=== PATIENT | male | born 1995 | race Caucasian/White ===

== ENCOUNTER 2021-05-23 09:25 | Inpatient (IN) | payer BC, MEDICAID ==
[2021-05-23] MEDS ORDERED: Sodium Chloride 0.9% 10 ML Syringe FLUSH PRN (10:16)
--- NOTE | 2021-05-23 10:16 | EDM.PDOC ---
ED HPI GENERAL MEDICAL PROBLEM - General Chief Complaint: Respiratory Problem Stated Complaint: covid Time Seen by Provider: 05/23/21 10:01 Source of Information: Reports: Patient, RN Notes Reviewed History Limitations: Reports: No Limitations - History of Present Illness INITIAL COMMENTS - FREE TEXT/NARRATIVE: Patient sent over from walk-in clinic with low oxygen, low 60s. Patient been dealing with a positive Covid test on the he started having symptoms on 16 May. His BMI is extremely elevated, greater than 30, no history of any underlying lung problems he been trying to "quit smoking cigarettes no history of any asthma or pneumonia. No history of underlying heart condition. Patient has had fevers and chills off and on, lost his sense of taste, has had some mild nausea no vomiting has had some loose stool. No burning pain or blood in the urine he has had increasing urinary frequency however. Some mild aches but just generally feeling more overall weak and in condition. No headaches no fainting spell but does feel lightheaded in general. Has noted some increasing work of breathing and has had difficulty laying flat at night and has to be sitting up occasionally. no Covid vaccination. - Related Data Allergies Allergy/AdvReac Type Severity Reaction Status Date / Time No Known Allergies Allergy Verified 05/23/21 09:41 Home Meds: Home Meds . [No Known Home Meds] 05/23/21 [History] ED ROS GENERAL - Review of Systems Review Of Systems: See Below Constitutional: Reports: Fever, Chills, Diaphoresis HEENT: Reports: Rhinitis. Denies: Throat Pain Respiratory: Reports: Shortness of Breath, Cough. Denies: Pleuritic Chest Pain Cardiovascular: Reports: Dyspnea on Exertion, Lightheadedness, PND. Denies: Chest Pain, Syncope Endocrine: Reports: Fatigue GI/Abdominal: Reports: Diarrhea, Nausea. Denies: Abdominal Pain, Bloody Stool, Vomiting : Reports: Frequency. Denies: Dysuria Musculoskeletal: Reports: Muscle Pain Skin: Reports: No Symptoms Neurological: Reports: No Symptoms Psychiatric: Reports: No Symptoms ED EXAM, GENERAL - Physical Exam Exam: See Below Exam Limited By: No Limitations General Appearance: Alert, Mild Distress, Moderate Distress Throat/Mouth: Normal Inspection, Normal Oropharynx, Normal Voice Head: Atraumatic, Normocephalic Neck: Normal Inspection, Non-Tender Respiratory/Chest: Respiratory Distress, Decreased Breath Sounds, Rhonchi. No: Wheezing, Stridor, Accessory Muscle Use Cardiovascular: Normal Peripheral Pulses, Regular Rate, Rhythm GI/Abdominal: Normal Bowel Sounds, Soft, Non-Tender Extremities: Normal Inspection, No Pedal Edema Neurological: Alert, Oriented, CN II-XII Intact Psychiatric: Normal Affect Skin Exam: Warm #1 Interpretation EKG Date: 05/23/21 Rhythm: NSR EKG Interpretation Comments: Reviewed EKG showing sinus rhythm rate of 94 ID 131 QRS is 109 QT corrected 457 RSR prime in lead V1 and V2 no acute ST elevation or ischemic changes noted. Course - Vital Signs Text/Narrative:: Positive Covid rule out hypoxia secondary Covid rule out PE or other etiology such as secondary pneumonia, he does look mildly distressed. His BMI is greater than 30, concerning for need of hospitalization. rule out Acute coronary syndrome, CHF Last Recorded V/S: Last Vital Signs Temp 99.1 F 05/23/21 09:38 Pulse 81 05/23/21 12:25 Resp 18 05/23/21 12:25 BP 131/74 05/23/21 09:38 Pulse Ox 93 L 05/23/21 12:25 - Orders/Labs/Meds Orders: Active Orders 24 hr Category Date Time Status Cardiac Monitoring [RC] . DIRECTED Care 05/23/21 10:16 Active Peripheral IV Care [RC] . DIRECTED Care 05/23/21 10:17 Active PROCALCITONIN [REF] Stat Lab 05/23/21 10:10 Received Sodium Chloride 0.9% [Saline Flush] Med 05/23/21 10:16 Active 10 ml FLUSH ASDIRECTED PRN Peripheral IV Insertion Adult [OM.PC] Stat Oth 05/23/21 10:16 Ordered RT Oxygen High Flow [RESPCARE] Stat Oth 05/23/21 10:18 Active EKG 12 Lead [EK] Stat Ther 05/23/21 10:16 Ordered Medication Orders Sodium Chloride (Sodium Chloride 0.9% 10 Ml Syringe) 10 ml FLUSH ASDIRECTED PRN PRN Reason: Keep Vein Open Last Admin: 05/23/21 10:20 Dose: 10 ml Documented by: NAM Labs: Laboratory Tests 05/23/21 05/23/21 05/23/21 Range/Units 10:10 10:10 10:10 WBC 10.62 H (4.23-9.07) K/mm3 RBC 5.29 (4.63-6.08) M/mm3 Hgb 14.1 (13.7-17.5) gm/dl Hct 43.0 (40.1-51.0) % MCV 81.3 (79.0-92.2) fl MCH 26.7 (25.7-32.2) pg MCHC 32.8 (32.2-35.5) g/dl RDW Std Deviation 46.6 H (35.1-43.9) fL Plt Count 175 (163-337) K/mm3 MPV 9.1 L (9.4-12.3) fl Neut % (Auto) 81.8 H (34.0-67.9) % Lymph % (Auto) 10.1 L (21.8-53.1) % Rice % (Auto) 6.2 (5.3-12.2) % Eos % (Auto) 0 L (0.8-7.0) Baso % (Auto) 0.2 (0.1-1.2) % Neut # (Auto) 8.69 H (1.78-5.38) K/mm3 Lymph # (Auto) 1.07 L (1.32-3.57) K/mm3 Rice # (Auto) 0.66 (0.30-0.82) K/mm3 Eos # (Auto) 0.00 L (0.04-0.54) K/mm3 Baso # (Auto) 0.02 (0.01-0.08) K/mm3 D-Dimer, Quantitative 1.22 H (0.19-0.50) mg/L VBG pH (7.30-7.40) VBG pCO2 (41-51) mmHg VBG pO2 (40-80) mmHG VBG HCO3 (22-26) meq/L VBG O2 Saturation VBG Base Excess (-4.0-2.0) O2 Delivery Device Oxygen Flow Rate Sodium 137 (136-145) mEq/L Potassium 3.5 (3.5-5.1) mEq/L Chloride 99 (98-107) mEq/L Carbon Dioxide 28 (21-32) mEq/L Anion Gap 13.5 (5-15) BUN 16 (7-18) mg/dL Creatinine 1.2 (0.7-1.3) mg/dL Est Cr Clr Drug Dosing 75.08 mL/min Estimated GFR (MDRD) > 60 (>60) mL/min BUN/Creatinine Ratio 13.3 L (14-18) Glucose 106 H (70-99) mg/dL Lactic Acid (0.4-2.0) mmol/L Calcium 8.1 L (8.5-10.1) mg/dL Total Bilirubin 0.6 (0.2-1.0) mg/dL AST 72 H (15-37) U/L ALT 58 (16-63) U/L Alkaline Phosphatase 80 (46-116) U/L Troponin I < 0.017 (0.00-0.056) ng/mL C-Reactive Protein 10.6 H* (<1.0) mg/dL NT-Pro-B Natriuret Pep (0-125) pg/mL Total Protein 7.3 (6.4-8.2) g/dl Albumin 3.1 L (3.4-5.0) g/dl Globulin 4.2 gm/dL Albumin/Globulin Ratio 0.7 L (1-2) 05/23/21 05/23/21 05/23/21 Range/Units 10:10 10:10 10:16 WBC (4.23-9.07) K/mm3 RBC (4.63-6.08) M/mm3 Hgb (13.7-17.5) gm/dl Hct (40.1-51.0) % MCV (79.0-92.2) fl MCH (25.7-32.2) pg MCHC (32.2-35.5) g/dl RDW Std Deviation (35.1-43.9) fL Plt Count (163-337) K/mm3 MPV (9.4-12.3) fl Neut % (Auto) (34.0-67.9) % Lymph % (Auto) (21.8-53.1) % Rice % (Auto) (5.3-12.2) % Eos % (Auto) (0.8-7.0) Baso % (Auto) (0.1-1.2) % Neut # (Auto) (1.78-5.38) K/mm3 Lymph # (Auto) (1.32-3.57) K/mm3 Rice # (Auto) (0.30-0.82) K/mm3 Eos # (Auto) (0.04-0.54) K/mm3 Baso # (Auto) (0.01-0.08) K/mm3 D-Dimer, Quantitative (0.19-0.50) mg/L VBG pH 7.41 H (7.30-7.40) VBG pCO2 40.1 L (41-51) mmHg VBG pO2 44.0 (40-80) mmHG VBG HCO3 25.0 (22-26) meq/L VBG O2 Saturation 74.9 VBG Base Excess 0.9 (-4.0-2.0) O2 Delivery Device Nasal cannula Oxygen Flow Rate 6.0 Sodium (136-145) mEq/L Potassium (3.5-5.1) mEq/L Chloride (98-107) mEq/L Carbon Dioxide (21-32) mEq/L Anion Gap (5-15) BUN (7-18) mg/dL Creatinine (0.7-1.3) mg/dL Est Cr Clr Drug Dosing mL/min Estimated GFR (MDRD) (>60) mL/min BUN/Creatinine Ratio (14-18) Glucose (70-99) mg/dL Lactic Acid 1.0 (0.4-2.0) mmol/L Calcium (8.5-10.1) mg/dL Total Bilirubin (0.2-1.0) mg/dL AST (15-37) U/L ALT (16-63) U/L Alkaline Phosphatase (46-116) U/L Troponin I (0.00-0.056) ng/mL C-Reactive Protein (<1.0) mg/dL NT-Pro-B Natriuret Pep 54 (0-125) pg/mL Total Protein (6.4-8.2) g/dl Albumin (3.4-5.0) g/dl Globulin gm/dL Albumin/Globulin Ratio (1-2) Meds: Medications Generic Name Dose Route Start Last Admin Trade Name Freq PRN Reason Stop Dose Admin Sodium Chloride 10 ml 05/23/21 10:16 05/23/21 10:20 Sodium Chloride 0.9% 10 Ml Syringe FLUSH 10 ml ASDIRECTED PRN Administration Keep Vein Open - Radiology Interpretation Free Text/Narrative:: Called CT scan for the contrast part no obvious definite pulmonary embolism are seen at least in the main or proximal segmental branches however there is diffuse parenchymal densities in both sides of the chest highly suspicious for Covid pneumonia degenerative changes of the spine noted fatty infiltrated hook of the liver AB venous blood gas shows a pH of 7.41 PCO2 is 40 white count is 10,600 hemoglobin 14 [place] 43 platelet count is 175,008.69 neutrophils 1.07 lymphocytes D-dimer 1.22 sodium 137 testing 3.5 chloride 99 CO2 28 BUN 16 creatinine 1.2 GFR greater [place] 60 8 sugar 106 calcium 8.1 troponin negative CRP 10.6 albumin 3.1 Departure - Departure Time of Disposition: 12:45 Disposition: Admitted As Inpatient 66 Clinical Impression: COVID, Hypoxia - Discharge Information Forms: ED Department Discharge Sepsis Event Note (ED) - Evaluation Sepsis Screening Result: Possible Sepsis Risk - Focused Exam Vital Signs: Vital Signs Temp Pulse Resp BP Pulse Ox Pulse Ox 05/23/21 12:25 81 18 93 L 05/23/21 10:57 91 L 05/23/21 09:38 99.1 F 92 24 H 131/74 65 L - My Orders Last 24 Hours: My Active Orders 05/23/21 10:10 PROCALCITONIN [REF] Stat 05/23/21 10:16 Cardiac Monitoring [RC] . DIRECTED Sodium Chloride 0.9% [Saline Flush] 10 ml FLUSH ASDIRECTED PRN Peripheral IV Insertion Adult [OM.PC] Stat EKG 12 Lead [EK] Stat 05/23/21 10:17 Peripheral IV Care [RC] . DIRECTED 05/23/21 10:18 RT Oxygen High Flow [RESPCARE] Stat - Assessment/Plan Last 24 Hours: My Active Orders 05/23/21 10:10 PROCALCITONIN [REF] Stat 05/23/21 10:16 Cardiac Monitoring [RC] . DIRECTED Sodium Chloride 0.9% [Saline Flush] 10 ml FLUSH ASDIRECTED PRN Peripheral IV Insertion Adult [OM.PC] Stat EKG 12 Lead [EK] Stat 05/23/21 10:17 Peripheral IV Care [RC] . DIRECTED 05/23/21 10:18 RT Oxygen High Flow [RESPCARE] Stat
--- NOTE | 2021-05-23 12:13 | CT ---
CT chest Technique: Multiple axial sections through the chest were obtained. Intravenous contrast was utilized. Study has been performed as a pulmonary angiogram protocol. Comparison: No prior chest imaging is available. Findings: Pulmonary arteries are not optimally opacified. Findings most likely relate to the patient's body habitus. No gross filling defects are seen within the main or proximal segmental branches to indicate definite pulmonary embolism. Thoracic aorta shows no aneurysm. No mediastinal or hilar adenopathy is seen. No pericardial thickening is seen. Diffuse fatty infiltration is noted within the liver. Lung window settings were reviewed which show diffuse parenchymal changes throughout both lungs. No pleural effusions are seen. Bone window settings were reviewed which show endplate spurring within the mid and lower thoracic spine. No acute osseous abnormality is appreciated. Impression: 1. Less than optimal pulmonary angiogram. No definite findings of pulmonary embolism are seen within the main or proximal segmental branches. 2. Diffuse parenchymal densities within both sides of the chest highly suspicious for prominent COVID pneumonia. Please correlate. 3. Degenerative change within the spine is noted. 4. Fatty infiltration within the liver. Diagnostic code #3
[2021-05-23] MEDS ORDERED: REMDESIVIR 200 MG in Sodium Chloride 0.9% 250 ML IV ONE (12:48)
[2021-05-23] MEDS ORDERED: Dexamethasone 4 MG/ML SDV IVPUSH ONE (12:49)
[2021-05-23] MEDS ORDERED: REMDESIVIR 100 MG ONE ×2 (16:23→16:30)
[2021-05-23] MEDS ORDERED: Sodium Chloride 0.9% 250 ML ONE (16:25)
--- NOTE | 2021-05-23 17:24 | PCM.HP.2 ---
H&P History of Present Illness - General Date of Service: 05/23/21 Admit Problem/Dx: Admission Diagnosis/Problem Admission Diagnosis/Problem Hypoxia - History of Present Illness Initial Comments - Free Text/Narative: 26-year-old morbidly obese male presents to the emergency department from the walk-in clinic with oxygen saturations in the 60s. Patient states that he first started developing symptoms of Covid on May 06 and was tested positive on the . He developed worsening shortness of breath, fatigue, and cough over the last few days until his parents finally told him to go to the walk-in [place] clinic. Patient states he has not had vaccination against Covid. He has no other chronic medical problems and does not smoke. He does state he has had off-and-on fevers, loss of taste and smell, and mild nausea. CT angio of the chest showed less than optimal pulmonary angiogram. No definite findings of pulmonary embolism are seen within the main or proximal segmental branches. Diffuse parenchymal densities within both sides of the chest highly suspicious for prominent COVID-19 Pneumonia. Degenerative change within the spine is noted. Fatty infiltration within the liver. Lab work was significant for C-reactive protein of 10.6, D-dimer 1.22, and white count of 10.62. Otherwise no significant lab findings. Patient was placed on high flow nasal cannula and transferred to the ICU. - Related Data Allergies/Adverse Reactions: Allergies Allergy/AdvReac Type Severity Reaction Status Date / Time No Known Allergies Allergy Verified 05/23/21 09:41 Home Medications: Home Meds . [No Known Home Meds] 05/23/21 [History] Past Medical History - Past Health History Medical/Surgical History: Denies Medical/Surgical History Endocrine/Metabolic History: Reports: Obesity/BMI 30+ - Infectious Disease History Infectious Disease History: Reports: Novel Coronavirus Social & Family History - Tobacco Use Tobacco Use Status *Q: Never Tobacco User - Recreational Drug Use Recreational Drug Use: No H&P Review of Systems - Review of Systems: Review Of Systems: Comprehensive ROS is negative, except as noted in HPI. Exam - Exam Exam: See Below - Vital Signs Vital Signs: Last Vital Signs Temp 97.8 F 05/23/21 16:59 Pulse 86 05/23/21 16:59 Resp 28 H 05/23/21 16:59 BP 133/71 05/23/21 16:59 Pulse Ox 92 L 10/03/21 16:59 Weight: 425 lb 1 oz - Exam Quality Assessment: Supplemental Oxygen General: Alert, Oriented, 4 HEENT: Conjunctiva Clear, Hearing Intact, Mucosa Moist & [place], Normal Nasal Septum Neck: Supple, Trachea Midline, 2 Lungs: Decreased Breath Sounds, Crackles (Throughout both lung [place]). No: Normal Respiratory Effort (Increased respiratory rate and effort) Cardiovascular: Regular Rate, Regular Rhythm GI/Abdominal Exam: Normal Bowel Sounds, Soft, Non-Tender, No Organomegaly, No Distention (Morbidly obese) Extremities: Normal Inspection, Normal Range of Motion, Non-Tender, No Pedal Edema, Normal Capillary Refill Skin: Warm, Dry, Intact Neurological: Cranial Nerves Intact Neuro Extensive - Mental Status: Alert, Oriented x3, Normal Mood/Affect, Normal Cognition, Memory Intact Neuro Extensive - Motor, Sensory, Reflexes: CN II-XII Intact, Normal Gait, Normal Reflexes Psychiatric: Alert, Normal Affect, Normal Mood - Patient Data Lab Results Last 24 hrs: Laboratory Results - last 24 hr 05/23/21 05/23/21 05/23/21 Range/Units 10:10 10:10 10:10 WBC 10.62 H (4.23-9.07) K/mm3 RBC 5.29 (4.63-6.08) M/mm3 Hgb 14.1 (13.7-17.5) gm/dl Hct 43.0 (40.1-51.0) % MCV 81.3 (79.0-92.2) fl MCH 26.7 (25.7-32.2) pg MCHC 32.8 (32.2-35.5) g/dl RDW Std Deviation 46.6 H (35.1-43.9) fL Plt Count 175 (163-337) K/mm3 MPV 9.1 L (9.4-12.3) fl Neut % (Auto) 81.8 H (34.0-67.9) % Lymph % (Auto) 10.1 L (21.8-53.1) % Nash % (Auto) 6.2 (5.3-12.2) % Eos % (Auto) 0 L (0.8-7.0) Baso % (Auto) 0.2 (0.1-1.2) % Neut # (Auto) 8.69 H (1.78-5.38) K/mm3 Lymph # (Auto) 1.07 L (1.32-3.57) K/mm3 Nash # (Auto) 0.66 (0.30-0.82) K/mm3 Eos # (Auto) 0.00 L (0.04-0.54) K/mm3 Baso # (Auto) 0.02 (0.01-0.08) K/mm3 Manual Slide Review Normal smear D-Dimer, Quantitative 1.22 H (0.19-0.50) mg/L VBG pH (7.30-7.40) VBG pCO2 (41-51) mmHg VBG pO2 (40-80) mmHG VBG HCO3 (22-26) meq/L VBG O2 Saturation VBG Base Excess (-4.0-2.0) O2 Delivery Device Oxygen Flow Rate Sodium 137 (136-145) mEq/L Potassium 3.5 (3.5-5.1) mEq/L Chloride 99 (98-107) mEq/L Carbon Dioxide 28 (21-32) mEq/L Anion Gap 13.5 (5-15) BUN 16 (7-18) mg/dL Creatinine 1.2 (0.7-1.3) mg/dL Est Cr Clr Drug Dosing 75.08 mL/min Estimated GFR (MDRD) > 60 (>60) mL/min BUN/Creatinine Ratio 13.3 L (14-18) Glucose 106 H (70-99) mg/dL Lactic Acid (0.4-2.0) mmol/L Calcium 8.1 L (8.5-10.1) mg/dL Total Bilirubin 0.6 (0.2-1.0) mg/dL Direct Bilirubin (0.0-0.2) mg/dl Indirect Bilirubin AST 72 H (15-37) U/L ALT 58 (16-63) U/L Alkaline Phosphatase 80 (46-116) U/L Troponin I < 0.017 (0.00-0.056) ng/mL C-Reactive Protein 10.6 H* (<1.0) mg/dL NT-Pro-B Natriuret Pep (0-125) pg/mL Total Protein 7.3 (6.4-8.2) g/dl Albumin 3.1 L (3.4-5.0) g/dl Globulin 4.2 gm/dL Albumin/Globulin Ratio 0.7 L (1-2) 05/23/21 05/23/21 05/23/21 Range/Units 10:10 10:10 10:16 WBC (4.23-9.07) K/mm3 RBC (4.63-6.08) M/mm3 Hgb (13.7-17.5) gm/dl Hct (40.1-51.0) % MCV (79.0-92.2) fl MCH (25.7-32.2) pg MCHC (32.2-35.5) g/dl RDW Std Deviation (35.1-43.9) fL Plt Count (163-337) K/mm3 MPV (9.4-12.3) fl Neut % (Auto) (34.0-67.9) % Lymph % (Auto) (21.8-53.1) % Nash % (Auto) (5.3-12.2) % Eos % (Auto) (0.8-7.0) Baso % (Auto) (0.1-1.2) % Neut # (Auto) (1.78-5.38) K/mm3 Lymph # (Auto) (1.32-3.57) K/mm3 Nash # (Auto) (0.30-0.82) K/mm3 Eos # (Auto) (0.04-0.54) K/mm3 Baso # (Auto) (0.01-0.08) K/mm3 Manual Slide Review D-Dimer, Quantitative (0.19-0.50) mg/L VBG pH 7.41 H (7.30-7.40) VBG pCO2 40.1 L (41-51) mmHg VBG pO2 44.0 (40-80) mmHG VBG HCO3 25.0 (22-26) meq/L VBG O2 Saturation 74.9 VBG Base Excess 0.9 (-4.0-2.0) O2 Delivery Device Nasal cannula Oxygen Flow Rate 6.0 Sodium (136-145) mEq/L Potassium (3.5-5.1) mEq/L Chloride (98-107) mEq/L Carbon Dioxide (21-32) mEq/L Anion Gap (5-15) BUN (7-18) mg/dL Creatinine (0.7-1.3) mg/dL Est Cr Clr Drug Dosing mL/min Estimated GFR (MDRD) (>60) mL/min BUN/Creatinine Ratio (14-18) Glucose (70-99) mg/dL Lactic Acid 1.0 (0.4-2.0) mmol/L Calcium (8.5-10.1) mg/dL Total Bilirubin (0.2-1.0) mg/dL Direct Bilirubin (0.0-0.2) mg/dl Indirect Bilirubin AST (15-37) U/L ALT (16-63) U/L Alkaline Phosphatase (46-116) U/L Troponin I (0.00-0.056) ng/mL C-Reactive Protein (<1.0) mg/dL NT-Pro-B Natriuret Pep 54 (0-125) pg/mL Total Protein (6.4-8.2) g/dl Albumin (3.4-5.0) g/dl Globulin gm/dL Albumin/Globulin Ratio (1-2) 05/23/21 Range/Units 13:22 WBC (4.23-9.07) K/mm3 RBC (4.63-6.08) M/mm3 Hgb (13.7-17.5) gm/dl Hct (40.1-51.0) % MCV (79.0-92.2) fl MCH (25.7-32.2) pg MCHC (32.2-35.5) g/dl RDW Std Deviation (35.1-43.9) fL Plt Count (163-337) K/mm3 MPV (9.4-12.3) fl Neut % (Auto) (34.0-67.9) % Lymph % (Auto) (21.8-53.1) % Nash % (Auto) (5.3-12.2) % Eos % (Auto) (0.8-7.0) Baso % (Auto) (0.1-1.2) % Neut # (Auto) (1.78-5.38) K/mm3 Lymph # (Auto) (1.32-3.57) K/mm3 Nash # (Auto) (0.30-0.82) K/mm3 Eos # (Auto) (0.04-0.54) K/mm3 Baso # (Auto) (0.01-0.08) K/mm3 Manual Slide Review D-Dimer, Quantitative (0.19-0.50) mg/L VBG pH (7.30-7.40) VBG pCO2 (41-51) mmHg VBG pO2 (40-80) mmHG VBG HCO3 (22-26) meq/L VBG O2 Saturation VBG Base Excess (-4.0-2.0) O2 Delivery Device Oxygen Flow Rate Sodium (136-145) mEq/L Potassium (3.5-5.1) mEq/L Chloride (98-107) mEq/L Carbon Dioxide (21-32) mEq/L Anion Gap (5-15) BUN (7-18) mg/dL Creatinine (0.7-1.3) mg/dL Est Cr Clr Drug Dosing mL/min Estimated GFR (MDRD) (>60) mL/min BUN/Creatinine Ratio (14-18) Glucose (70-99) mg/dL Lactic Acid (0.4-2.0) mmol/L Calcium (8.5-10.1) mg/dL Total Bilirubin 0.7 (0.2-1.0) mg/dL Direct Bilirubin 0.30 H (0.0-0.2) mg/dl Indirect Bilirubin 0.40 AST 75 H (15-37) U/L ALT 57 (16-63) U/L Alkaline Phosphatase 81 (46-116) U/L Troponin I (0.00-0.056) ng/mL C-Reactive Protein (<1.0) mg/dL NT-Pro-B Natriuret Pep (0-125) pg/mL Total Protein 7.5 (6.4-8.2) g/dl Albumin 3.2 L (3.4-5.0) g/dl Globulin 4.3 gm/dL Albumin/Globulin Ratio 0.7 L (1-2) Result Diagrams: 05/23/21 10:10 05/23/21 10:10 Sepsis Event Note - Evaluation Sepsis Screening Result: Possible Sepsis Risk - Focused Exam Vital Signs: Vital Signs Temp Temp Pulse Pulse Resp BP BP 05/23/21 16:59 97.8 F 86 28 H 133/71 05/23/21 14:00 05/23/21 12:25 81 18 05/23/21 10:57 05/23/21 09:38 99.1 F 92 24 H 131/74 Pulse Ox Pulse Ox 05/23/21 16:59 92 L 05/23/21 14:00 89 L 05/23/21 12:25 93 L 05/23/21 10:57 91 L 05/23/21 09:38 65 L - Problem List (1) Pneumonia due to COVID-19 virus SNOMED Code(s): 965083759605547167 ICD Code: U07.1 - COVID-19; J12.82 - PNEUMONIA DUE TO CORONAVIRUS DISEASE 2019 Status: Acute Current Visit: Yes (2) Respiratory failure SNOMED Code(s): 686263703 ICD Code: J96.90 - RESPIRATORY FAILURE, UNSP, UNSP W HYPOXIA OR HYPERCAPNIA Status: Acute Current Visit: Yes Problem List Initiated/Reviewed/Updated: Yes Orders Last 24hrs: Active Orders 24 hr Category Date Time Status Admission Status [Patient Status] [ADT] Routine ADT 05/23/21 16:46 Active PROCALCITONIN [REF] Stat Lab 05/23/21 10:10 Received Sodium Chloride 0.9% [Saline Flush] Med 05/23/21 10:16 Active 10 ml FLUSH ASDIRECTED PRN Peripheral IV Insertion Adult [OM.PC] Stat Oth 05/23/21 10:16 Ordered RT Oxygen High Flow [RESPCARE] Stat Oth 05/23/21 10:18 Active EKG 12 Lead [EK] Stat Ther 05/23/21 10:16 Ordered Medication Orders Sodium Chloride (Sodium Chloride 0.9% 10 Ml Syringe) 10 ml FLUSH ASDIRECTED PRN PRN Reason: Keep Vein Open Last Admin: 05/23/21 10:20 Dose: 10 ml Documented by: NAM Assessment/Plan Comment:: 26-year-old morbidly obese male admitted for respiratory failure secondary to COVID-19 pneumonia. COVID-19 pneumonia Respiratory failure * Presented to the [facility] walk-in clinic with oxygen saturations in the 60s * Placed on high flow nasal cannula in the emergency department * CTA of the chest revealed Covid pneumonia but no obvious PE * CRP 10.6, and WBC 10.62 * Given remdesivir and dexamethasone in the emergency department * Unvaccinated against Covid Fatty liver * Mild elevation in AST with normal ALT, alkaline phosphatase, and total bilirubin * Albumin slightly low at 3.1, likely secondary to COVID-19 * CT scan of the chest demonstrated fatty liver Plan * Admit to ICU * RT, Acapella, incentive spirometer * Continue high flow nasal cannula to keep oxygen saturations between 88 and 94% * Continue remdesivir and dexamethasone * I discussed Actemra with the patient and he agreed. It may not be available tonight, but he can get it first thing in the morning I spoke with patient to provide information about [facility] of Actemra. I offered them the "fax sheet for patients and caregivers" for Actemra to read and review. I stated the therapy has been approved by an emergency use authorization process and has not been fully FDA reviewed or approved. I share potential risks from the therapy including allergic reactions, increased risk of secondary infections, or other reactions. Discussed there are other potential treatment options that are currently not FDA approved to treat COVID-19. Offered opportunity to ask questions and all questions were answered. Patient voiced understanding and agreed to proceed with treatment. * No obvious need for antibiotics at this time * Follow CBC, CMP, mag, Phos, D-dimer * He would benefit from dietary consult * VTE prophylaxis with Lovenox 40 mg twice daily because of his size * CODE STATUS: Full code - Mortality Measure Prognosis:: Good
[2021-05-23] MEDS ORDERED: Acetaminophen 325 MG Tab PO PRN (17:25)
[2021-05-23] MEDS ORDERED: Ondansetron 4 MG/2 ML SDV IV PRN (17:25)
[2021-05-23] MEDS: Dexamethasone 10 MG/ML SDV ONE ×2 (17:50→17:55)
[2021-05-23] MEDS: Temazepam 15 MG Cap PO PRN (20:02)
[2021-05-23] MEDS: Enoxaparin 40 MG/0.4 ML Syringe SUBCUT SCH (20:02)
[2021-05-23] MEDS: Albuterol 6.7 GM Inhaler INH PRN (20:27)
[2021-05-23] MEDS: Acetaminophen/Codeine 300-30 MG Tab PO PRN (22:35)
[2021-05-23] MEDS: Benzonatate 100 MG Cap PO PRN (22:35)
[2021-05-24] MEDS: Benzonatate 100 MG Cap PO PRN (04:39)
[2021-05-24] MEDS: Acetaminophen/Codeine 300-30 MG Tab PO PRN ×2 (04:39→08:28)
[2021-05-24] MEDS: Albuterol 6.7 GM Inhaler INH PRN ×3 (04:57→21:02)
--- NOTE | 2021-05-24 07:55 | PCM.PN ---
- General Info Date of Service: 05/24/21 Admission Dx/Problem (Free Text): Admission Diagnosis/Problem Admission Diagnosis/Problem Hypoxia/covid pneumonia Functional Status: Reports: Pain Controlled - Review of Systems General: Reports: Weakness, Fatigue, Malaise HEENT: Reports: No Symptoms Pulmonary: Reports: Shortness of Breath, Cough, Sputum Cardiovascular: Reports: No Symptoms Gastrointestinal: Reports: No Symptoms Genitourinary: Reports: No Symptoms Musculoskeletal: Reports: No Symptoms Skin: Reports: No Symptoms Neurological: Reports: No Symptoms Psychiatric: Reports: No Symptoms - Patient Data Vitals - Most Recent: Last Vital Signs Temp 97.2 F 05/24/21 04:00 Pulse 86 05/23/21 16:59 Resp 24 H 05/24/21 04:00 BP 127/62 05/24/21 04:00 Pulse Ox 93 L 05/24/21 06:00 Weight - Most Recent: 414 lb 8 oz I&O - Last 24 Hours: Intake & Output 05/23/21 05/24/21 05/24/21 22:59 06:59 14:59 Intake Total 800 Balance 800 Lab Results Last 24 Hours: Laboratory Results - last 24 hr 05/23/21 05/23/21 05/23/21 Range/Units 10:10 10:10 10:10 WBC 10.62 H (4.23-9.07) K/mm3 RBC 5.29 (4.63-6.08) M/mm3 Hgb 14.1 (13.7-17.5) gm/dl Hct 43.0 (40.1-51.0) % MCV 81.3 (79.0-92.2) fl MCH 26.7 (25.7-32.2) pg MCHC 32.8 (32.2-35.5) g/dl RDW Std Deviation 46.6 H (35.1-43.9) fL Plt Count 175 (163-337) K/mm3 MPV 9.1 L (9.4-12.3) fl Neut % (Auto) 81.8 H (34.0-67.9) % Lymph % (Auto) 10.1 L (21.8-53.1) % Yancey % (Auto) 6.2 (5.3-12.2) % Eos % (Auto) 0 L (0.8-7.0) Baso % (Auto) 0.2 (0.1-1.2) % Neut # (Auto) 8.69 H (1.78-5.38) K/mm3 Lymph # (Auto) 1.07 L (1.32-3.57) K/mm3 Yancey # (Auto) 0.66 (0.30-0.82) K/mm3 Eos # (Auto) 0.00 L (0.04-0.54) K/mm3 Baso # (Auto) 0.02 (0.01-0.08) K/mm3 Manual Slide Review Normal smear D-Dimer, Quantitative 1.22 H (0.19-0.50) mg/L VBG pH (7.30-7.40) VBG pCO2 (41-51) mmHg VBG pO2 (40-80) mmHG VBG HCO3 (22-26) meq/L VBG O2 Saturation VBG Base Excess (-4.0-2.0) O2 Delivery Device Oxygen Flow Rate Sodium 137 (136-145) mEq/L Potassium 3.5 (3.5-5.1) mEq/L Chloride 99 (98-107) mEq/L Carbon Dioxide 28 (21-32) mEq/L Anion Gap 13.5 (5-15) BUN 16 (7-18) mg/dL Creatinine 1.2 (0.7-1.3) mg/dL Est Cr Clr Drug Dosing 75.08 mL/min Estimated GFR (MDRD) > 60 (>60) mL/min BUN/Creatinine Ratio 13.3 L (14-18) Glucose 106 H (70-99) mg/dL Lactic Acid (0.4-2.0) mmol/L Calcium 8.1 L (8.5-10.1) mg/dL Phosphorus (2.6-4.7) mg/dL Magnesium (1.8-2.4) mg/dL Total Bilirubin 0.6 (0.2-1.0) mg/dL Direct Bilirubin (0.0-0.2) mg/dl Indirect Bilirubin AST 72 H (15-37) U/L ALT 58 (16-63) U/L Alkaline Phosphatase 80 (46-116) U/L Troponin I < 0.017 (0.00-0.056) ng/mL C-Reactive Protein 10.6 H* (<1.0) mg/dL NT-Pro-B Natriuret Pep (0-125) pg/mL Total Protein 7.3 (6.4-8.2) g/dl Albumin 3.1 L (3.4-5.0) g/dl Globulin 4.2 gm/dL Albumin/Globulin Ratio 0.7 L (1-2) 05/23/21 05/23/21 05/23/21 Range/Units 10:10 10:10 10:16 WBC (4.23-9.07) K/mm3 RBC (4.63-6.08) M/mm3 Hgb (13.7-17.5) gm/dl Hct (40.1-51.0) % MCV (79.0-92.2) fl MCH (25.7-32.2) pg MCHC (32.2-35.5) g/dl RDW Std Deviation (35.1-43.9) fL Plt Count (163-337) K/mm3 MPV (9.4-12.3) fl Neut % (Auto) (34.0-67.9) % Lymph % (Auto) (21.8-53.1) % Yancey % (Auto) (5.3-12.2) % Eos % (Auto) (0.8-7.0) Baso % (Auto) (0.1-1.2) % Neut # (Auto) (1.78-5.38) K/mm3 Lymph # (Auto) (1.32-3.57) K/mm3 Yancey # (Auto) (0.30-0.82) K/mm3 Eos # (Auto) (0.04-0.54) K/mm3 Baso # (Auto) (0.01-0.08) K/mm3 Manual Slide Review D-Dimer, Quantitative (0.19-0.50) mg/L VBG pH 7.41 H (7.30-7.40) VBG pCO2 40.1 L (41-51) mmHg VBG pO2 44.0 (40-80) mmHG VBG HCO3 25.0 (22-26) meq/L VBG O2 Saturation 74.9 VBG Base Excess 0.9 (-4.0-2.0) O2 Delivery Device Nasal cannula Oxygen Flow Rate 6.0 Sodium (136-145) mEq/L Potassium (3.5-5.1) mEq/L Chloride (98-107) mEq/L Carbon Dioxide (21-32) mEq/L Anion Gap (5-15) BUN (7-18) mg/dL Creatinine (0.7-1.3) mg/dL Est Cr Clr Drug Dosing mL/min Estimated GFR (MDRD) (>60) mL/min BUN/Creatinine Ratio (14-18) Glucose (70-99) mg/dL Lactic Acid 1.0 (0.4-2.0) mmol/L Calcium (8.5-10.1) mg/dL Phosphorus (2.6-4.7) mg/dL Magnesium (1.8-2.4) mg/dL Total Bilirubin (0.2-1.0) mg/dL Direct Bilirubin (0.0-0.2) mg/dl Indirect Bilirubin AST (15-37) U/L ALT (16-63) U/L Alkaline Phosphatase (46-116) U/L Troponin I (0.00-0.056) ng/mL C-Reactive Protein (<1.0) mg/dL NT-Pro-B Natriuret Pep 54 (0-125) pg/mL Total Protein (6.4-8.2) g/dl Albumin (3.4-5.0) g/dl Globulin gm/dL Albumin/Globulin Ratio (1-2) 05/23/21 05/24/21 05/24/21 Range/Units 13:22 05:26 05:26 WBC 11.94 H (4.23-9.07) K/mm3 RBC 5.31 (4.63-6.08) M/mm3 Hgb 13.9 (13.7-17.5) gm/dl Hct 43.5 (40.1-51.0) % MCV 81.9 (79.0-92.2) fl MCH 26.2 (25.7-32.2) pg MCHC 32.0 L (32.2-35.5) g/dl RDW Std Deviation 46.3 H (35.1-43.9) fL Plt Count 182 (163-337) K/mm3 MPV 9.3 L (9.4-12.3) fl Neut % (Auto) 84.8 H (34.0-67.9) % Lymph % (Auto) 8.9 L (21.8-53.1) % Yancey % (Auto) 4.7 L (5.3-12.2) % Eos % (Auto) 0 L (0.8-7.0) Baso % (Auto) 0.2 (0.1-1.2) % Neut # (Auto) 10.13 H (1.78-5.38) K/mm3 Lymph # (Auto) 1.06 L (1.32-3.57) K/mm3 Yancey # (Auto) 0.56 (0.30-0.82) K/mm3 Eos # (Auto) 0.00 L (0.04-0.54) K/mm3 Baso # (Auto) 0.02 (0.01-0.08) K/mm3 Manual Slide Review Normal smear D-Dimer, Quantitative 1.76 H (0.19-0.50) mg/L VBG pH (7.30-7.40) VBG pCO2 (41-51) mmHg VBG pO2 (40-80) mmHG VBG HCO3 (22-26) meq/L VBG O2 Saturation VBG Base Excess (-4.0-2.0) O2 Delivery Device Oxygen Flow Rate Sodium (136-145) mEq/L Potassium (3.5-5.1) mEq/L Chloride (98-107) mEq/L Carbon Dioxide (21-32) mEq/L Anion Gap (5-15) BUN (7-18) mg/dL Creatinine (0.7-1.3) mg/dL Est Cr Clr Drug Dosing mL/min Estimated GFR (MDRD) (>60) mL/min BUN/Creatinine Ratio (14-18) Glucose (70-99) mg/dL Lactic Acid (0.4-2.0) mmol/L Calcium (8.5-10.1) mg/dL Phosphorus (2.6-4.7) mg/dL Magnesium (1.8-2.4) mg/dL Total Bilirubin 0.7 (0.2-1.0) mg/dL Direct Bilirubin 0.30 H (0.0-0.2) mg/dl Indirect Bilirubin 0.40 AST 75 H (15-37) U/L ALT 57 (16-63) U/L Alkaline Phosphatase 81 (46-116) U/L Troponin I (0.00-0.056) ng/mL C-Reactive Protein (<1.0) mg/dL NT-Pro-B Natriuret Pep (0-125) pg/mL Total Protein 7.5 (6.4-8.2) g/dl Albumin 3.2 L (3.4-5.0) g/dl Globulin 4.3 gm/dL Albumin/Globulin Ratio 0.7 L (1-2) 05/24/21 Range/Units 05:26 WBC (4.23-9.07) K/mm3 RBC (4.63-6.08) M/mm3 Hgb (13.7-17.5) gm/dl Hct (40.1-51.0) % MCV (79.0-92.2) fl MCH (25.7-32.2) pg MCHC (32.2-35.5) g/dl RDW Std Deviation (35.1-43.9) fL Plt Count (163-337) K/mm3 MPV (9.4-12.3) fl Neut % (Auto) (34.0-67.9) % Lymph % (Auto) (21.8-53.1) % Yancey % (Auto) (5.3-12.2) % Eos % (Auto) (0.8-7.0) Baso % (Auto) (0.1-1.2) % Neut # (Auto) (1.78-5.38) K/mm3 Lymph # (Auto) (1.32-3.57) K/mm3 Yancey # (Auto) (0.30-0.82) K/mm3 Eos # (Auto) (0.04-0.54) K/mm3 Baso # (Auto) (0.01-0.08) K/mm3 Manual Slide Review D-Dimer, Quantitative (0.19-0.50) mg/L VBG pH (7.30-7.40) VBG pCO2 (41-51) mmHg VBG pO2 (40-80) mmHG VBG HCO3 (22-26) meq/L VBG O2 Saturation VBG Base Excess (-4.0-2.0) O2 Delivery Device Oxygen Flow Rate Sodium 139 (136-145) mEq/L Potassium 4.1 (3.5-5.1) mEq/L Chloride 101 (98-107) mEq/L Carbon Dioxide 29 (21-32) mEq/L Anion Gap 13.1 (5-15) BUN 19 H (7-18) mg/dL Creatinine 1.1 (0.7-1.3) mg/dL Est Cr Clr Drug Dosing 85.21 mL/min Estimated GFR (MDRD) > 60 (>60) mL/min BUN/Creatinine Ratio 17.3 (14-18) Glucose 106 H (70-99) mg/dL Lactic Acid (0.4-2.0) mmol/L Calcium 8.4 L (8.5-10.1) mg/dL Phosphorus 4.8 H (2.6-4.7) mg/dL Magnesium 2.5 H (1.8-2.4) mg/dL Total Bilirubin 0.7 (0.2-1.0) mg/dL Direct Bilirubin (0.0-0.2) mg/dl Indirect Bilirubin AST 77 H (15-37) U/L ALT 58 (16-63) U/L Alkaline Phosphatase 80 (46-116) U/L Troponin I (0.00-0.056) ng/mL C-Reactive Protein 13.6 H* (<1.0) mg/dL NT-Pro-B Natriuret Pep (0-125) pg/mL Total Protein 7.1 (6.4-8.2) g/dl Albumin 2.9 L (3.4-5.0) g/dl Globulin 4.2 gm/dL Albumin/Globulin Ratio 0.7 L (1-2) Med Orders - Current: Current Medications Acetaminophen (Acetaminophen 325 Mg Tab) 650 mg PO Q4H PRN PRN Reason: Pain (Mild 1-3)/fever Acetaminophen/Codeine Phosphate (Acetaminophen/Codeine 300-30 Mg Tab) 2 tab PO Q4H PRN PRN Reason: Cough Last Admin: 05/24/21 04:39 Dose: 2 tab Documented by: Albuterol (Albuterol 6.7 Gm Inhaler) 0 gm INH Q4H PRN PRN Reason: Shortness of Breath Last Admin: 05/24/21 04:57 Dose: 2 inhalation Documented by: Albuterol/Ipratropium (Albuterol/Ipratropium 3.0-0.5 Mg/3 Ml Neb Soln) 3 ml NEB Q4H PRN PRN Reason: Shortness Of Breath/wheezing Benzonatate (Benzonatate 100 Mg Cap) 200 mg PO TID PRN PRN Reason: Cough Last Admin: 05/24/21 04:39 Dose: 200 mg Documented by: Dexamethasone (Dexamethasone 4 Mg Tab) 6 mg PO DAILY LIS Stop: 06/02/21 09:01 Enoxaparin Sodium (Enoxaparin 40 Mg/0.4 Ml Syringe) 40 mg SUBCUT BID [facility] Last Admin: 05/23/21 20:02 Dose: 40 mg Documented by: Remdesivir 100 mg/ Sodium (Chloride) 100 mls @ 100 mls/hr IV Q24H LIS Stop: 05/27/21 18:59 Tocilizumab 800 mg/ Sodium (Chloride) 100 mls @ 100 mls/hr IV ONETIME ONE Stop: 05/24/21 08:59 Ondansetron HCl (Ondansetron 4 Mg/2 Ml Sdv) 4 mg IV Q6H PRN PRN Reason: Nausea/Vomiting Sodium Chloride (Sodium Chloride 0.9% 10 Ml Syringe) 10 ml FLUSH ASDIRECTED PRN PRN Reason: Keep Vein Open Last Admin: 05/23/21 10:20 Dose: 10 ml Documented by: Temazepam (Temazepam 15 Mg Cap) 15 mg PO BEDTIME PRN PRN Reason: Insomnia Last Admin: 05/23/21 20:02 Dose: 15 mg Documented by: Discontinued Medications Dexamethasone (Dexamethasone 4 Mg/Ml Sdv) 6 mg IVPUSH ONETIME ONE Stop: 05/23/21 12:50 Last Admin: 05/23/21 17:56 Dose: 6 mg Documented by: Dexamethasone (Dexamethasone 10 Mg/Ml Sdv) Confirm Administered Dose 10 mg .ROUTE .STK-MED ONE Stop: 05/23/21 16:24 Last Admin: 05/23/21 17:55 Dose: Not Given Documented by: Remdesivir 200 mg/ Sodium (Chloride) 250 mls @ 250 mls/hr IV ONETIME ONE Stop: 05/23/21 12:49 Last Admin: 05/23/21 17:51 Dose: 250 mls/hr Documented by: Remdesivir (Remdesivir) Confirm Administered Dose 100 mls @ as directed .ROUTE .STK-MED ONE Stop: 05/23/21 16:24 Last Admin: 05/23/21 18:10 Dose: Not Given Documented by: Sodium Chloride (Normal Saline) Confirm Administered Dose 250 mls @ as directed .ROUTE .STK-MED ONE Stop: 05/23/21 16:26 Last Admin: 05/23/21 18:13 Dose: Not Given Documented by: Remdesivir (Remdesivir) Confirm Administered Dose 100 mls @ as directed .ROUTE .STK-MED ONE Stop: 05/23/21 16:31 Last Admin: 05/23/21 18:13 Dose: Not Given Documented by: - Exam General: Alert, Oriented, Cooperative, Moderate Distress HEENT: Pupils Equal, Pupils Reactive Neck: Supple Lungs: Decreased Breath Sounds, Rales, Rhonchi Cardiovascular: Regular Rate, Regular Rhythm GI/Abdominal Exam: Normal Bowel Sounds, Soft Extremities: Normal Inspection Skin: Warm Neurological: No New Focal Deficit Psy/Mental Status: Alert - Patient Data Lab Results Last 24 hrs: Laboratory Results - last 24 hr 05/23/21 05/23/21 05/23/21 Range/Units 10:10 10:10 10:10 WBC 10.62 H (4.23-9.07) K/mm3 RBC 5.29 (4.63-6.08) M/mm3 Hgb 14.1 (13.7-17.5) gm/dl Hct 43.0 (40.1-51.0) % MCV 81.3 (79.0-92.2) fl MCH 26.7 (25.7-32.2) pg MCHC 32.8 (32.2-35.5) g/dl RDW Std Deviation 46.6 H (35.1-43.9) fL Plt Count 175 (163-337) K/mm3 MPV 9.1 L (9.4-12.3) fl Neut % (Auto) 81.8 H (34.0-67.9) % Lymph % (Auto) 10.1 L (21.8-53.1) % Yancey % (Auto) 6.2 (5.3-12.2) % Eos % (Auto) 0 L (0.8-7.0) Baso % (Auto) 0.2 (0.1-1.2) % Neut # (Auto) 8.69 H (1.78-5.38) K/mm3 Lymph # (Auto) 1.07 L (1.32-3.57) K/mm3 Yancey # (Auto) 0.66 (0.30-0.82) K/mm3 Eos # (Auto) 0.00 L (0.04-0.54) K/mm3 Baso # (Auto) 0.02 (0.01-0.08) K/mm3 Manual Slide Review Normal smear D-Dimer, Quantitative 1.22 H (0.19-0.50) mg/L VBG pH (7.30-7.40) VBG pCO2 (41-51) mmHg VBG pO2 (40-80) mmHG VBG HCO3 (22-26) meq/L VBG O2 Saturation VBG Base Excess (-4.0-2.0) O2 Delivery Device Oxygen Flow Rate Sodium 137 (136-145) mEq/L Potassium 3.5 (3.5-5.1) mEq/L Chloride 99 (98-107) mEq/L Carbon Dioxide 28 (21-32) mEq/L Anion Gap 13.5 (5-15) BUN 16 (7-18) mg/dL Creatinine 1.2 (0.7-1.3) mg/dL Est Cr Clr Drug Dosing 75.08 mL/min Estimated GFR (MDRD) > 60 (>60) mL/min BUN/Creatinine Ratio 13.3 L (14-18) Glucose 106 H (70-99) mg/dL Lactic Acid (0.4-2.0) mmol/L Calcium 8.1 L (8.5-10.1) mg/dL Phosphorus (2.6-4.7) mg/dL Magnesium (1.8-2.4) mg/dL Total Bilirubin 0.6 (0.2-1.0) mg/dL Direct Bilirubin (0.0-0.2) mg/dl Indirect Bilirubin AST 72 H (15-37) U/L ALT 58 (16-63) U/L Alkaline Phosphatase 80 (46-116) U/L Troponin I < 0.017 (0.00-0.056) ng/mL C-Reactive Protein 10.6 H* (<1.0) mg/dL NT-Pro-B Natriuret Pep (0-125) pg/mL Total Protein 7.3 (6.4-8.2) g/dl Albumin 3.1 L (3.4-5.0) g/dl Globulin 4.2 gm/dL Albumin/Globulin Ratio 0.7 L (1-2) 05/23/21 05/23/21 05/23/21 Range/Units 10:10 10:10 10:16 WBC (4.23-9.07) K/mm3 RBC (4.63-6.08) M/mm3 Hgb (13.7-17.5) gm/dl Hct (40.1-51.0) % MCV (79.0-92.2) fl MCH (25.7-32.2) pg MCHC (32.2-35.5) g/dl RDW Std Deviation (35.1-43.9) fL Plt Count (163-337) K/mm3 MPV (9.4-12.3) fl Neut % (Auto) (34.0-67.9) % Lymph % (Auto) (21.8-53.1) % Yancey % (Auto) (5.3-12.2) % Eos % (Auto) (0.8-7.0) Baso % (Auto) (0.1-1.2) % Neut # (Auto) (1.78-5.38) K/mm3 Lymph # (Auto) (1.32-3.57) K/mm3 Yancey # (Auto) (0.30-0.82) K/mm3 Eos # (Auto) (0.04-0.54) K/mm3 Baso # (Auto) (0.01-0.08) K/mm3 Manual Slide Review D-Dimer, Quantitative (0.19-0.50) mg/L VBG pH 7.41 H (7.30-7.40) VBG pCO2 40.1 L (41-51) mmHg VBG pO2 44.0 (40-80) mmHG VBG HCO3 25.0 (22-26) meq/L VBG O2 Saturation 74.9 VBG Base Excess 0.9 (-4.0-2.0) O2 Delivery Device Nasal cannula Oxygen Flow Rate 6.0 Sodium (136-145) mEq/L Potassium (3.5-5.1) mEq/L Chloride (98-107) mEq/L Carbon Dioxide (21-32) mEq/L Anion Gap (5-15) BUN (7-18) mg/dL Creatinine (0.7-1.3) mg/dL Est Cr Clr Drug Dosing mL/min Estimated GFR (MDRD) (>60) mL/min BUN/Creatinine Ratio (14-18) Glucose (70-99) mg/dL Lactic Acid 1.0 (0.4-2.0) mmol/L Calcium (8.5-10.1) mg/dL Phosphorus (2.6-4.7) mg/dL Magnesium (1.8-2.4) mg/dL Total Bilirubin (0.2-1.0) mg/dL Direct Bilirubin (0.0-0.2) mg/dl Indirect Bilirubin AST (15-37) U/L ALT (16-63) U/L Alkaline Phosphatase (46-116) U/L Troponin I (0.00-0.056) ng/mL C-Reactive Protein (<1.0) mg/dL NT-Pro-B Natriuret Pep 54 (0-125) pg/mL Total Protein (6.4-8.2) g/dl Albumin (3.4-5.0) g/dl Globulin gm/dL Albumin/Globulin Ratio (1-2) 05/23/21 05/24/21 05/24/21 Range/Units 13:22 05:26 05:26 WBC 11.94 H (4.23-9.07) K/mm3 RBC 5.31 (4.63-6.08) M/mm3 Hgb 13.9 (13.7-17.5) gm/dl Hct 43.5 (40.1-51.0) % MCV 81.9 (79.0-92.2) fl MCH 26.2 (25.7-32.2) pg MCHC 32.0 L (32.2-35.5) g/dl RDW Std Deviation 46.3 H (35.1-43.9) fL Plt Count 182 (163-337) K/mm3 MPV 9.3 L (9.4-12.3) fl Neut % (Auto) 84.8 H (34.0-67.9) % Lymph % (Auto) 8.9 L (21.8-53.1) % Yancey % (Auto) 4.7 L (5.3-12.2) % Eos % (Auto) 0 L (0.8-7.0) Baso % (Auto) 0.2 (0.1-1.2) % Neut # (Auto) 10.13 H (1.78-5.38) K/mm3 Lymph # (Auto) 1.06 L (1.32-3.57) K/mm3 Yancey # (Auto) 0.56 (0.30-0.82) K/mm3 Eos # (Auto) 0.00 L (0.04-0.54) K/mm3 Baso # (Auto) 0.02 (0.01-0.08) K/mm3 Manual Slide Review Normal smear D-Dimer, Quantitative 1.76 H (0.19-0.50) mg/L VBG pH (7.30-7.40) VBG pCO2 (41-51) mmHg VBG pO2 (40-80) mmHG VBG HCO3 (22-26) meq/L VBG O2 Saturation VBG Base Excess (-4.0-2.0) O2 Delivery Device Oxygen Flow Rate Sodium (136-145) mEq/L Potassium (3.5-5.1) mEq/L Chloride (98-107) mEq/L Carbon Dioxide (21-32) mEq/L Anion Gap (5-15) BUN (7-18) mg/dL Creatinine (0.7-1.3) mg/dL Est Cr Clr Drug Dosing mL/min Estimated GFR (MDRD) (>60) mL/min BUN/Creatinine Ratio (14-18) Glucose (70-99) mg/dL Lactic Acid (0.4-2.0) mmol/L Calcium (8.5-10.1) mg/dL Phosphorus (2.6-4.7) mg/dL Magnesium (1.8-2.4) mg/dL Total Bilirubin 0.7 (0.2-1.0) mg/dL Direct Bilirubin 0.30 H (0.0-0.2) mg/dl Indirect Bilirubin 0.40 AST 75 H (15-37) U/L ALT 57 (16-63) U/L Alkaline Phosphatase 81 (46-116) U/L Troponin I (0.00-0.056) ng/mL C-Reactive Protein (<1.0) mg/dL NT-Pro-B Natriuret Pep (0-125) pg/mL Total Protein 7.5 (6.4-8.2) g/dl Albumin 3.2 L (3.4-5.0) g/dl Globulin 4.3 gm/dL Albumin/Globulin Ratio 0.7 L (1-2) 05/24/21 Range/Units 05:26 WBC (4.23-9.07) K/mm3 RBC (4.63-6.08) M/mm3 Hgb (13.7-17.5) gm/dl Hct (40.1-51.0) % MCV (79.0-92.2) fl MCH (25.7-32.2) pg MCHC (32.2-35.5) g/dl RDW Std Deviation (35.1-43.9) fL Plt Count (163-337) K/mm3 MPV (9.4-12.3) fl Neut % (Auto) (34.0-67.9) % Lymph % (Auto) (21.8-53.1) % Yancey % (Auto) (5.3-12.2) % Eos % (Auto) (0.8-7.0) Baso % (Auto) (0.1-1.2) % Neut # (Auto) (1.78-5.38) K/mm3 Lymph # (Auto) (1.32-3.57) K/mm3 [place]y # (Auto) (0.30-0.82) K/mm3 Eos # (Auto) (0.04-0.54) K/mm3 Baso # (Auto) (0.01-0.08) K/mm3 Manual Slide Review D-Dimer, Quantitative (0.19-0.50) mg/L VBG pH (7.30-7.40) VBG pCO2 (41-51) mmHg VBG pO2 (40-80) mmHG VBG HCO3 (22-26) meq/L VBG O2 Saturation VBG Base Excess (-4.0-2.0) O2 Delivery Device Oxygen Flow Rate Sodium 139 (136-145) mEq/L Potassium 4.1 (3.5-5.1) mEq/L Chloride 101 (98-107) mEq/L Carbon Dioxide 29 (21-32) mEq/L Anion Gap 13.1 (5-15) BUN 19 H (7-18) mg/dL Creatinine 1.1 (0.7-1.3) mg/dL Est Cr Clr Drug Dosing 85.21 mL/min Estimated GFR (MDRD) > 60 (>60) mL/min BUN/Creatinine Ratio 17.3 (14-18) Glucose 106 H (70-99) mg/dL Lactic Acid (0.4-2.0) mmol/L Calcium 8.4 L (8.5-10.1) mg/dL Phosphorus 4.8 H (2.6-4.7) mg/dL Magnesium 2.5 H (1.8-2.4) mg/dL Total Bilirubin 0.7 (0.2-1.0) mg/dL Direct Bilirubin (0.0-0.2) mg/dl Indirect Bilirubin AST 77 H (15-37) U/L ALT 58 (16-63) U/L Alkaline Phosphatase 80 (46-116) U/L Troponin I (0.00-0.056) ng/mL C-Reactive Protein 13.6 H* (<1.0) mg/dL NT-Pro-B Natriuret Pep (0-125) pg/mL Total Protein 7.1 (6.4-8.2) g/dl Albumin 2.9 L (3.4-5.0) g/dl Globulin 4.2 gm/dL Albumin/Globulin Ratio 0.7 L (1-2) Result Diagrams: 05/24/21 05:26 05/24/21 05:26 Sepsis Event Note - Evaluation Sepsis Screening Result: No Definite Risk - Focused Exam Vital Signs: Vital Signs Temp Resp BP Pulse Ox Pulse Ox 05/24/21 06:00 93 L 05/24/21 05:02 89 L 05/24/21 04:57 87 L 05/24/21 04:00 97.2 F 24 H 127/62 88 L 05/24/21 02:01 91 L 05/24/21 01:00 95 05/24/21 00:31 94 L 05/24/21 00:00 97.5 F 20 127/62 92 L 05/23/21 23:00 91 L 05/23/21 22:00 90 L 05/23/21 20:28 88 L 05/23/21 20:00 98.5 F 24 H 108/57 L 86 L - Problem List Review Problem List Initiated/Reviewed/Updated: Yes - Plan Plan:: 26-year-old morbidly obese male admitted for respiratory failure secondary to COVID-19 pneumonia. COVID-19 pneumonia Respiratory failure * Presented to the [facility] with oxygen saturations in the 60s * Placed on high flow nasal cannula in the emergency department * CTA of the chest revealed Covid pneumonia but no obvious PE * CRP 10.6, and WBC 10.62 * Given remdesivir and dexamethasone in the emergency department * Unvaccinated against Covid 05/24 wbc increase to 11, likely due to dex, left shift, with a mild increase in ddimer from 1.2 to 1.7. , phos increased, and will add mucinex and mucomyst x 1 due to sputum is so thick. cont in icu, RT, acapella, IS, high flow cont and try to wean but we are having difficulty with maining above 84 during exam. Cont rem desivir and dex. Actemra started Fatty liver * Mild elevation in AST with normal ALT, alkaline phosphatase, and total bilirubin * Albumin slightly low at 3.1, likely secondary to COVID-19 * CT scan of the chest demonstrated fatty liver 05/24 to be address with pcp * VTE prophylaxis with Lovenox 40 mg twice daily because of his size * CODE STATUS: Full code
[2021-05-24] MEDS: Dexamethasone 4 MG Tab PO SCH (08:28)
[2021-05-24] MEDS: Enoxaparin 40 MG/0.4 ML Syringe SUBCUT SCH ×2 (08:28→20:55)
[2021-05-24] MEDS: Albuterol/Ipratropium 3.0-0.5 MG/3 ML Neb Soln NEB PRN ×3 (08:53→15:10)
[2021-05-24] MEDS ORDERED: Acetylcysteine 20% 200 MG/ML 4 ML Nebulizer Soln SDV NEB ONE (09:00)
[2021-05-24] MEDS: Calcium Carbonate 500 MG Tab.Chew PO SCH ×2 (11:39→20:56)
[2021-05-24] MEDS ORDERED: Acetylcysteine 20% 200 MG/ML 4 ML Nebulizer Soln SDV NEB SCH (15:00)
[2021-05-24] MEDS: hydrOXYzine HCl 25 MG Tab PO PRN (15:44)
[2021-05-24] MEDS: Sodium Chloride 3% Inhalation Soln 4 ML Neb NEB SCH ×2 (15:44→21:04)
[2021-05-24] MEDS: Acetylcysteine 20% 200 MG/ML 4 ML Nebulizer Soln SDV NEB SCH ×2 (16:17→21:04)
[2021-05-24] MEDS ORDERED: Furosemide 20 MG/2 ML VIAL IVPUSH ONE (17:10)
[2021-05-24] MEDS: REMDESIVIR 100 MG in Sodium Chloride 0.9% 100 ML IV SCH (17:25)
[2021-05-24] MEDS: Temazepam 15 MG Cap PO PRN (20:56)
[2021-05-24] MEDS: guaiFENesin 600 MG Tab.ER PO SCH (20:56)
[2021-05-25] MEDS: Albuterol 6.7 GM Inhaler INH PRN ×2 (01:56→14:16)
[2021-05-25] MEDS: Sodium Chloride 3% Inhalation Soln 4 ML Neb NEB SCH ×4 (02:03→22:24)
[2021-05-25] MEDS: Acetylcysteine 20% 200 MG/ML 4 ML Nebulizer Soln SDV NEB SCH ×4 (02:03→22:24)
[2021-05-25] MEDS: Acetaminophen/Codeine 300-30 MG Tab PO PRN ×2 (03:52→08:34)
[2021-05-25] MEDS: Dexamethasone 4 MG Tab PO SCH (08:33)
[2021-05-25] MEDS: guaiFENesin 600 MG Tab.ER PO SCH ×2 (08:33→21:57)
[2021-05-25] MEDS: Benzonatate 100 MG Cap PO PRN (08:33)
[2021-05-25] MEDS: Calcium Carbonate 500 MG Tab.Chew PO SCH ×2 (08:33→21:56)
[2021-05-25] MEDS: Enoxaparin 40 MG/0.4 ML Syringe SUBCUT SCH ×2 (08:34→21:54)
--- NOTE | 2021-05-25 08:58 | PCM.PN ---
- General Info Date of Service: 05/25/21 Admission Dx/Problem (Free Text): Admission Diagnosis/Problem Admission Diagnosis/Problem Hypoxia/covid pneumonia Subjective Update: Patient states he si feeling better. he states he feels it is now looser in his lungs. he understands his saturation are still low but he agrees to keep working with us to prevent getting intubated. Functional Status: Reports: Pain Controlled - Review of Systems General: Reports: Weakness, Fatigue, Malaise HEENT: Reports: No Symptoms Pulmonary: Reports: Shortness of Breath, Cough, Sputum, Wheezing Cardiovascular: Reports: Dyspnea on Exertion, PND Gastrointestinal: Reports: No Symptoms Skin: Reports: No Symptoms Neurological: Reports: No Symptoms - Patient Data Vitals - Most Recent: Last Vital Signs Temp 98 F 05/25/21 03:55 Pulse 76 05/24/21 16:00 Resp 29 H 05/25/21 03:55 BP 109/45 L 05/25/21 03:55 Pulse Ox 89 L 05/25/21 06:00 Weight - Most Recent: 415 lb I&O - Last 24 Hours: Intake & Output 05/24/21 05/25/21 05/25/21 22:59 06:59 14:59 Intake Total 1620 800 Output Total 370 450 Balance 1250 350 Lab Results Last 24 Hours: Laboratory Results - last 24 hr 05/23/21 05/25/21 05/25/21 Range/Units 10:10 05:11 05:46 WBC (4.23-9.07) K/mm3 RBC (4.63-6.08) M/mm3 Hgb (13.7-17.5) gm/dl Hct (40.1-51.0) % MCV (79.0-92.2) fl MCH (25.7-32.2) pg MCHC (32.2-35.5) g/dl RDW Std Deviation (35.1-43.9) fL Plt Count (163-337) K/mm3 MPV (9.4-12.3) fl Sodium 139 (136-145) mEq/L Potassium 3.9 (3.5-5.1) mEq/L Chloride 102 (98-107) mEq/L Carbon Dioxide 29 (21-32) mEq/L Anion Gap 11.9 (5-15) BUN 26 H (7-18) mg/dL Creatinine 1.0 (0.7-1.3) mg/dL Est Cr Clr Drug Dosing 93.73 mL/min Estimated GFR (MDRD) > 60 (>60) mL/min BUN/Creatinine Ratio 26.0 H (14-18) Glucose 102 H (70-99) mg/dL Calcium 8.4 L (8.5-10.1) mg/dL C-Reactive Protein 9.8 H* (<1.0) mg/dL Procalcitonin 0.31 H ng/mL 05/25/21 Range/Units 05:46 WBC 7.69 (4.23-9.07) K/mm3 RBC 5.02 (4.63-6.08) M/mm3 Hgb 13.4 L (13.7-17.5) gm/dl Hct 41.4 (40.1-51.0) % MCV 82.5 (79.0-92.2) fl MCH 26.7 (25.7-32.2) pg MCHC 32.4 (32.2-35.5) g/dl RDW Std Deviation 46.1 H (35.1-43.9) fL Plt Count 215 (163-337) K/mm3 MPV 9.5 (9.4-12.3) fl Sodium (136-145) mEq/L Potassium (3.5-5.1) mEq/L Chloride (98-107) mEq/L Carbon Dioxide (21-32) mEq/L Anion Gap (5-15) BUN (7-18) mg/dL Creatinine (0.7-1.3) mg/dL Est Cr Clr Drug Dosing mL/min Estimated GFR (MDRD) (>60) mL/min BUN/Creatinine Ratio (14-18) Glucose (70-99) mg/dL Calcium (8.5-10.1) mg/dL C-Reactive Protein (<1.0) mg/dL Procalcitonin ng/mL Med Orders - Current: Current Medications Acetaminophen (Acetaminophen 325 Mg Tab) 650 mg PO Q4H PRN PRN Reason: Pain (Mild 1-3)/fever Acetaminophen/Codeine Phosphate (Acetaminophen/Codeine 300-30 Mg Tab) 2 tab PO Q4H PRN PRN Reason: Cough Last Admin: 05/25/21 08:34 Dose: 2 tab Documented by: Acetylcysteine (Acetylcysteine 20% 200 Mg/Ml 4 Ml Nebulizer Soln Sdv) 600 mg NEB Q6H [facility] Last Admin: 05/25/21 02:03 Dose: 600 mg Documented by: Albuterol (Albuterol 6.7 Gm Inhaler) 0 gm INH Q4H PRN PRN Reason: Shortness of Breath Last Admin: 05/25/21 01:56 Dose: 2 inhalation Documented by: Albuterol/Ipratropium (Albuterol/Ipratropium 3.0-0.5 Mg/3 Ml Neb Soln) 3 ml NEB Q4H PRN PRN Reason: Shortness Of Breath/wheezing Last Admin: 05/24/21 15:10 Dose: 3 ml Documented by: Benzonatate (Benzonatate 100 Mg Cap) 200 mg PO TID PRN PRN Reason: Cough Last Admin: 05/25/21 08:33 Dose: 200 mg Documented by: Calcium Carbonate/Glycine (Calcium Carbonate 500 Mg Tab.Chew) 500 mg PO BID [facility] Last Admin: 05/25/21 08:33 Dose: 500 mg Documented by: Dexamethasone (Dexamethasone 4 Mg Tab) 6 mg PO DAILY [facility] Stop: 06/01/21 09:01 Last Admin: 05/25/21 08:33 Dose: 6 mg Documented by: Enoxaparin Sodium (Enoxaparin 40 Mg/0.4 Ml Syringe) 40 mg SUBCUT BID [facility] Last Admin: 05/25/21 08:34 Dose: 40 mg Documented by: Guaifenesin (Guaifenesin 600 Mg Tab.Er) 600 mg PO BID [facility] Last Admin: 05/25/21 08:33 Dose: 600 mg Documented by: Hydroxyzine HCl (Hydroxyzine Hcl 25 Mg Tab) 25 mg PO Q6H PRN PRN Reason: Anxiety Last Admin: 05/24/21 15:44 Dose: 25 mg Documented by: Remdesivir 100 mg/ Sodium (Chloride) 100 mls @ 100 mls/hr IV Q24H [facility] Stop: 05/27/21 18:59 Last Admin: 05/24/21 17:25 Dose: 100 mls/hr Documented by: Ondansetron HCl (Ondansetron 4 Mg/2 Ml Sdv) 4 mg IV Q6H PRN PRN Reason: Nausea/Vomiting Last Admin: 05/24/21 16:15 Dose: 4 mg Documented by: Sodium Chloride (Sodium Chloride 0.9% 10 Ml Syringe) 10 ml FLUSH ASDIRECTED PRN PRN Reason: Keep Vein Open Last Admin: 05/23/21 10:20 Dose: 10 ml Documented by: Sodium Chloride (Sodium Chloride 3% Inhalation Soln 4 Ml Neb) 3 ml NEB Q6HRRT [facility] Last Admin: 05/25/21 02:03 Dose: 3 ml Documented by: Temazepam (Temazepam 15 Mg Cap) 15 mg PO BEDTIME PRN PRN Reason: Insomnia Last Admin: 05/24/21 20:56 Dose: 15 mg Documented by: Discontinued Medications Acetylcysteine (Acetylcysteine 20% 200 Mg/Ml 4 Ml Nebulizer Soln Sdv) 600 mg NEB ONETIME ONE Stop: 05/24/21 09:01 Last Admin: 05/24/21 08:48 Dose: 600 mg Documented by: Acetylcysteine (Acetylcysteine 20% 200 Mg/Ml 4 Ml Nebulizer Soln Sdv) 600 mg NEB TID [facility] Last Admin: 05/24/21 15:03 Dose: 600 mg Documented by: Dexamethasone (Dexamethasone 4 Mg/Ml Sdv) 6 mg IVPUSH ONETIME ONE Stop: 05/23/21 12:50 Last Admin: 05/23/21 17:56 Dose: 6 mg Documented by: Dexamethasone (Dexamethasone 10 Mg/Ml Sdv) Confirm Administered Dose 10 mg .ROUTE .STK-MED ONE Stop: 05/23/21 16:24 Last Admin: 05/23/21 17:55 Dose: Not Given Documented by: Furosemide (Furosemide 20 Mg/2 Ml Vial) 20 mg IVPUSH ONETIME ONE Stop: 05/24/21 17:11 Last Admin: 05/24/21 17:25 Dose: 20 mg Documented by: Remdesivir 200 mg/ Sodium (Chloride) 250 mls @ 250 mls/hr IV ONETIME ONE Stop: 05/23/21 12:49 Last Admin: 05/23/21 17:51 Dose: 250 mls/hr Documented by: Remdesivir (Remdesivir) Confirm Administered Dose 100 mls @ as directed .ROUTE .STK-MED ONE Stop: 05/23/21 16:24 Last Admin: 05/23/21 18:10 Dose: Not Given Documented by: Sodium Chloride (Normal Saline) Confirm Administered Dose 250 mls @ as directed .ROUTE .STK-MED ONE Stop: 05/23/21 16:26 Last Admin: 05/23/21 18:13 Dose: Not Given Documented by: Remdesivir (Remdesivir) Confirm Administered Dose 100 mls @ as directed .ROUTE .STK-MED ONE Stop: 05/23/21 16:31 Last Admin: 05/23/21 18:13 Dose: Not Given Documented by: Tocilizumab 800 mg/ Sodium (Chloride) 100 mls @ 100 mls/hr IV ONETIME ONE Stop: 05/24/21 08:59 Last Admin: 05/24/21 09:38 Dose: 100 mls/hr Documented by: - Exam Quality Assessment: Supplemental Oxygen (bipap ) Urinary Catheter Total Time: 0Days 11Hours General: Alert, Oriented HEENT: Pupils Equal, Pupils Reactive, EOMI Neck: Supple Lungs: Decreased Breath Sounds, Other (course breath sounds bilateral lower lobes) Extremities: Normal Inspection, Normal Range of Motion Peripheral Pulses: 2+: Dorsalis Pedis (L), Dorsalis Pedis (R) Skin: Warm, Dry Wound/Incisions: Healing Well Neurological: No New Focal Deficit Psy/Mental Status: Alert, Normal Affect, Normal Mood - Patient Data Lab Results Last 24 hrs: Laboratory Results - last 24 hr 05/23/21 05/25/21 05/25/21 Range/Units 10:10 05:11 05:46 WBC (4.23-9.07) K/mm3 RBC (4.63-6.08) M/mm3 Hgb (13.7-17.5) gm/dl Hct (40.1-51.0) % MCV (79.0-92.2) fl MCH (25.7-32.2) pg MCHC (32.2-35.5) g/dl RDW Std Deviation (35.1-43.9) fL Plt Count (163-337) K/mm3 MPV (9.4-12.3) fl Sodium 139 (136-145) mEq/L Potassium 3.9 (3.5-5.1) mEq/L Chloride 102 (98-107) mEq/L Carbon Dioxide 29 (21-32) mEq/L Anion Gap 11.9 (5-15) BUN 26 H (7-18) mg/dL Creatinine 1.0 (0.7-1.3) mg/dL Est Cr Clr Drug Dosing 93.73 mL/min Estimated GFR (MDRD) > 60 (>60) mL/min BUN/Creatinine Ratio 26.0 H (14-18) Glucose 102 H (70-99) mg/dL Calcium 8.4 L (8.5-10.1) mg/dL C-Reactive Protein 9.8 H* (<1.0) mg/dL Procalcitonin 0.31 H ng/mL 05/25/21 Range/Units 05:46 WBC 7.69 (4.23-9.07) K/mm3 RBC 5.02 (4.63-6.08) M/mm3 Hgb 13.4 L (13.7-17.5) gm/dl Hct 41.4 (40.1-51.0) % MCV 82.5 (79.0-92.2) fl MCH 26.7 (25.7-32.2) pg MCHC 32.4 (32.2-35.5) g/dl RDW Std Deviation 46.1 H (35.1-43.9) fL Plt Count 215 (163-337) K/mm3 MPV 9.5 (9.4-12.3) fl Sodium (136-145) mEq/L Potassium (3.5-5.1) mEq/L Chloride (98-107) mEq/L Carbon Dioxide (21-32) mEq/L Anion Gap (5-15) BUN (7-18) mg/dL Creatinine (0.7-1.3) mg/dL Est Cr Clr Drug Dosing mL/min Estimated GFR (MDRD) (>60) mL/min BUN/Creatinine Ratio (14-18) Glucose (70-99) mg/dL Calcium (8.5-10.1) mg/dL C-Reactive Protein (<1.0) mg/dL Procalcitonin ng/mL Result Diagrams: 05/25/21 05:46 05/25/21 05:46 Sepsis Event Note - Evaluation Sepsis Screening Result: Possible Sepsis Risk - Focused Exam Vital Signs: Vital Signs Temp Resp BP Pulse Ox Pulse Ox 05/25/21 06:00 89 L 05/25/21 05:28 91 L 05/25/21 05:00 87 L 05/25/21 03:55 98 F 29 H 109/45 L 86 L 05/25/21 03:00 85 L 05/25/21 02:00 86 L 05/25/21 01:58 87 L 05/25/21 00:15 89 L 05/25/21 00:00 97.8 F 30 H 101/44 L 86 L 05/24/21 21:05 85 L 05/24/21 21:00 87 L - Problem List Review Problem List Initiated/Reviewed/Updated: Yes - My Orders Last 24 Hours: My Active Orders 05/24/21 10:45 Calcium Carbonate [Tums] 500 mg PO BID 05/24/21 15:00 Acetylcysteine [Mucomyst 20%] 600 mg NEB Q6H Sodium Chloride 3% 3 ml NEB Q6HRRT 05/24/21 15:33 hydrOXYzine HCL [Atarax] 25 mg PO Q6H PRN 05/24/21 15:50 RT BiPAP/CPAP [RC] ASDIRECTED 05/24/21 16:59 Urinary Catheter Assessment [RC] Q4HR 05/24/21 17:00 Insert Maldonado Catheter [Insert Urinary Catheter] [OM.PC] Q24H 05/24/21 21:00 guaiFENesin [Mucinex] 600 mg PO BID - Plan Plan:: 26-year-old morbidly obese male admitted for respiratory failure secondary to COVID-19 pneumonia. COVID-19 pneumonia Respiratory failure * Presented to the [place] walk-in clinic with oxygen saturations in the 60s * Placed on high flow nasal cannula in the emergency department * CTA of the chest revealed Covid pneumonia but no obvious PE * CRP 10.6, and WBC 10.62 * Given remdesivir and dexamethasone in the emergency department * Unvaccinated against Covid 05/24 wbc increase to 11, likely due to dex, left shift, with a mild increase in ddimer from 1.2 to 1.7. , phos increased, and will add mucinex and mucomyst x 1 due to sputum is so thick. cont in icu, RT, acapella, IS, high flow cont and try to wean but we are having difficulty with maining above 84 during exam. Cont remdesivir and dex. Actemra started 05/25/21 mucous plugging and worsening yesterday afternoon. Mucomyst and hypertonic saline given and one time dose of lasix 20 iv. he improved and was placed on bipap and slept overnight but did desaturate overnight but increased with arousal. Today he wants to sit up and wants to ty to go with out bipap and do highflow. he states things feel like there are loose and feel like he can cough things up today Fatty liver * Mild elevation in AST with normal ALT, alkaline phosphatase, and total bilirubin * Albumin slightly low at 3.1, likely secondary to COVID-19 * CT scan of the chest demonstrated fatty liver 05/24 to be address with pcp * VTE prophylaxis with Lovenox 40 mg twice daily because of his size * CODE STATUS: Full code * Time 36 min
[2021-05-25] MEDS: Albuterol/Ipratropium 3.0-0.5 MG/3 ML Neb Soln NEB PRN ×3 (09:08→22:24)
[2021-05-25] MEDS: REMDESIVIR 100 MG in Sodium Chloride 0.9% 100 ML IV SCH (17:49)
[2021-05-25] MEDS ORDERED: Sodium Chloride 0.9% 500 ML IV ONE (19:15)
[2021-05-25] MEDS: Temazepam 15 MG Cap PO PRN (23:13)
[2021-05-26] MEDS: Sodium Chloride 3% Inhalation Soln 4 ML Neb NEB SCH ×3 (05:38→14:22)
[2021-05-26] MEDS: Acetylcysteine 20% 200 MG/ML 4 ML Nebulizer Soln SDV NEB SCH ×3 (05:38→14:22)
--- NOTE | 2021-05-26 07:49 | PCM.PN ---
- General Info Date of Service: 05/26/21 Admission Dx/Problem (Free Text): Admission Diagnosis/Problem Admission Diagnosis/Problem Hypoxia/covid pneumonia Subjective Update: Patient states he si feeling better.But still requiring fio2 100% Functional Status: Reports: Pain Controlled - Patient Data Vitals - Most Recent: Last Vital Signs Temp 97.2 F 05/26/21 04:00 Pulse 59 L 05/26/21 04:00 Resp 26 H 05/26/21 00:10 BP 118/67 05/26/21 04:00 Pulse Ox 89 L 05/26/21 04:00 Weight - Most Recent: 419 lb 4.8 oz I&O - Last 24 Hours: Intake & Output 05/25/21 05/26/21 05/26/21 22:59 06:59 14:59 Intake Total 880 100 Output Total 310 420 Balance 570 -320 Med Orders - Current: Current Medications Acetaminophen (Acetaminophen 325 Mg Tab) 650 mg PO Q4H PRN PRN Reason: Pain (Mild 1-3)/fever Acetaminophen/Codeine Phosphate (Acetaminophen/Codeine 300-30 Mg Tab) 2 tab PO Q4H PRN PRN Reason: Cough Last Admin: 05/25/21 08:34 Dose: 2 tab Documented by: Acetylcysteine (Acetylcysteine 20% 200 Mg/Ml 4 Ml Nebulizer Soln Sdv) 600 mg NEB Q6H [facility] Last Admin: 05/26/21 05:38 Dose: Not Given Documented by: Albuterol (Albuterol 6.7 Gm Inhaler) 0 gm INH Q4H PRN PRN Reason: Shortness of Breath Last Admin: 05/25/21 14:16 Dose: 2 inhalation Documented by: Albuterol/Ipratropium (Albuterol/Ipratropium 3.0-0.5 Mg/3 Ml Neb Soln) 3 ml NEB Q4H PRN PRN Reason: Shortness Of Breath/wheezing Last Admin: 05/25/21 22:24 Dose: 3 ml Documented by: Benzonatate (Benzonatate 100 Mg Cap) 200 mg PO TID PRN PRN Reason: Cough Last Admin: 05/25/21 08:33 Dose: 200 mg Documented by: Calcium Carbonate/Glycine (Calcium Carbonate 500 Mg Tab.Chew) 500 mg PO BID [facility] Last Admin: 05/25/21 21:56 Dose: 500 mg Documented by: Dexamethasone (Dexamethasone 4 Mg Tab) 6 mg PO DAILY [facility] Stop: 06/01/21 09:01 Last Admin: 05/25/21 08:33 Dose: 6 mg Documented by: Enoxaparin Sodium (Enoxaparin 40 Mg/0.4 Ml Syringe) 40 mg SUBCUT BID [facility] Last Admin: 05/25/21 21:54 Dose: 40 mg Documented by: Guaifenesin (Guaifenesin 600 Mg Tab.Er) 600 mg PO BID [facility] Last Admin: 05/25/21 21:57 Dose: 600 mg Documented by: Hydroxyzine HCl (Hydroxyzine Hcl 25 Mg Tab) 25 mg PO Q6H PRN PRN Reason: Anxiety Last Admin: 05/24/21 15:44 Dose: 25 mg Documented by: Remdesivir 100 mg/ Sodium (Chloride) 100 mls @ 100 mls/hr IV Q24H [facility] Stop: 05/27/21 18:59 Last Admin: 05/25/21 17:49 Dose: 100 mls/hr Documented by: Ondansetron HCl (Ondansetron 4 Mg/2 Ml Sdv) 4 mg IV Q6H PRN PRN Reason: Nausea/Vomiting Last Admin: 05/24/21 16:15 Dose: 4 mg Documented by: Sodium Chloride (Sodium Chloride 0.9% 10 Ml Syringe) 10 ml FLUSH ASDIRECTED PRN PRN Reason: Keep Vein Open Last Admin: 05/23/21 10:20 Dose: 10 ml Documented by: Sodium Chloride (Sodium Chloride 3% Inhalation Soln 4 Ml Neb) 3 ml NEB Q6HRRT [facility] Last Admin: 05/26/21 05:38 Dose: Not Given Documented by: Temazepam (Temazepam 15 Mg Cap) 15 mg PO BEDTIME PRN PRN Reason: Insomnia Last Admin: 05/25/21 23:13 Dose: 15 mg Documented by: Discontinued Medications Acetylcysteine (Acetylcysteine 20% 200 Mg/Ml 4 Ml Nebulizer Soln Sdv) 600 mg NEB ONETIME ONE Stop: 05/24/21 09:01 Last Admin: 05/24/21 08:48 Dose: 600 mg Documented by: Acetylcysteine (Acetylcysteine 20% 200 Mg/Ml 4 Ml Nebulizer Soln Sdv) 600 mg NEB TID [facility] Last Admin: 05/24/21 15:03 Dose: 600 mg Documented by: Dexamethasone (Dexamethasone 4 Mg/Ml Sdv) 6 mg IVPUSH ONETIME ONE Stop: 05/23/21 12:50 Last Admin: 05/23/21 17:56 Dose: 6 mg Documented by: Dexamethasone (Dexamethasone 10 Mg/Ml Sdv) Confirm Administered Dose 10 mg .ROUTE .STK-MED ONE Stop: 05/23/21 16:24 Last Admin: 05/23/21 17:55 Dose: Not Given Documented by: Furosemide (Furosemide 20 Mg/2 Ml Vial) 20 mg IVPUSH ONETIME ONE Stop: 05/24/21 17:11 Last Admin: 05/24/21 17:25 Dose: 20 mg Documented by: Remdesivir 200 mg/ Sodium (Chloride) 250 mls @ 250 mls/hr IV ONETIME ONE Stop: 05/23/21 12:49 Last Admin: 05/23/21 17:51 Dose: 250 mls/hr Documented by: Remdesivir (Remdesivir) Confirm Administered Dose 100 mls @ as directed .ROUTE .STK-MED ONE Stop: 05/23/21 16:24 Last Admin: 05/23/21 18:10 Dose: Not Given Documented by: Sodium Chloride (Normal Saline) Confirm Administered Dose 250 mls @ as directed .ROUTE .STK-MED ONE Stop: 05/23/21 16:26 Last Admin: 05/23/21 18:13 Dose: Not Given Documented by: Remdesivir (Remdesivir) Confirm Administered Dose 100 mls @ as directed .ROUTE .STK-MED ONE Stop: 05/23/21 16:31 Last Admin: 05/23/21 18:13 Dose: Not Given Documented by: Tocilizumab 800 mg/ Sodium (Chloride) 100 mls @ 100 mls/hr IV ONETIME ONE Stop: 05/24/21 08:59 Last Admin: 05/24/21 09:38 Dose: 100 mls/hr Documented by: Sodium Chloride (Normal Saline) 500 mls @ 999 mls/hr IV .BOLUS ONE Stop: 05/25/21 19:45 Last Admin: 05/25/21 18:54 Dose: 999 mls/hr Documented by: - Exam Quality Assessment: Supplemental Oxygen Urinary Catheter Total Time: 1Days 13Hours General: Alert, Oriented, Cooperative, Mild Distress HEENT: Pupils Equal, Pupils Reactive Neck: Supple Lungs: Decreased Breath Sounds, Other (soft velcrow expiratory bs) Cardiovascular: Regular Rate, Regular Rhythm GI/Abdominal Exam: Normal Bowel Sounds, Soft, Non-Tender Extremities: Normal Inspection, Normal Range of Motion Peripheral Pulses: 2+: Dorsalis Pedis (L), Dorsalis Pedis (R) Skin: Warm Wound/Incisions: Healing Well Neurological: No New Focal Deficit Psy/Mental Status: Alert, Normal Affect, Normal Mood - Patient Data Result Diagrams: 05/25/21 05:46 05/25/21 05:46 Sepsis Event Note - Evaluation Sepsis Screening Result: Possible Sepsis Risk - Focused Exam Vital Signs: Vital Signs Temp Pulse Resp BP Pulse Ox Pulse Ox 05/26/21 04:00 97.2 F 59 L 118/67 89 L 05/26/21 03:20 94 L 05/26/21 00:10 96.7 F L 54 L 26 H 115/69 85 L 05/25/21 22:25 88 L 05/25/21 20:00 96.7 F L 55 L 30 H 116/57 L 93 L - Problem List Review Problem List Initiated/Reviewed/Updated: Yes - My Orders Last 24 Hours: My Active Orders 05/26/21 07:47 ABG [RT Arterial Blood Gases, ABG] [RC] Click to Edit - Plan Plan:: 26-year-old morbidly obese male admitted for respiratory failure secondary to COVID-19 pneumonia. COVID-19 pneumonia Respiratory failure * Presented to the [place] walk-in clinic with oxygen saturations in the 60s * Placed on high flow nasal cannula in the emergency department * CTA of the chest revealed Covid pneumonia but no obvious PE * CRP 10.6, and WBC 10.62 * Given remdesivir and dexamethasone in the emergency department * Unvaccinated against Covid 05/24 wbc increase to 11, likely due to dex, left shift, with a mild increase in ddimer from 1.2 to 1.7. , phos increased, and will add mucinex and mucomyst x 1 due to sputum is so thick. cont in icu, RT, acapella, IS, high flow cont and try to wean but we are having difficulty with maining above 84 during exam. Cont remdesivir and dex. Actemra started 05/25/21 mucous plugging and worsening yesterday afternoon. Mucomyst and hypertonic saline given and one time dose of lasix 20 iv. he improved and was placed on bipap and slept overnight but did desaturate overnight but increased with arousal. Today he wants to sit up and wants to ty to go with out bipap and do highflow. he states things feel like there are loose and feel like he can cough things up today 05/26/21 being difficulty getting back to high flow. Patient is requiring 100% FiO2, BiPAP, , cooperating and proning, continues on remdesivir and Decadron, continues to do I-S, CTA was negative, and his weight is down from 4 25-4 16. Changes in medical treatment at this time. Most likely his body habitus is what is his largest contributor to not recovering quickly. Fatty liver * Mild elevation in AST with normal ALT, alkaline phosphatase, and total bilirubin * Albumin slightly low at 3.1, likely secondary to COVID-19 * CT scan of the chest demonstrated fatty liver 05/24 to be address with pcp * VTE prophylaxis with Lovenox 40 mg twice daily because of his size * CODE STATUS: Full code * Time 36 min
[2021-05-26] MEDS: Albuterol/Ipratropium 3.0-0.5 MG/3 ML Neb Soln NEB PRN ×3 (08:10→20:09)
[2021-05-26] MEDS: guaiFENesin 600 MG Tab.ER PO SCH ×2 (09:37→20:45)
[2021-05-26] MEDS: Benzonatate 100 MG Cap PO PRN ×2 (09:37→13:19)
[2021-05-26] MEDS: Calcium Carbonate 500 MG Tab.Chew PO SCH ×2 (09:37→20:45)
[2021-05-26] MEDS: Dexamethasone 4 MG Tab PO SCH (09:37)
[2021-05-26] MEDS: Enoxaparin 40 MG/0.4 ML Syringe SUBCUT SCH ×2 (09:37→20:44)
[2021-05-26] MEDS: Albuterol 6.7 GM Inhaler INH PRN (11:58)
[2021-05-26] MEDS: REMDESIVIR 100 MG in Sodium Chloride 0.9% 100 ML IV SCH (17:32)
[2021-05-26] MEDS: Temazepam 15 MG Cap PO PRN (20:45)
[2021-05-26] MEDS: hydrOXYzine HCl 25 MG Tab PO PRN (23:15)
[2021-05-27] MEDS: Albuterol/Ipratropium 3.0-0.5 MG/3 ML Neb Soln NEB PRN ×4 (04:29→21:15)
[2021-05-27] MEDS: Calcium Carbonate 500 MG Tab.Chew PO SCH ×2 (08:18→21:07)
[2021-05-27] MEDS: Dexamethasone 4 MG Tab PO SCH (08:18)
[2021-05-27] MEDS: guaiFENesin 600 MG Tab.ER PO SCH ×2 (08:18→21:07)
[2021-05-27] MEDS: Enoxaparin 40 MG/0.4 ML Syringe SUBCUT SCH ×2 (08:19→21:07)
--- NOTE | 2021-05-27 09:47 | PCM.PN ---
- General Info Date of Service: 05/27/21 Admission Dx/Problem (Free Text): Admission Diagnosis/Problem Admission Diagnosis/Problem Hypoxia/covid pneumonia Subjective Update: 26-year-old with respiratory failure secondary to COVID-19 pneumonia. He is making small improvement with FiO2 down to 90%, but still on BiPAP 25/15. Patient was eating breakfast this morning, and when mask was taken off his oxygen saturations were dropped down into the 70s. Otherwise he states he is feeling marginally better. Functional Status: Reports: Pain Controlled - Review of Systems General: Reports: No Symptoms HEENT: Reports: No Symptoms Pulmonary: Reports: Shortness of Breath Cardiovascular: Reports: No Symptoms Gastrointestinal: Reports: No Symptoms Musculoskeletal: Reports: No Symptoms Neurological: Reports: No Symptoms Psychiatric: Reports: No Symptoms - Patient Data Vitals - Most Recent: Last Vital Signs Temp 96.6 F L 05/27/21 08:00 Pulse 62 05/27/21 08:00 Resp 36 H 05/27/21 08:00 BP 106/60 05/27/21 08:00 Pulse Ox 95 05/27/21 08:13 Weight - Most Recent: 416 lb 12.8 oz I&O - Last 24 Hours: Intake & Output 05/26/21 05/27/21 05/27/21 22:59 06:59 14:59 Intake Total 880 100 250 Output Total 475 400 145 Balance 405 -300 105 Lab Results Last 24 Hours: Laboratory Results - last 24 hr 05/26/21 05/27/21 05/27/21 Range/Units 14:19 06:58 06:58 WBC 9.02 (4.23-9.07) K/mm3 RBC 5.05 (4.63-6.08) M/mm3 Hgb 13.4 L (13.7-17.5) gm/dl Hct 41.4 (40.1-51.0) % MCV 82.0 (79.0-92.2) fl MCH 26.5 (25.7-32.2) pg MCHC 32.4 (32.2-35.5) g/dl RDW Std Deviation 44.6 H (35.1-43.9) fL Plt Count 287 (163-337) K/mm3 MPV 9.3 L (9.4-12.3) fl Puncture Site Rt radial ABG pH 7.42 (7.35-7.45) ABG pCO2 43.9 (35.0-45.0) mmHg ABG pO2 92.0 (80.0-100.0) mmHg ABG HCO3 28.1 H (22.0-26.0) meq/L ABG O2 Saturation 96.9 (96.0-97.0) % ABG Base Excess 3.6 H (-2-2.0) Hunter Test Positive A-a Gradient 531 mmHg O2 Delivery Device Bipap 20/15 FiO2 100.00 (21.00-100.00) % Sodium 142 (136-145) mEq/L Potassium 3.6 (3.5-5.1) mEq/L Chloride 103 (98-107) mEq/L Carbon Dioxide 30 (21-32) mEq/L Anion Gap 12.6 (5-15) BUN 30 H (7-18) mg/dL Creatinine 0.9 (0.7-1.3) mg/dL Est Cr Clr Drug Dosing 104.15 mL/min Estimated GFR (MDRD) > 60 (>60) mL/min BUN/Creatinine Ratio 33.3 H (14-18) Glucose 90 (70-99) mg/dL Calcium 8.4 L (8.5-10.1) mg/dL Med Orders - Current: Current Medications Acetaminophen (Acetaminophen 325 Mg Tab) 650 mg PO Q4H PRN PRN Reason: Pain (Mild 1-3)/fever Acetaminophen/Codeine Phosphate (Acetaminophen/Codeine 300-30 Mg Tab) 2 tab PO Q4H PRN PRN Reason: Cough Last Admin: 05/25/21 08:34 Dose: 2 tab Documented by: Albuterol (Albuterol 6.7 Gm Inhaler) 0 gm INH Q4H PRN PRN Reason: Shortness of Breath Last Admin: 05/26/21 11:58 Dose: 2 puff Documented by: Albuterol/Ipratropium (Albuterol/Ipratropium 3.0-0.5 Mg/3 Ml Neb Soln) 3 ml NEB Q4H PRN PRN Reason: Shortness Of Breath/wheezing Last Admin: 05/27/21 08:06 Dose: 3 ml Documented by: Benzonatate (Benzonatate 100 Mg Cap) 200 mg PO TID PRN PRN Reason: Cough Last Admin: 05/26/21 13:19 Dose: 200 mg Documented by: Calcium Carbonate/Glycine (Calcium Carbonate 500 Mg Tab.Chew) 500 mg PO BID [facility] Last Admin: 05/27/21 08:18 Dose: 500 mg Documented by: Dexamethasone (Dexamethasone 4 Mg Tab) 6 mg PO DAILY [facility] Stop: 06/01/21 09:01 Last Admin: 05/27/21 08:18 Dose: 6 mg Documented by: Enoxaparin Sodium (Enoxaparin 40 Mg/0.4 Ml Syringe) 40 mg SUBCUT BID [facility] Last Admin: 05/27/21 08:19 Dose: 40 mg Documented by: Guaifenesin (Guaifenesin 600 Mg Tab.Er) 600 mg PO BID [facility] Last Admin: 05/27/21 08:18 Dose: 600 mg Documented by: Hydroxyzine HCl (Hydroxyzine Hcl 25 Mg Tab) 25 mg PO Q6H PRN PRN Reason: Anxiety Last Admin: 05/26/21 23:15 Dose: 25 mg Documented by: Remdesivir 100 mg/ Sodium (Chloride) 100 mls @ 100 mls/hr IV Q24H [facility] Stop: 05/27/21 18:59 Last Admin: 05/26/21 17:32 Dose: 100 mls/hr Documented by: Ondansetron HCl (Ondansetron 4 Mg/2 Ml Sdv) 4 mg IV Q6H PRN PRN Reason: Nausea/Vomiting Last Admin: 05/24/21 16:15 Dose: 4 mg Documented by: Sodium Chloride (Sodium Chloride 0.9% 10 Ml Syringe) 10 ml FLUSH ASDIRECTED PRN PRN Reason: Keep Vein Open Last Admin: 05/23/21 10:20 Dose: 10 ml Documented by: Temazepam (Temazepam 15 Mg Cap) 15 mg PO BEDTIME PRN PRN Reason: Insomnia Last Admin: 05/26/21 20:45 Dose: 15 mg Documented by: Discontinued Medications Acetylcysteine (Acetylcysteine 20% 200 Mg/Ml 4 Ml Nebulizer Soln Sdv) 600 mg NEB ONETIME ONE Stop: 05/24/21 09:01 Last Admin: 05/24/21 08:48 Dose: 600 mg Documented by: Acetylcysteine (Acetylcysteine 20% 200 Mg/Ml 4 Ml Nebulizer Soln Sdv) 600 mg NEB TID [facility] Last Admin: 05/24/21 15:03 Dose: 600 mg Documented by: Acetylcysteine (Acetylcysteine 20% 200 Mg/Ml 4 Ml Nebulizer Soln Sdv) 600 mg NEB Q6H LIS Last Admin: 05/26/21 14:22 Dose: 600 mg Documented by: Dexamethasone (Dexamethasone 4 Mg/Ml Sdv) 6 mg IVPUSH ONETIME ONE Stop: 05/23/21 12:50 Last Admin: 05/23/21 17:56 Dose: 6 mg Documented by: Dexamethasone (Dexamethasone 10 Mg/Ml Sdv) Confirm Administered Dose 10 mg .ROUTE .STK-MED ONE Stop: 05/23/21 16:24 Last Admin: 05/23/21 17:55 Dose: Not Given Documented by: Furosemide (Furosemide 20 Mg/2 Ml Vial) 20 mg IVPUSH ONETIME ONE Stop: 05/24/21 17:11 Last Admin: 05/24/21 17:25 Dose: 20 mg Documented by: Remdesivir 200 mg/ Sodium (Chloride) 250 mls @ 250 mls/hr IV ONETIME ONE Stop: 05/23/21 12:49 Last Admin: 05/23/21 17:51 Dose: 250 mls/hr Documented by: Remdesivir (Remdesivir) Confirm Administered Dose 100 mls @ as directed .ROUTE .STK-MED ONE Stop: 05/23/21 16:24 Last Admin: 05/23/21 18:10 Dose: Not Given Documented by: Sodium Chloride (Normal Saline) Confirm Administered Dose 250 mls @ as directed .ROUTE .STK-MED ONE Stop: 05/23/21 16:26 Last Admin: 05/23/21 18:13 Dose: Not Given Documented by: Remdesivir (Remdesivir) Confirm Administered Dose 100 mls @ as directed .ROUTE .STK-MED ONE Stop: 05/23/21 16:31 Last Admin: 05/23/21 18:13 Dose: Not Given Documented by: Tocilizumab 800 mg/ Sodium (Chloride) 100 mls @ 100 mls/hr IV ONETIME ONE Stop: 05/24/21 08:59 Last Admin: 05/24/21 09:38 Dose: 100 mls/hr Documented by: Sodium Chloride (Normal Saline) 500 mls @ 999 mls/hr IV .BOLUS ONE Stop: 10/05/21 19:45 Last Admin: 05/25/21 18:54 Dose: 999 mls/hr Documented by: Sodium Chloride (Sodium Chloride 3% Inhalation Soln 4 Ml Neb) 3 ml NEB Q6HRRT LIS Last Admin: 05/26/21 14:22 Dose: 3 ml Documented by: - Exam Quality Assessment: Supplemental Oxygen (BiPAP) Urinary Catheter Total Time: 2Days 16Hours General: Alert, Oriented HEENT: Pupils Equal, Mucous Membr. Moist/[place] Lungs: Decreased Breath Sounds (Due to body habitus), Crackles. No: Normal Respiratory Effort (Increased rate) Cardiovascular: Regular Rate, Regular Rhythm GI/Abdominal Exam: Normal Bowel Sounds, Soft, Non-Tender, No Distention (Morbidly obese) Extremities: Normal Capillary Refill Skin: Warm, Dry, Intact - Patient Data Lab Results Last 24 hrs: Laboratory Results - last 24 hr 05/26/21 05/27/21 05/27/21 Range/Units 14:19 06:58 06:58 WBC 9.02 (4.23-9.07) K/mm3 RBC 5.05 (4.63-6.08) M/mm3 Hgb 13.4 L (13.7-17.5) gm/dl Hct 41.4 (40.1-51.0) % MCV 82.0 (79.0-92.2) fl MCH 26.5 (25.7-32.2) pg MCHC 32.4 (32.2-35.5) g/dl RDW Std Deviation 44.6 H (35.1-43.9) fL Plt Count 287 (163-337) K/mm3 MPV 9.3 L (9.4-12.3) fl Puncture Site Rt radial ABG pH 7.42 (7.35-7.45) ABG pCO2 43.9 (35.0-45.0) mmHg ABG pO2 92.0 (80.0-100.0) mmHg ABG HCO3 28.1 H (22.0-26.0) meq/L ABG O2 Saturation 96.9 (96.0-97.0) % ABG Base Excess 3.6 H (-2-2.0) Hunter Test Positive A-a Gradient 531 mmHg O2 Delivery Device Bipap 20/15 FiO2 100.00 (21.00-100.00) % Sodium 142 (136-145) mEq/L Potassium 3.6 (3.5-5.1) mEq/L Chloride 103 (98-107) mEq/L Carbon Dioxide 30 (21-32) mEq/L Anion Gap 12.6 (5-15) BUN 30 H (7-18) mg/dL Creatinine 0.9 (0.7-1.3) mg/dL Est Cr Clr Drug Dosing 104.15 mL/min Estimated GFR (MDRD) > 60 (>60) mL/min BUN/Creatinine Ratio 33.3 H (14-18) Glucose 90 (70-99) mg/dL Calcium 8.4 L (8.5-10.1) mg/dL Result Diagrams: 05/27/21 06:58 05/27/21 06:58 Sepsis Event Note - Evaluation Sepsis Screening Result: Possible Sepsis Risk - Focused Exam Vital Signs: Vital Signs Temp Pulse Resp BP Pulse Ox Pulse Ox 05/27/21 08:13 95 05/27/21 08:07 94 L 05/27/21 08:00 96.6 F L 62 36 H 106/60 97 05/27/21 06:12 89 L 05/27/21 04:29 88 L 05/27/21 04:00 97 F 69 37 H 109/54 L 94 L 05/27/21 01:05 97 F 49 L 25 H 112/64 89 L - Problem List & Annotations (1) Pneumonia due to COVID-19 virus SNOMED Code(s): 932900063782803828 Code(s): U07.1 - COVID-19; J12.82 - PNEUMONIA DUE TO CORONAVIRUS DISEASE 2019 Status: Acute Current Visit: Yes (2) Respiratory failure SNOMED Code(s): 463361521 Code(s): J96.90 - RESPIRATORY FAILURE, UNSP, UNSP W HYPOXIA OR HYPERCAPNIA Status: Acute Current Visit: Yes - Problem List Review Problem List Initiated/Reviewed/Updated: Yes - My Orders Last 24 Hours: My Active Orders 05/28/21 05:11 C-REACTIVE PROTEIN [CHEM] AM CBC WITH AUTO DIFF [HEME] AM CMP [COMPREHENSIVE METABOLIC PN,CMP] [CHEM] AM DD [D-DIMER QUANTITATIVE] [COAG] AM MAGNESIUM [CHEM] AM PHOSPHORUS [CHEM] AM - Plan Plan:: 26-year-old morbidly obese male admitted for respiratory failure secondary to COVID-19 pneumonia. COVID-19 pneumonia Respiratory failure * Presented to the [place] walk-in clinic with oxygen saturations in the 60s * Placed on high flow nasal cannula in the emergency department * CTA of the chest revealed Covid pneumonia but no obvious PE * CRP 10.6, and WBC 10.62 * Given remdesivir and dexamethasone in the emergency department * Received Actemra on 05/24 * Unvaccinated against Covid 05/24 wbc increase to 11, likely due to dex, left shift, with a mild increase in ddimer from 1.2 to 1.7. , phos increased, and will add mucinex and mucomyst x 1 due to sputum is so thick. cont in icu, RT, acapella, IS, high flow cont and try to wean but we are having difficulty with maining above 84 during exam. Cont remdesivir and dex. Actemra started 05/25/21 mucous plugging and worsening yesterday afternoon. Mucomyst and hypertonic saline given and one time dose of lasix 20 iv. he improved and was placed on bipap and slept overnight but did desaturate overnight but increased with arousal. Today he wants to sit up and wants to ty to go with out bipap and do highflow. he states things feel like there are loose and feel like he can cough things up today 05/26/21 being difficulty getting back to high flow. Patient is requiring 100% FiO2, BiPAP, , cooperating and proning, continues on remdesivir and Decadron, continues to do I-S, CTA was negative, and his weight is down from 4 25-4 16. Changes in medical treatment at this time. Most likely his body h abitus is what is his largest contributor to not recovering quickly. 05/27/2021 Patient continues to be on BiPAP, but FiO2 has decreased to 90%. Patient continues to cooperate with proning. He is on remdesivir and dexamethasone, day 5. Lab work unremarkable. Continuing on I-S. He is starting to eat a little better, and drinks the protein shakes when able. Continue to monitor. Fatty liver * Mild elevation in AST with normal ALT, alkaline phosphatase, and total biliru bin * Albumin slightly low at 3.1, likely secondary to COVID-19 * CT scan of the chest demonstrated fatty liver Pt. will address with pcp * VTE prophylaxis with Lovenox 40 mg twice daily because of his size * CODE STATUS: Full code
[2021-05-27] MEDS: Albuterol 6.7 GM Inhaler INH PRN (12:52)
[2021-05-27] MEDS: REMDESIVIR 100 MG in Sodium Chloride 0.9% 100 ML IV SCH (18:14)
[2021-05-27] MEDS: Temazepam 15 MG Cap PO PRN (21:07)
[2021-05-28] MEDS: Albuterol/Ipratropium 3.0-0.5 MG/3 ML Neb Soln NEB PRN ×2 (06:11→20:12)
[2021-05-28] MEDS: Dexamethasone 4 MG Tab PO SCH (08:08)
[2021-05-28] MEDS: guaiFENesin 600 MG Tab.ER PO SCH ×2 (08:08→20:00)
[2021-05-28] MEDS: Calcium Carbonate 500 MG Tab.Chew PO SCH ×2 (08:08→20:00)
[2021-05-28] MEDS: Enoxaparin 40 MG/0.4 ML Syringe SUBCUT SCH (08:08)
[2021-05-28] MEDS: Albuterol 6.7 GM Inhaler INH PRN (08:19)
[2021-05-28] MEDS: Apixaban 5 MG Tab PO SCH ×2 (11:18→20:00)
--- NOTE | 2021-05-28 12:41 | PCM.PN ---
- General Info Date of Service: 05/28/21 Admission Dx/Problem (Free Text): Admission Diagnosis/Problem Admission Diagnosis/Problem Hypoxia/covid pneumonia Subjective Update: 26-year-old with respiratory failure secondary to COVID-19 pneumonia. Patient was able to get a shower today. Unfortunately, this required him to go backwards on his respiratory status. He was on high flow nasal cannula, but was placed back on BiPAP - Review of Systems General: Reports: Fatigue HEENT: Reports: No Symptoms Pulmonary: Reports: Shortness of Breath, Cough Cardiovascular: Reports: No Symptoms Gastrointestinal: Reports: No Symptoms Musculoskeletal: Reports: No Symptoms - Patient Data Vitals - Most Recent: Last Vital Signs Temp 97.1 F 05/28/21 08:00 Pulse 67 05/28/21 08:00 Resp 34 H 05/28/21 08:00 BP 115/69 05/28/21 08:00 Pulse Ox 90 L 05/28/21 08:19 Weight - Most Recent: 418 lb I&O - Last 24 Hours: Intake & Output 05/27/21 05/28/21 05/28/21 22:59 06:59 14:59 Intake Total 1280 300 125 Output Total 420 375 250 Balance 860 -75 -125 Lab Results Last 24 Hours: Laboratory Results - last 24 hr 05/28/21 05/28/21 05/28/21 Range/Units 04:52 04:52 04:52 WBC 11.65 H (4.23-9.07) K/mm3 RBC 5.12 (4.63-6.08) M/mm3 Hgb 13.6 L (13.7-17.5) gm/dl Hct 42.2 (40.1-51.0) % MCV 82.4 (79.0-92.2) fl MCH 26.6 (25.7-32.2) pg MCHC 32.2 (32.2-35.5) g/dl RDW Std Deviation 44.0 H (35.1-43.9) fL Plt Count 289 (163-337) K/mm3 MPV 9.3 L (9.4-12.3) fl Neut % (Auto) 67.1 (34.0-67.9) % Lymph % (Auto) 17.6 L (21.8-53.1) % [place] % (Auto) 5.2 L (5.3-12.2) % Eos % (Auto) 0.8 (0.8-7.0) Baso % (Auto) 0.6 (0.1-1.2) % Neut # (Auto) 7.82 H (1.78-5.38) K/mm3 Lymph # (Auto) 2.05 (1.32-3.57) K/mm3 [place] # (Auto) 0.61 (0.30-0.82) K/mm3 Eos # (Auto) 0.09 (0.04-0.54) K/mm3 Baso # (Auto) 0.07 (0.01-0.08) K/mm3 Manual Slide Review Abnormal smear D-Dimer, Quantitative 3.34 H (0.19-0.50) mg/L Sodium 141 (136-145) mEq/L Potassium 3.4 L (3.5-5.1) mEq/L Chloride 101 (98-107) mEq/L Carbon Dioxide 32 (21-32) mEq/L Anion Gap 11.4 (5-15) BUN 23 H (7-18) mg/dL Creatinine 0.9 (0.7-1.3) mg/dL Est Cr Clr Drug Dosing 104.15 mL/min Estimated GFR (MDRD) > 60 (>60) mL/min BUN/Creatinine Ratio 25.6 H (14-18) Glucose 85 (70-99) mg/dL Calcium 8.4 L (8.5-10.1) mg/dL Phosphorus 4.5 (2.6-4.7) mg/dL Magnesium 2.3 (1.8-2.4) mg/dL Total Bilirubin 0.5 (0.2-1.0) mg/dL AST 71 H (15-37) U/L ALT 89 H (16-63) U/L Alkaline Phosphatase 71 (46-116) U/L C-Reactive Protein 0.7 (<1.0) mg/dL Total Protein 6.1 L (6.4-8.2) g/dl Albumin 2.9 L (3.4-5.0) g/dl Globulin 3.2 gm/dL Albumin/Globulin Ratio 0.9 L (1-2) Med Orders - Current: Current Medications Acetaminophen (Acetaminophen 325 Mg Tab) 650 mg PO Q4H PRN PRN Reason: Pain (Mild 1-3)/fever Acetaminophen/Codeine Phosphate (Acetaminophen/Codeine 300-30 Mg Tab) 2 tab PO Q4H PRN PRN Reason: Cough Last Admin: 05/25/21 08:34 Dose: 2 tab Documented by: Albuterol (Albuterol 6.7 Gm Inhaler) 0 gm INH Q4H PRN PRN Reason: Shortness of Breath Last Admin: 05/28/21 08:19 Dose: 2 puff Documented by: Albuterol/Ipratropium (Albuterol/Ipratropium 3.0-0.5 Mg/3 Ml Neb Soln) 3 ml NEB Q4H PRN PRN Reason: Shortness Of Breath/wheezing Last Admin: 05/28/21 06:11 Dose: 3 ml Documented by: Apixaban (Apixaban 5 Mg Tab) 5 mg PO BID [facility] Last Admin: 05/28/21 11:18 Dose: Not Given Documented by: Benzonatate (Benzonatate 100 Mg Cap) 200 mg PO TID PRN PRN Reason: Cough Last Admin: 05/26/21 13:19 Dose: 200 mg Documented by: Calcium Carbonate/Glycine (Calcium Carbonate 500 Mg Tab.Chew) 500 mg PO BID [facility] Last Admin: 05/28/21 08:08 Dose: 500 mg Documented by: Dexamethasone (Dexamethasone 4 Mg Tab) 6 mg PO DAILY [facility] Stop: 06/01/21 09:01 Last Admin: 05/28/21 08:08 Dose: 6 mg Documented by: Guaifenesin (Guaifenesin 600 Mg Tab.Er) 600 mg PO BID [facility] Last Admin: 05/28/21 08:08 Dose: 600 mg Documented by: Hydroxyzine HCl (Hydroxyzine Hcl 25 Mg Tab) 25 mg PO Q6H PRN PRN Reason: Anxiety Last Admin: 05/26/21 23:15 Dose: 25 mg Documented by: Ondansetron HCl (Ondansetron 4 Mg/2 Ml Sdv) 4 mg IV Q6H PRN PRN Reason: Nausea/Vomiting Last Admin: 05/24/21 16:15 Dose: 4 mg Documented by: Sodium Chloride (Sodium Chloride 0.9% 10 Ml Syringe) 10 ml FLUSH ASDIRECTED PRN PRN Reason: Keep Vein Open Last Admin: 05/23/21 10:20 Dose: 10 ml Documented by: Temazepam (Temazepam 15 Mg Cap) 15 mg PO BEDTIME PRN PRN Reason: Insomnia Last Admin: 05/27/21 21:07 Dose: 15 mg Documented by: Discontinued Medications Acetylcysteine (Acetylcysteine 20% 200 Mg/Ml 4 Ml Nebulizer Soln Sdv) 600 mg NEB ONETIME ONE Stop: 05/24/21 09:01 Last Admin: 05/24/21 08:48 Dose: 600 mg Documented by: Acetylcysteine (Acetylcysteine 20% 200 Mg/Ml 4 Ml Nebulizer Soln Sdv) 600 mg NEB TID [facility] Last Admin: 05/24/21 15:03 Dose: 600 mg Documented by: Acetylcysteine (Acetylcysteine 20% 200 Mg/Ml 4 Ml Nebulizer Soln Sdv) 600 mg NEB Q6H [facility] Last Admin: 05/26/21 14:22 Dose: 600 mg Documented by: Dexamethasone (Dexamethasone 4 Mg/Ml Sdv) 6 mg IVPUSH ONETIME ONE Stop: 05/23/21 12:50 Last Admin: 05/23/21 17:56 Dose: 6 mg Documented by: Dexamethasone (Dexamethasone 10 Mg/Ml Sdv) Confirm Administered Dose 10 mg .ROUTE .STK-MED ONE Stop: 05/23/21 16:24 Last Admin: 05/23/21 17:55 Dose: Not Given Documented by: Enoxaparin Sodium (Enoxaparin 40 Mg/0.4 Ml Syringe) 40 mg SUBCUT BID [facility] Last Admin: 05/28/21 08:08 Dose: 40 mg Documented by: Furosemide (Furosemide 20 Mg/2 Ml Vial) 20 mg IVPUSH ONETIME ONE Stop: 05/24/21 17:11 Last Admin: 05/24/21 17:25 Dose: 20 mg Documented by: Remdesivir 200 mg/ Sodium (Chloride) 250 mls @ 250 mls/hr IV ONETIME ONE Stop: 05/23/21 12:49 Last Admin: 05/23/21 17:51 Dose: 250 mls/hr Documented by: Remdesivir (Remdesivir) Confirm Administered Dose 100 mls @ as directed .ROUTE .STK-MED ONE Stop: 05/23/21 16:24 Last Admin: 05/23/21 18:10 Dose: Not Given Documented by: Sodium Chloride (Normal Saline) Confirm Administered Dose 250 mls @ as directed .ROUTE .STK-MED ONE Stop: 05/23/21 16:26 Last Admin: 05/23/21 18:13 Dose: Not Given Documented by: Remdesivir (Remdesivir) Confirm Administered Dose 100 mls @ as directed .ROUTE .STK-MED ONE Stop: 05/23/21 16:31 Last Admin: 05/23/21 18:13 Dose: Not Given Documented by: Remdesivir 100 mg/ Sodium (Chloride) 100 mls @ 100 mls/hr IV Q24H [facility] Stop: 05/27/21 18:59 Last Admin: 05/27/21 18:14 Dose: 100 mls/hr Documented by: Tocilizumab 800 mg/ Sodium (Chloride) 100 mls @ 100 mls/hr IV ONETIME ONE Stop: 05/24/21 08:59 Last Admin: 05/24/21 09:38 Dose: 100 mls/hr Documented by: Sodium Chloride (Normal Saline) 500 mls @ 999 mls/hr IV .BOLUS ONE Stop: 05/25/21 19:45 Last Admin: 05/25/21 18:54 Dose: 999 mls/hr Documented by: Sodium Chloride (Sodium Chloride 3% Inhalation Soln 4 Ml Neb) 3 ml NEB Q6HRRT [facility] Last Admin: 05/26/21 14:22 Dose: 3 ml Documented by: - Exam Quality Assessment: Supplemental Oxygen Urinary Catheter Total Time: 3Days 17Hours General: Alert, Oriented HEENT: Pupils Equal, Mucous Membr. Moist/[place] Neck: Supple Lungs: Decreased Breath Sounds. No: Normal Respiratory Effort (Increased rate and effort) Cardiovascular: Regular Rate, Regular Rhythm GI/Abdominal Exam: Normal Bowel Sounds, Soft, Non-Tender, No Distention (Morbidly obese) Extremities: Normal Inspection, Normal Range of Motion, Non-Tender, No Pedal Edema Skin: Warm, Dry, Intact Psy/Mental Status: Alert, Normal Affect, Normal Mood - Patient Data Lab Results Last 24 hrs: Laboratory Results - last 24 hr 05/28/21 05/28/21 05/28/21 Range/Units 04:52 04:52 04:52 WBC 11.65 H (4.23-9.07) K/mm3 RBC 5.12 (4.63-6.08) M/mm3 Hgb 13.6 L (13.7-17.5) gm/dl Hct 42.2 (40.1-51.0) % MCV 82.4 (79.0-92.2) fl MCH 26.6 (25.7-32.2) pg MCHC 32.2 (32.2-35.5) g/dl RDW Std Deviation 44.0 H (35.1-43.9) fL Plt Count 289 (163-337) K/mm3 MPV 9.3 L (9.4-12.3) fl Neut % (Auto) 67.1 (34.0-67.9) % Lymph % (Auto) 17.6 L (21.8-53.1) % [place] % (Auto) 5.2 L (5.3-12.2) % Eos % (Auto) 0.8 (0.8-7.0) Baso % (Auto) 0.6 (0.1-1.2) % Neut # (Auto) 7.82 H (1.78-5.38) K/mm3 Lymph # (Auto) 2.05 (1.32-3.57) K/mm3 [place] # (Auto) 0.61 (0.30-0.82) K/mm3 Eos # (Auto) 0.09 (0.04-0.54) K/mm3 Baso # (Auto) 0.07 (0.01-0.08) K/mm3 Manual Slide Review Abnormal smear D-Dimer, Quantitative 3.34 H (0.19-0.50) mg/L Sodium 141 (136-145) mEq/L Potassium 3.4 L (3.5-5.1) mEq/L Chloride 101 (98-107) mEq/L Carbon Dioxide 32 (21-32) mEq/L Anion Gap 11.4 (5-15) BUN 23 H (7-18) mg/dL Creatinine 0.9 (0.7-1.3) mg/dL Est Cr Clr Drug Dosing 104.15 mL/min Estimated GFR (MDRD) > 60 (>60) mL/min BUN/Creatinine Ratio 25.6 H (14-18) Glucose 85 (70-99) mg/dL Calcium 8.4 L (8.5-10.1) mg/dL Phosphorus 4.5 (2.6-4.7) mg/dL Magnesium 2.3 (1.8-2.4) mg/dL Total Bilirubin 0.5 (0.2-1.0) mg/dL AST 71 H (15-37) U/L ALT 89 H (16-63) U/L Alkaline Phosphatase 71 (46-116) U/L C-Reactive Protein 0.7 (<1.0) mg/dL Total Protein 6.1 L (6.4-8.2) g/dl Albumin 2.9 L (3.4-5.0) g/dl Globulin 3.2 gm/dL Albumin/Globulin Ratio 0.9 L (1-2) Result Diagrams: 05/28/21 04:52 05/28/21 04:52 Sepsis Event Note - Evaluation Sepsis Screening Result: Possible Sepsis Risk - Focused Exam Vital Signs: Vital Signs Temp Pulse Resp BP Pulse Ox Pulse Ox Pulse Ox 05/28/21 08:19 90 L 05/28/21 08:00 97.1 F 67 34 H 115/69 92 L 05/28/21 06:11 94 L 05/28/21 04:00 97.4 F 50 L 32 H 100/49 L 91 L 05/28/21 03:10 96 05/28/21 01:01 96 - Problem List & Annotations (1) Pneumonia due to COVID-19 virus SNOMED Code(s): 959758453426866310 Code(s): U07.1 - COVID-19; J12.82 - PNEUMONIA DUE TO CORONAVIRUS DISEASE 2019 Status: Acute Current Visit: Yes (2) Respiratory failure SNOMED Code(s): 914620855 Code(s): J96.90 - RESPIRATORY FAILURE, UNSP, UNSP W HYPOXIA OR HYPERCAPNIA Status: Acute Current Visit: Yes - Problem List Review Problem List Initiated/Reviewed/Updated: Yes - My Orders Last 24 Hours: My Active Orders 05/27/21 16:18 Renew/Continue Urinary Catheter [OM.PC] Routine 05/28/21 09:00 Apixaban [Eliquis] 5 mg PO BID 05/28/21 09:28 Urinary Catheter Removal [RC] PER UNIT ROUTINE - Plan Plan:: 26-year-old morbidly obese male admitted for respiratory failure secondary to COVID-19 pneumonia. COVID-19 pneumonia Respiratory failure * Presented to the [place] walk-in clinic with oxygen saturations in the 60s * Placed on high flow nasal cannula in the emergency department * CTA of the chest revealed Covid pneumonia but no obvious PE * CRP 10.6, and WBC 10.62 * Given remdesivir and dexamethasone in the emergency department * Received Actemra on 05/24 * Unvaccinated against Covid 05/24 wbc increase to 11, likely due to dex, left shift, with a mild increase in ddimer from 1.2 to 1.7. , phos increased, and will add mucinex and mucomyst x 1 due to sputum is so thick. cont in icu, RT, acapella, IS, high flow cont and try to wean but we are having difficulty with maining above 84 during exam. Cont remdesivir and dex. Actemra started 05/25/21 mucous plugging and worsening yesterday afternoon. Mucomyst and hypertonic saline given and one time dose of lasix 20 iv. he improved and was placed on bipap and slept overnight but did desaturate overnight but increased with arousal. Today he wants to sit up and wants to ty to go with out bipap and do highflow. he states things feel like there are loose and feel like he can cough things up today 05/26/21 being difficulty getting back to high flow. Patient is requiring 100% FiO2, BiPAP, , cooperating and proning, continues on remdesivir and Decadron, continues to do I-S, CTA was negative, and his weight is down from 4 25-4 16. Changes in medical treatment at this time. Most likely his body habitus is what is his largest contributor to not recovering quickly. 05/27/2021 Patient continues to be on BiPAP, but FiO2 has decreased to 90%. Patient continues to cooperate with proning. He is on remdesivir and dexamethasone, day 5. Lab work unremarkable. Continuing on I-S. He is starting to eat a little better, and drinks the protein shakes when able. Continue to monitor. 05/28/2021 Patient was able to wean down to high flow nasal cannula last night and this morning. Unfortunately, after having a shower he was unable to maintain saturations on high flow. Patient is back on BiPAP at this time. Also, his D- dimer increased to 3.34. His CT angiogram from May 23 was unsatisfactory to show PE in the small airways because of his body habitus, therefore I feel it is not beneficial to re-CT scan him. Patient will be started on Eliquis 5 mg twice daily. It is likely he is having micro emboli considering his D-dimer, obesity, sedentary because of his oxygenation, and a Covid status. We will continue to follow him closely over the next 24 hours and hopefully wean him back to high flow. Fatty liver * Mild elevation in AST and ALT, with normal alkaline phosphatase, and total bilirubin * Albumin decreased to 2.9, likely secondary to COVID-19 * CT scan of the chest demonstrated fatty liver Pt. will address with pcp * VTE prophylaxis with Eliquis 5 mg twice daily * CODE STATUS: Full code
[2021-05-28] MEDS: Benzonatate 100 MG Cap PO PRN (20:00)
[2021-05-28] MEDS: Temazepam 15 MG Cap PO PRN (20:06)
[2021-05-29] MEDS: guaiFENesin 600 MG Tab.ER PO SCH ×2 (08:01→20:00)
[2021-05-29] MEDS: Calcium Carbonate 500 MG Tab.Chew PO SCH ×2 (08:01→20:01)
[2021-05-29] MEDS: Dexamethasone 4 MG Tab PO SCH (08:01)
[2021-05-29] MEDS: Apixaban 5 MG Tab PO SCH ×2 (08:01→20:01)
[2021-05-29] MEDS: Albuterol 6.7 GM Inhaler INH PRN (08:21)
--- NOTE | 2021-05-29 12:36 | PCM.PN ---
- General Info Date of Service: 05/29/21 Admission Dx/Problem (Free Text): Admission Diagnosis/Problem Admission Diagnosis/Problem Hypoxia/covid pneumonia Subjective Update: 26-year-old with respiratory failure secondary to COVID-19 pneumonia. Patient has been able to wean down to high flow nasal cannula. Unfortunately it is still at 60 L and 94%. Patient continues to feel short of breath. Functional Status: Reports: Pain Controlled - Review of Systems General: Reports: Fatigue HEENT: Reports: No Symptoms Pulmonary: Reports: Shortness of Breath, Cough Cardiovascular: Reports: No Symptoms Gastrointestinal: Reports: No Symptoms Musculoskeletal: Reports: No Symptoms - Patient Data Vitals - Most Recent: Last Vital Signs Temp 97 F 05/29/21 08:03 Pulse 77 05/28/21 16:00 Resp 28 H 05/29/21 08:03 BP 153/80 H 05/29/21 08:03 Pulse Ox 90 L 05/29/21 08:21 Weight - Most Recent: 413 lb 14.4 oz I&O - Last 24 Hours: Intake & Output 05/28/21 05/29/21 05/29/21 22:59 06:59 14:59 Intake Total 1480 1000 Output Total 450 Balance 1030 1000 Med Orders - Current: Current Medications Acetaminophen (Acetaminophen 325 Mg Tab) 650 mg PO Q4H PRN PRN Reason: Pain (Mild 1-3)/fever Acetaminophen/Codeine Phosphate (Acetaminophen/Codeine 300-30 Mg Tab) 2 tab PO Q4H PRN PRN Reason: Cough Last Admin: 05/25/21 08:34 Dose: 2 tab Documented by: Albuterol (Albuterol 6.7 Gm Inhaler) 0 gm INH Q4H PRN PRN Reason: Shortness of Breath Last Admin: 05/29/21 08:21 Dose: 2 puff Documented by: Albuterol/Ipratropium (Albuterol/Ipratropium 3.0-0.5 Mg/3 Ml Neb Soln) 3 ml NEB Q4H PRN PRN Reason: Shortness Of Breath/wheezing Last Admin: 05/28/21 20:12 Dose: 3 ml Documented by: Apixaban (Apixaban 5 Mg Tab) 5 mg PO BID [facility] Last Admin: 05/29/21 08:01 Dose: 5 mg Documented by: Benzonatate (Benzonatate 100 Mg Cap) 200 mg PO TID PRN PRN Reason: Cough Last Admin: 05/28/21 20:00 Dose: 200 mg Documented by: Calcium Carbonate/Glycine (Calcium Carbonate 500 Mg Tab.Chew) 500 mg PO BID [facility] Last Admin: 05/29/21 08:01 Dose: 500 mg Documented by: Dexamethasone (Dexamethasone 4 Mg Tab) 6 mg PO DAILY [facility] Stop: 06/01/21 09:01 Last Admin: 05/29/21 08:01 Dose: 6 mg Documented by: Guaifenesin (Guaifenesin 600 Mg Tab.Er) 600 mg PO BID [facility] Last Admin: 05/29/21 08:01 Dose: 600 mg Documented by: Hydroxyzine HCl (Hydroxyzine Hcl 25 Mg Tab) 25 mg PO Q6H PRN PRN Reason: Anxiety Last Admin: 05/26/21 23:15 Dose: 25 mg Documented by: Nystatin (Nystatin Topical Powder 15 Gm Bottle) 0 gm TOP Q6H PRN PRN Reason: Itching Ondansetron HCl (Ondansetron 4 Mg/2 Ml Sdv) 4 mg IV Q6H PRN PRN Reason: Nausea/Vomiting Last Admin: 05/24/21 16:15 Dose: 4 mg Documented by: Sodium Chloride (Sodium Chloride 0.9% 10 Ml Syringe) 10 ml FLUSH ASDIRECTED PRN PRN Reason: Keep Vein Open Last Admin: 05/23/21 10:20 Dose: 10 ml Documented by: Temazepam (Temazepam 15 Mg Cap) 15 mg PO BEDTIME PRN PRN Reason: Insomnia Last Admin: 05/28/21 20:06 Dose: 15 mg Documented by: Discontinued Medications Acetylcysteine (Acetylcysteine 20% 200 Mg/Ml 4 Ml Nebulizer Soln Sdv) 600 mg NEB ONETIME ONE Stop: 05/24/21 09:01 Last Admin: 05/24/21 08:48 Dose: 600 mg Documented by: Acetylcysteine (Acetylcysteine 20% 200 Mg/Ml 4 Ml Nebulizer Soln Sdv) 600 mg NEB TID [facility] Last Admin: 05/24/21 15:03 Dose: 600 mg Documented by: Acetylcysteine (Acetylcysteine 20% 200 Mg/Ml 4 Ml Nebulizer Soln Sdv) 600 mg NE B Q6H [facility] Last Admin: 05/26/21 14:22 Dose: 600 mg Documented by: Dexamethasone (Dexamethasone 4 Mg/Ml Sdv) 6 mg IVPUSH ONETIME ONE Stop: 05/23/21 12:50 Last Admin: 05/23/21 17:56 Dose: 6 mg Documented by: Dexamethasone (Dexamethasone 10 Mg/Ml Sdv) Confirm Administered Dose 10 mg .ROUTE .STK-MED ONE Stop: 05/23/21 16:24 Last Admin: 05/23/21 17:55 Dose: Not Given Documented by: Enoxaparin Sodium (Enoxaparin 40 Mg/0.4 Ml Syringe) 40 mg SUBCUT BID [facility] Last Admin: 05/28/21 08:08 Dose: 40 mg Documented by: Furosemide (Furosemide 20 Mg/2 Ml Vial) 20 mg IVPUSH ONETIME ONE Stop: 05/24/21 17:11 Last Admin: 05/24/21 17:25 Dose: 20 mg Documented by: Remdesivir 200 mg/ Sodium (Chloride) 250 mls @ 250 mls/hr IV ONETIME ONE Stop: 05/23/21 12:49 Last Admin: 05/23/21 17:51 Dose: 250 mls/hr Documented by: Remdesivir (Remdesivir) Confirm Administered Dose 100 mls @ as directed .ROUTE .STK-MED ONE Stop: 05/23/21 16:24 Last Admin: 05/23/21 18:10 Dose: Not Given Documented by: Sodium Chloride (Normal Saline) Confirm Administered Dose 250 mls @ as directed .ROUTE .ST-MED ONE Stop: 05/23/21 16:26 Last Admin: 05/23/21 18:13 Dose: Not Given Documented by: Remdesivir (Remdesivir) Confirm Administered Dose 100 mls @ as directed .ROUTE .STK-MED ONE Stop: 05/23/21 16:31 Last Admin: 05/23/21 18:13 Dose: Not Given Documented by: Remdesivir 100 mg/ Sodium (Chloride) 100 mls @ 100 mls/hr IV Q24H [facility] Stop: 05/27/21 18:59 Last Admin: 05/27/21 18:14 Dose: 100 mls/hr Documented by: Tocilizumab 800 mg/ Sodium (Chloride) 100 mls @ 100 mls/hr IV ONETIME ONE Stop: 05/24/21 08:59 Last Admin: 05/24/21 09:38 Dose: 100 mls/hr Documented by: Sodium Chloride (Normal Saline) 500 mls @ 999 mls/hr IV .BOLUS ONE Stop: 05/25/21 19:45 Last Admin: 05/25/21 18:54 Dose: 999 mls/hr Documented by: Sodium Chloride (Sodium Chloride 3% Inhalation Soln 4 Ml Neb) 3 ml NEB Q6HRRT [facility] Last Admin: 05/26/21 14:22 Dose: 3 ml Documented by: - Exam Quality Assessment: Supplemental Oxygen Urinary Catheter Total Time: 3Days 17Hours General: Alert, Oriented HEENT: Pupils Equal, Mucous Membr. Moist/[place] Neck: Supple Lungs: Decreased Breath Sounds, Crackles. No: Normal Respiratory Effort (Increased respiratory rate and effort) Cardiovascular: Regular Rate, Regular Rhythm GI/Abdominal Exam: Normal Bowel Sounds, Soft, Non-Tender, No Distention (Mo rbidly obese) Extremities: Normal Inspection, Non-Tender, Normal Capillary Refill Skin: Warm, Dry, Intact Psy/Mental Status: Alert, Normal Affect, Normal Mood - Patient Data Result Diagrams: 05/28/21 04:52 05/28/21 04:52 Sepsis Event Note - Evaluation Sepsis Screening Result: Possible Sepsis Risk - Focused Exam Vital Signs: Vital Signs Temp Resp BP Pulse Ox Pulse Ox 05/29/21 08:21 90 L 05/29/21 08:03 97 F 28 H 153/80 H 87 L 05/29/21 04:00 97.8 F 28 H 117/54 L 88 L 05/29/21 03:00 86 L 05/29/21 01:00 87 L - Problem List & Annotations (1) Pneumonia due to COVID-19 virus SNOMED Code(s): 948169850301959556 Code(s): U07.1 - COVID-19; J12.82 - PNEUMONIA DUE TO CORONAVIRUS DISEASE 2019 Status: Acute Current Visit: Yes (2) Respiratory failure SNOMED Code(s): 962110006 Code(s): J96.90 - RESPIRATORY FAILURE, UNSP, UNSP W HYPOXIA OR HYPERCAPNIA Status: Acute Current Visit: Yes - Problem List Review Problem List Initiated/Reviewed/Updated: Yes - My Orders Last 24 Hours: My Active Orders 05/29/21 12:17 Nystatin [Nystop] 0 gm TOP Q6H PRN - Plan Plan:: 26-year-old morbidly obese male admitted for respiratory failure secondary to COVID-19 pneumonia. COVID-19 pneumonia Respiratory failure * Presented to the [place] walk-in clinic with oxygen saturations in the 60s * Placed on high flow nasal cannula in the emergency department * CTA of the chest revealed Covid pneumonia but no obvious PE * CRP 10.6, and WBC 10.62 * Given remdesivir and dexamethasone in the emergency department * Received Actemra on 05/24 * Unvaccinated against Covid * Completed remdesivir * Dexamethasone day 7 of 10 * CRP below 1 on 05/28/202105/24 wbc increase to 11, likely due to dex, left shift, with a mild increase in ddimer from 1.2 to 1.7. , phos increased, and will add mucinex and mucomyst x 1 due to sputum is so thick. cont in icu, RT, acapella, IS, high flow cont and try to wean but we are having difficulty with maining above 84 during exam. Cont remdesivir and dex. Actemra started 05/25/21 mucous plugging and worsening yesterday afternoon. Mucomyst and hypertonic saline given and one time dose of lasix 20 iv. he improved and was placed on bipap and slept overnight but did desaturate overnight but increased with arousal. Today he wants to sit up and wants to ty to go with out bipap and do highflow. he states things feel like there are loose and feel like he can cough things up today 05/26/21 being difficulty getting back to high flow. Patient is requiring 100% FiO2, BiPAP, , cooperating and proning, continues on remdesivir and D ecadron, continues to do I-S, CTA was negative, and his weight is down from 4 25-4 16. Changes in medical treatment at this time. Most likely his body habitus is what is his largest contributor to not recovering quickly. 05/27/2021 Patient continues to be on BiPAP, but FiO2 has decreased to 90%. Patient continues to cooperate with proning. He is on remdesivir and dexamethasone, day 5. Lab work unremarkable. Continuing on I-S. He is starting to eat a little better, and drinks the protein shakes when able. Continue to monitor. 05/28/2021 Patient was able to wean down to high flow nasal cannula last night and this morning. Unfortunately, after having a shower he was unable to maintain sa turations on high flow. Patient is back on BiPAP at this time. Also, his D- dimer increased to 3.34. His CT angiogram from May 23 was unsatisfactory to show PE in the small airways because of his body habitus, therefore I feel it is not beneficial to re-CT scan him. Patient will be started on Eliquis 5 mg twice daily. It is likely he is having micro emboli considering his D-dimer, obesity, sedentary because of his oxygenation, and a Covid status. We will continue to follow him closely over the next 24 hours and hopefully wean him back to high flow. 05/29/2021 Oxygenation support has improved. He is now on high flow nasal cannula at 60 L and 94%. Appetite is good and he has been eating 100% of his meals. Patient was placed on Eliquis yesterday at 5 mg twice daily. He has finished remdesivir. Fatty liver * Mild elevation in AST and ALT, with normal alkaline phosphatase, and total bilirubin * Albumin decreased to 2.9, likely secondary to COVID-19 * CT scan of the chest demonstrated fatty liver Pt. will address with pcp * VTE prophylaxis with Eliquis 5 mg twice daily * CODE STATUS: Full code Plan * Patient still at high risk for worsening condition. * Continue on high flow/BiPAP as needed * DuoNeb every 4 hours as needed, albuterol MDI every 2 hours as needed * Recheck CBC, CMP, mag, Phos, CRP in the morning * Continue on dexamethasone for the full 10 days * Eliquis 5 mg twice daily. * Encouraging proning. * VTE prophylaxis with Eliquis * CODE STATUS full code
[2021-05-29] MEDS: Benzonatate 100 MG Cap PO PRN (20:01)
[2021-05-29] MEDS: Albuterol/Ipratropium 3.0-0.5 MG/3 ML Neb Soln NEB PRN (20:15)
[2021-05-29] MEDS: Temazepam 15 MG Cap PO PRN (21:58)
[2021-05-29] MEDS: Acetaminophen/Codeine 300-30 MG Tab PO PRN (21:58)
[2021-05-29] MEDS: Nystatin Topical Powder 15 GM Bottle TOP PRN (21:59)
[2021-05-30] MEDS: hydrOXYzine HCl 25 MG Tab PO PRN (03:31)
[2021-05-30] MEDS: Acetaminophen/Codeine 300-30 MG Tab PO PRN ×3 (03:31→22:41)
[2021-05-30] MEDS: Calcium Carbonate 500 MG Tab.Chew PO SCH ×2 (08:30→20:23)
[2021-05-30] MEDS: Dexamethasone 4 MG Tab PO SCH (08:31)
[2021-05-30] MEDS: Benzonatate 100 MG Cap PO PRN ×2 (08:31→20:23)
[2021-05-30] MEDS: guaiFENesin 600 MG Tab.ER PO SCH ×2 (08:31→20:23)
[2021-05-30] MEDS: Apixaban 5 MG Tab PO SCH ×2 (08:31→20:23)
[2021-05-30] MEDS: Albuterol/Ipratropium 3.0-0.5 MG/3 ML Neb Soln NEB PRN ×2 (09:18→21:03)
--- NOTE | 2021-05-30 10:27 | PCM.PN ---
- General Info Date of Service: 05/30/21 Admission Dx/Problem (Free Text): Admission Diagnosis/Problem Admission Diagnosis/Problem Hypoxia/covid pneumonia Subjective Update: Patient reports that he had some difficulty this morning when he first woke up. Sounds like he had some bit of anxiety with his difficulty breathing. According to nursing giving him some Mountain Dew seem to help that. Patient states he is feeling better now and has a better outlook. Functional Status: Reports: Pain Controlled - Review of Systems General: Reports: Fatigue HEENT: Reports: No Symptoms Pulmonary: Reports: Shortness of Breath, Cough Cardiovascular: Reports: No Symptoms Gastrointestinal: Reports: No Symptoms Neurological: Reports: No Symptoms Psychiatric: Reports: Anxiety - Patient Data Vitals - Most Recent: Last Vital Signs Temp 98 F 05/30/21 08:22 Pulse 77 05/28/21 16:00 Resp 26 H 05/30/21 08:22 BP 145/81 H 05/30/21 08:22 Pulse Ox 90 L 05/30/21 09:18 Weight - Most Recent: 411 lb 12.8 oz I&O - Last 24 Hours: Intake & Output 05/29/21 05/30/21 05/30/21 22:59 06:59 14:59 Intake Total 1340 1000 Balance 1340 1000 Lab Results Last 24 Hours: Laboratory Results - last 24 hr 05/30/21 05/30/21 Range/Units 06:22 06:22 WBC 13.09 H (4.23-9.07) K/mm3 RBC 5.32 (4.63-6.08) M/mm3 Hgb 14.0 (13.7-17.5) gm/dl Hct 44.2 (40.1-51.0) % MCV 83.1 (79.0-92.2) fl MCH 26.3 (25.7-32.2) pg MCHC 31.7 L (32.2-35.5) g/dl RDW Std Deviation 46.2 H (35.1-43.9) fL Plt Count 287 (163-337) K/mm3 MPV 9.1 L (9.4-12.3) fl Neut % (Auto) 67.3 (34.0-67.9) % Lymph % (Auto) 14.9 L (21.8-53.1) % [place] % (Auto) 5.3 (5.3-12.2) % Eos % (Auto) 3.1 (0.8-7.0) Baso % (Auto) 0.5 (0.1-1.2) % Neut # (Auto) 8.81 H (1.78-5.38) K/mm3 Lymph # (Auto) 1.95 (1.32-3.57) K/mm3 [place] # (Auto) 0.70 (0.30-0.82) K/mm3 Eos # (Auto) 0.40 (0.04-0.54) K/mm3 Baso # (Auto) 0.07 (0.01-0.08) K/mm3 Manual Slide Review Abnormal smear Sodium 142 (136-145) mEq/L Potassium 4.2 (3.5-5.1) mEq/L Chloride 106 (98-107) mEq/L Carbon Dioxide 31 (21-32) mEq/L Anion Gap 9.2 (5-15) BUN 21 H (7-18) mg/dL Creatinine 1.0 (0.7-1.3) mg/dL Est Cr Clr Drug Dosing 93.73 mL/min Estimated GFR (MDRD) > 60 (>60) mL/min BUN/Creatinine Ratio 21.0 H (14-18) Glucose 89 (70-99) mg/dL Calcium 8.9 (8.5-10.1) mg/dL Phosphorus 5.8 H (2.6-4.7) mg/dL Magnesium 2.4 (1.8-2.4) mg/dL Total Bilirubin 0.5 (0.2-1.0) mg/dL AST 63 H (15-37) U/L ALT 135 H (16-63) U/L Alkaline Phosphatase 73 (46-116) U/L C-Reactive Protein < 0.2 (<1.0) mg/dL Total Protein 6.2 L (6.4-8.2) g/dl Albumin 3.1 L (3.4-5.0) g/dl Globulin 3.1 gm/dL Albumin/Globulin Ratio 1.0 (1-2) Med Orders - Current: Current Medications Acetaminophen (Acetaminophen 325 Mg Tab) 650 mg PO Q4H PRN PRN Reason: Pain (Mild 1-3)/fever Acetaminophen/Codeine Phosphate (Acetaminophen/Codeine 300-30 Mg Tab) 2 tab PO Q4H PRN PRN Reason: Cough Last Admin: 05/30/21 08:31 Dose: 2 tab Documented by: Albuterol (Albuterol 6.7 Gm Inhaler) 0 gm INH Q4H PRN PRN Reason: Shortness of Breath Last Admin: 05/29/21 08:21 Dose: 2 puff Documented by: Albuterol/Ipratropium (Albuterol/Ipratropium 3.0-0.5 Mg/3 Ml Neb Soln) 3 ml NEB Q4H PRN PRN Reason: Shortness Of Breath/wheezing Last Admin: 05/30/21 09:18 Dose: 3 ml Documented by: Apixaban (Apixaban 5 Mg Tab) 5 mg PO BID [facility] Last Admin: 05/30/21 08:31 Dose: 5 mg Documented by: Benzonatate (Benzonatate 100 Mg Cap) 200 mg PO TID PRN PRN Reason: Cough Last Admin: 05/30/21 08:31 Dose: 200 mg Documented by: Calcium Carbonate/Glycine (Calcium Carbonate 500 Mg Tab.Chew) 500 mg PO BID [facility] Last Admin: 05/30/21 08:30 Dose: 500 mg Documented by: Dexamethasone (Dexamethasone 4 Mg Tab) 6 mg PO DAILY [facility] Stop: 06/01/21 09:01 Last Admin: 05/30/21 08:31 Dose: 6 mg Documented by: Guaifenesin (Guaifenesin 600 Mg Tab.Er) 600 mg PO BID [facility] Last Admin: 05/30/21 08:31 Dose: 600 mg Documented by: Hydroxyzine HCl (Hydroxyzine Hcl 25 Mg Tab) 25 mg PO Q6H PRN PRN Reason: Anxiety Last Admin: 05/30/21 03:31 Dose: 25 mg Documented by: Nystatin (Nystatin Topical Powder 15 Gm Bottle) 0 gm TOP Q6H PRN PRN Reason: Itching Last Admin: 05/29/21 21:59 Dose: 1 applicful Documented by: Ondansetron HCl (Ondansetron 4 Mg/2 Ml Sdv) 4 mg IV Q6H PRN PRN Reason: Nausea/Vomiting Last Admin: 05/24/21 16:15 Dose: 4 mg Documented by: Sodium Chloride (Sodium Chloride 0.9% 10 Ml Syringe) 10 ml FLUSH ASDIRECTED PRN PRN Reason: Keep Vein Open Last Admin: 05/23/21 10:20 Dose: 10 ml Documented by: Temazepam (Temazepam 15 Mg Cap) 15 mg PO BEDTIME PRN PRN Reason: Insomnia Last Admin: 05/29/21 21:58 Dose: 15 mg Documented by: Discontinued Medications Acetylcysteine (Acetylcysteine 20% 200 Mg/Ml 4 Ml Nebulizer Soln Sdv) 600 mg NEB ONETIME ONE Stop: 05/24/21 09:01 Last Admin: 05/24/21 08:48 Dose: 600 mg Documented by: Acetylcysteine (Acetylcysteine 20% 200 Mg/Ml 4 Ml Nebulizer Soln Sdv) 600 mg NEB TID LIS Last Admin: 05/24/21 15:03 Dose: 600 mg Documented by: Acetylcysteine (Acetylcysteine 20% 200 Mg/Ml 4 Ml Nebulizer Soln Sdv) 600 mg NEB Q6H [facility] Last Admin: 05/26/21 14:22 Dose: 600 mg Documented by: Dexamethasone (Dexamethasone 4 Mg/Ml Sdv) 6 mg IVPUSH ONETIME ONE Stop: 05/23/21 12:50 Last Admin: 05/23/21 17:56 Dose: 6 mg Documented by: Dexamethasone (Dexamethasone 10 Mg/Ml Sdv) Confirm Administered Dose 10 mg .ROUTE .STK-MED ONE Stop: 05/23/21 16:24 Last Admin: 05/23/21 17:55 Dose: Not Given Documented by: Enoxaparin Sodium (Enoxaparin 40 Mg/0.4 Ml Syringe) 40 mg SUBCUT BID [facility] Last Admin: 05/28/21 08:08 Dose: 40 mg Documented by: Furosemide (Furosemide 20 Mg/2 Ml Vial) 20 mg IVPUSH ONETIME ONE Stop: 05/24/21 17:11 Last Admin: 05/24/21 17:25 Dose: 20 mg Documented by: Remdesivir 200 mg/ Sodium (Chloride) 250 mls @ 250 mls/hr IV ONETIME ONE Stop: 05/23/21 12:49 Last Admin: 05/23/21 17:51 Dose: 250 mls/hr Documented by: Remdesivir (Remdesivir) Confirm Administered Dose 100 mls @ as directed .ROUTE .STK-MED ONE Stop: 05/23/21 16:24 Last Admin: 05/23/21 18:10 Dose: Not Given Documented by: Sodium Chloride (Normal Saline) Confirm Administered Dose 250 mls @ as directed .ROUTE .STK-MED ONE Stop: 05/23/21 16:26 Last Admin: 05/23/21 18:13 Dose: Not Given Documented by: Remdesivir (Remdesivir) Confirm Administered Dose 100 mls @ as directed .ROUTE .STK-MED ONE Stop: 05/23/21 16:31 Last Admin: 05/23/21 18:13 Dose: Not Given Documented by: Remdesivir 100 mg/ Sodium (Chloride) 100 mls @ 100 mls/hr IV Q24H [facility] Stop: 05/27/21 18:59 Last Admin: 05/27/21 18:14 Dose: 100 mls/hr Documented by: Tocilizumab 800 mg/ Sodium (Chloride) 100 mls @ 100 mls/hr IV ONETIME ONE Stop: 05/24/21 08:59 Last Admin: 05/24/21 09:38 Dose: 100 mls/hr Documented by: Sodium Chloride (Normal Saline) 500 mls @ 999 mls/hr IV .BOLUS ONE Stop: 05/25/21 19:45 Last Admin: 05/25/21 18:54 Dose: 999 mls/hr Documented by: Sodium Chloride (Sodium Chloride 3% Inhalation Soln 4 Ml Neb) 3 ml NEB Q6HRRT [facility] Last Admin: 05/26/21 14:22 Dose: 3 ml Documented by: - Exam Quality Assessment: Supplemental Oxygen (High flow nasal cannula) Urinary Catheter Total Time: 3Days 17Hours General: Alert, Oriented HEENT: Pupils Equal, Mucous Membr. Moist/[place] Neck: Supple Lungs: Crackles (Throughout both lung [place]). No: Normal Respiratory Effort (Increased respiratory rate and effort) Cardiovascular: Regular Rate, Regular Rhythm GI/Abdominal Exam: Normal Bowel Sounds, Soft, Non-Tender, No Organomegaly, No Distention (Morbidly obese), No Abnormal Bruit, No Mass Extremities: Normal Inspection, Non-Tender, No Pedal Edema (1+) Skin: Warm, Dry, Intact Psy/Mental Status: Alert, Normal Affect, Normal Mood - Patient Data Lab Results Last 24 hrs: Laboratory Results - last 24 hr 05/30/21 05/30/21 Range/Units 06:22 06:22 WBC 13.09 H (4.23-9.07) K/mm3 RBC 5.32 (4.63-6.08) M/mm3 Hgb 14.0 (13.7-17.5) gm/dl Hct 44.2 (40.1-51.0) % MCV 83.1 (79.0-92.2) fl MCH 26.3 (25.7-32.2) pg MCHC 31.7 L (32.2-35.5) g/dl RDW Std Deviation 46.2 H (35.1-43.9) fL Plt Count 287 (163-337) K/mm3 MPV 9.1 L (9.4-12.3) fl Neut % (Auto) 67.3 (34.0-67.9) % Lymph % (Auto) 14.9 L (21.8-53.1) % [place] % (Auto) 5.3 (5.3-12.2) % Eos % (Auto) 3.1 (0.8-7.0) Baso % (Auto) 0.5 (0.1-1.2) % Neut # (Auto) 8.81 H (1.78-5.38) K/mm3 Lymph # (Auto) 1.95 (1.32-3.57) K/mm3 [place] # (Auto) 0.70 (0.30-0.82) K/mm3 Eos # (Auto) 0.40 (0.04-0.54) K/mm3 Baso # (Auto) 0.07 (0.01-0.08) K/mm3 Manual Slide Review Abnormal smear Sodium 142 (136-145) mEq/L Potassium 4.2 (3.5-5.1) mEq/L Chloride 106 (98-107) mEq/L Carbon Dioxide 31 (21-32) mEq/L Anion Gap 9.2 (5-15) BUN 21 H (7-18) mg/dL Creatinine 1.0 (0.7-1.3) mg/dL Est Cr Clr Drug Dosing 93.73 mL/min Estimated GFR (MDRD) > 60 (>60) mL/min BUN/Creatinine Ratio 21.0 H (14-18) Glucose 89 (70-99) mg/dL Calcium 8.9 (8.5-10.1) mg/dL Phosphorus 5.8 H (2.6-4.7) mg/dL Magnesium 2.4 (1.8-2.4) mg/dL Total Bilirubin 0.5 (0.2-1.0) mg/dL AST 63 H (15-37) U/L ALT 135 H (16-63) U/L Alkaline Phosphatase 73 (46-116) U/L C-Reactive Protein < 0.2 (<1.0) mg/dL Total Protein 6.2 L (6.4-8.2) g/dl Albumin 3.1 L (3.4-5.0) g/dl Globulin 3.1 gm/dL Albumin/Globulin Ratio 1.0 (1-2) Result Diagrams: 05/30/21 06:22 05/30/21 06:22 Sepsis Event Note - Evaluation Sepsis Screening Result: Possible Sepsis Risk - Focused Exam Vital Signs: Vital Signs Temp Resp BP BP Pulse Ox Pulse Ox 05/30/21 09:18 90 L 05/30/21 08:22 98 F 26 H 145/81 H 05/30/21 06:00 92 L 05/30/21 05:00 91 L 05/30/21 04:00 98.1 F 28 H 140/69 89 L 05/30/21 03:00 89 L 05/30/21 02:00 89 L 05/30/21 01:00 90 L 05/30/21 00:00 97.8 F 24 H 136/60 89 L 05/29/21 23:00 88 L - Problem List & Annotations (1) Pneumonia due to COVID-19 virus SNOMED Code(s): 082938435494402418 Code(s): U07.1 - COVID-19; J12.82 - PNEUMONIA DUE TO CORONAVIRUS DISEASE 2019 Status: Acute Current Visit: Yes (2) Respiratory failure SNOMED Code(s): 852424718 Code(s): J96.90 - RESPIRATORY FAILURE, UNSP, UNSP W HYPOXIA OR HYPERCAPNIA Status: Acute Current Visit: Yes - Problem List Review Problem List Initiated/Reviewed/Updated: Yes - My Orders Last 24 Hours: My Active Orders 05/29/21 12:17 Nystatin [Nystop] 0 gm TOP Q6H PRN - Plan Plan:: 26-year-old morbidly obese male admitted for respiratory failure secondary to COVID-19 pneumonia. COVID-19 pneumonia Respiratory failure * Presented to the [facility] [facility]in [facility] with oxygen saturations in the 60s * Placed on high flow nasal cannula in the emergency department * CTA of the chest revealed Covid pneumonia but no obvious PE * CRP 10.6, and WBC 10.62 * Given remdesivir and dexamethasone in the emergency department * Received Actemra on 05/24 * Unvaccinated against Covid * Completed remdesivir * Dexamethasone day 7 * CRP below 1 on 05/28/202105/24 wbc increase to 11, likely due to dex, left shift, with a mild increase in ddimer from 1.2 to 1.7. , phos increased, and will add mucinex and mucomyst x 1 due to sputum is so thick. cont in icu, RT, acapella, IS, high flow cont and try to wean but we are having difficulty with maining above 84 during exam. Cont remdesivir and dex. Actemra started 05/25/21 mucous plugging and worsening yesterday afternoon. Mucomyst and hypertonic saline given and one time dose of lasix 20 iv. he improved and was placed on bipap and slept overnight but did desaturate overnight but increased with arousal. Today he wants to sit up and wants to ty to go with out bipap and do highflow. he states things feel like there are loose and feel like he can cough things up today 05/26/21 being difficulty getting back to high flow. Patient is requiring 100% FiO2, BiPAP, 20/15, cooperating and proning, continues on remdesivir and D ecadron, continues to do I-S, CTA was negative, and his weight is down from 4 25-4 16. Changes in medical treatment at this time. Most likely his body habitus is what is his largest contributor to not recovering quickly. 05/27/2021 Patient continues to be on BiPAP, but FiO2 has decreased to 90%. Patient continues to cooperate with proning. He is on remdesivir and dexamethasone, day 5. Lab work unremarkable. Continuing on I-S. He is starting to eat a little better, and drinks the protein shakes when able. Continue to monitor. 05/28/2021 Patient was able to wean down to high flow nasal cannula last night and this morning. Unfortunately, after having a shower he was unable to maintain sa turations on high flow. Patient is back on BiPAP at this time. Also, his D- dimer increased to 3.34. His CT angiogram from May 23 was unsatisfactory to show PE in the small airways because of his body habitus, therefore I feel it is not beneficial to re-CT scan him. Patient will be started on Eliquis 5 mg twice daily. It is likely he is having micro emboli considering his D-dimer, obesity, sedentary because of his oxygenation, and a Covid status. We will continue to follow him closely over the next 24 hours and hopefully wean him back to high flow. 05/29/2021 Oxygenation support has improved. He is now on high flow nasal cannula at 60 L and 94%. Appetite is good and he has been eating 100% of his meals. Patient was placed on Eliquis yesterday at 5 mg twice daily. He has finished remdesivir. 05/30/2021 Patient continues on high flow nasal cannula at 60 L and 85% FiO2. Blood pr essures this afternoon have been slightly elevated and continue to watch them. He will continue on Eliquis and dexamethasone. Continue following labs as below and respiratory therapy. Fatty liver * Mild elevation in AST and ALT, with normal alkaline phosphatase, and total bilirubin * Albumin decreased to 2.9, likely secondary to COVID-19 * CT scan of the chest demonstrated fatty liver Pt. will address with pcp * VTE prophylaxis with Eliquis 5 mg twice daily * CODE STATUS: Full code Plan * Patient still at high risk for worsening condition. * I-S, proning, respiratory therapy, albuterol, DuoNeb's, and other routine COVID therapy. * Continue on high flow/BiPAP as needed * DuoNeb every 4 hours as needed, albuterol MDI every 2 hours as needed * Recheck CBC, CMP, mag, Phos, CRP in the morning * Continue on dexamethasone for the full 10 days * Eliquis 5 mg twice daily. * Encouraging proning. * VTE prophylaxis with Eliquis * CODE STATUS full code
[2021-05-30] MEDS: Albuterol 6.7 GM Inhaler INH PRN (15:48)
[2021-05-30] MEDS: Nystatin Topical Powder 15 GM Bottle TOP PRN (20:26)
[2021-05-30] MEDS: Temazepam 15 MG Cap PO PRN (22:41)
[2021-05-31] MEDS: Albuterol/Ipratropium 3.0-0.5 MG/3 ML Neb Soln NEB PRN ×2 (08:04→22:33)
--- NOTE | 2021-05-31 08:11 | PCM.PN ---
- General Info Date of Service: 05/31/21 Admission Dx/Problem (Free Text): Admission Diagnosis/Problem Admission Diagnosis/Problem Hypoxia/covid pneumonia Subjective Update: Angel states he is feeling much better today. He does not have any significant shortness of breath but slight cough. Oxygen requirements have improved slightly also with his high flow nasal cannula at 55 L and 80%. Functional Status: Reports: Pain Controlled - Review of Systems General: Reports: No Symptoms HEENT: Reports: No Symptoms Pulmonary: Reports: Cough. Denies: Shortness of Breath Cardiovascular: Reports: No Symptoms Musculoskeletal: Reports: No Symptoms Psychiatric: Reports: No Symptoms - Patient Data Vitals - Most Recent: Last Vital Signs Temp 97.4 F 05/31/21 04:00 Pulse 77 05/28/21 16:00 Resp 26 H 05/31/21 04:00 BP 124/62 05/31/21 04:00 Pulse Ox 91 L 05/31/21 08:05 Weight - Most Recent: 413 lb 6.4 oz I&O - Last 24 Hours: Intake & Output 05/30/21 05/31/21 05/31/21 22:59 06:59 14:59 Intake Total 1140 800 Balance 1140 800 Lab Results Last 24 Hours: Laboratory Results - last 24 hr 05/30/21 Range/Units 06:22 Manual Slide Review Abnormal smear Med Orders - Current: Current Medications Acetaminophen (Acetaminophen 325 Mg Tab) 650 mg PO Q4H PRN PRN Reason: Pain (Mild 1-3)/fever Acetaminophen/Codeine Phosphate (Acetaminophen/Codeine 300-30 Mg Tab) 2 tab PO Q4H PRN PRN Reason: Cough Last Admin: 05/30/21 22:41 Dose: 2 tab Documented by: Albuterol (Albuterol 6.7 Gm Inhaler) 0 gm INH Q4H PRN PRN Reason: Shortness of Breath Last Admin: 05/30/21 15:48 Dose: 2 puff Documented by: Albuterol/Ipratropium (Albuterol/Ipratropium 3.0-0.5 Mg/3 Ml Neb Soln) 3 ml NEB Q4H PRN PRN Reason: Shortness Of Breath/wheezing Last Admin: 05/31/21 08:04 Dose: 3 ml Documented by: Apixaban (Apixaban 5 Mg Tab) 5 mg PO BID LIS Last Admin: 05/30/21 20:23 Dose: 5 mg Documented by: Benzonatate (Benzonatate 100 Mg Cap) 200 mg PO TID PRN PRN Reason: Cough Last Admin: 05/30/21 20:23 Dose: 200 mg Documented by: Calcium Carbonate/Glycine (Calcium Carbonate 500 Mg Tab.Chew) 500 mg PO BID [facility] Last Admin: 05/30/21 20:23 Dose: 500 mg Documented by: Dexamethasone (Dexamethasone 4 Mg Tab) 6 mg PO DAILY LIS Stop: 06/01/21 09:01 Last Admin: 05/30/21 08:31 Dose: 6 mg Documented by: Guaifenesin (Guaifenesin 600 Mg Tab.Er) 600 mg PO BID [facility] Last Admin: 05/30/21 20:23 Dose: 600 mg Documented by: Hydroxyzine HCl (Hydroxyzine Hcl 25 Mg Tab) 25 mg PO Q6H PRN PRN Reason: Anxiety Last Admin: 05/30/21 03:31 Dose: 25 mg Documented by: Nystatin (Nystatin Topical Powder 15 Gm Bottle) 0 gm TOP Q6H PRN PRN Reason: Itching Last Admin: 05/30/21 20:26 Dose: 1 applicful Documented by: Ondansetron HCl (Ondansetron 4 Mg/2 Ml Sdv) 4 mg IV Q6H PRN PRN Reason: Nausea/Vomiting Last Admin: 05/24/21 16:15 Dose: 4 mg Documented by: Sodium Chloride (Sodium Chloride 0.9% 10 Ml Syringe) 10 ml FLUSH ASDIRECTED PRN PRN Reason: Keep Vein Open Last Admin: 05/23/21 10:20 Dose: 10 ml Documented by: Temazepam (Temazepam 15 Mg Cap) 15 mg PO BEDTIME PRN PRN Reason: Insomnia Last Admin: 05/30/21 22:41 Dose: 15 mg Documented by: Discontinued Medications Acetylcysteine (Acetylcysteine 20% 200 Mg/Ml 4 Ml Nebulizer Soln Sdv) 600 mg NEB ONETIME ONE Stop: 05/24/21 09:01 Last Admin: 05/24/21 08:48 Dose: 600 mg Documented by: Acetylcysteine (Acetylcysteine 20% 200 Mg/Ml 4 Ml Nebulizer Soln Sdv) 600 mg NEB TID [facility] Last Admin: 05/24/21 15:03 Dose: 600 mg Documented by: Acetylcysteine (Acetylcysteine 20% 200 Mg/Ml 4 Ml Nebulizer Soln Sdv) 600 mg NEB Q6H [facility] Last Admin: 05/26/21 14:22 Dose: 600 mg Documented by: Dexamethasone (Dexamethasone 4 Mg/Ml Sdv) 6 mg IVPUSH ONETIME ONE Stop: 05/23/21 12:50 Last Admin: 05/23/21 17:56 Dose: 6 mg Documented by: Dexamethasone (Dexamethasone 10 Mg/Ml Sdv) Confirm Administered Dose 10 mg .ROUTE .STK-MED ONE Stop: 05/23/21 16:24 Last Admin: 05/23/21 17:55 Dose: Not Given Documented by: Enoxaparin Sodium (Enoxaparin 40 Mg/0.4 Ml Syringe) 40 mg SUBCUT BID [facility] Last Admin: 05/28/21 08:08 Dose: 40 mg Documented by: Furosemide (Furosemide 20 Mg/2 Ml Vial) 20 mg IVPUSH ONETIME ONE Stop: 05/24/21 17:11 Last Admin: 05/24/21 17:25 Dose: 20 mg Documented by: Remdesivir 200 mg/ Sodium (Chloride) 250 mls @ 250 mls/hr IV ONETIME ONE Stop: 05/23/21 12:49 Last Admin: 05/23/21 17:51 Dose: 250 mls/hr Documented by: Remdesivir (Remdesivir) Confirm Administered Dose 100 mls @ as directed .ROUTE .STK-MED ONE Stop: 05/23/21 16:24 Last Admin: 05/23/21 18:10 Dose: Not Given Documented by: Sodium Chloride (Normal Saline) Confirm Administered Dose 250 mls @ as directed .ROUTE .STK-MED ONE Stop: 05/23/21 16:26 Last Admin: 05/23/21 18:13 Dose: Not Given Documented by: Remdesivir (Remdesivir) Confirm Administered Dose 100 mls @ as directed .ROUTE .STK-MED ONE Stop: 05/23/21 16:31 Last Admin: 05/23/21 18:13 Dose: Not Given Documented by: Remdesivir 100 mg/ Sodium (Chloride) 100 mls @ 100 mls/hr IV Q24H LIS Stop: 05/27/21 18:59 Last Admin: 05/27/21 18:14 Dose: 100 mls/hr Documented by: Tocilizumab 800 mg/ Sodium (Chloride) 100 mls @ 100 mls/hr IV ONETIME ONE Stop: 05/24/21 08:59 Last Admin: 05/24/21 09:38 Dose: 100 mls/hr Documented by: Sodium Chloride (Normal Saline) 500 mls @ 999 mls/hr IV .BOLUS ONE Stop: 05/25/21 19:45 Last Admin: 05/25/21 18:54 Dose: 999 mls/hr Documented by: Sodium Chloride (Sodium Chloride 3% Inhalation Soln 4 Ml Neb) 3 ml NEB Q6HRRT LIS Last Admin: 05/26/21 14:22 Dose: 3 ml Documented by: - Exam Quality Assessment: Supplemental Oxygen Urinary Catheter Total Time: 3Days 17Hours General: Alert, Oriented HEENT: Pupils Equal, Mucous Membr. Moist/[place] Neck: Supple Lungs: Normal Respiratory Effort, Decreased Breath Sounds Cardiovascular: Regular Rate, Regular Rhythm GI/Abdominal Exam: Normal Bowel Sounds, Soft, Non-Tender, No Distention Extremities: Normal Inspection, Non-Tender, No Pedal Edema, Normal Capillary Refill Skin: Warm, Dry, Intact Psy/Mental Status: Alert, Normal Affect, Normal Mood - Patient Data Lab Results Last 24 hrs: Laboratory Results - last 24 hr 05/30/21 Range/Units 06:22 Manual Slide Review Abnormal smear Result Diagrams: 05/30/21 06:22 05/30/21 06:22 Sepsis Event Note - Evaluation Sepsis Screening Result: Severe Sepsis Risk - Focused Exam Vital Signs: Vital Signs Temp Resp BP Pulse Ox Pulse Ox 05/31/21 08:05 91 L 05/31/21 05:00 88 L 05/31/21 04:00 97.4 F 26 H 124/62 93 L 05/31/21 03:00 88 L 05/31/21 02:00 89 L 05/31/21 01:00 90 L 05/31/21 00:00 97.3 F 24 H 158/73 H 91 L 05/30/21 23:00 91 L 05/30/21 22:00 91 L 05/30/21 21:03 91 L 05/30/21 21:00 89 L - Problem List & Annotations (1) Pneumonia due to COVID-19 virus SNOMED Code(s): 221929679115117953 Code(s): U07.1 - COVID-19; J12.82 - PNEUMONIA DUE TO CORONAVIRUS DISEASE 2019 Status: Acute Current Visit: Yes (2) Respiratory failure SNOMED Code(s): 187068976 Code(s): J96.90 - RESPIRATORY FAILURE, UNSP, UNSP W HYPOXIA OR HYPERCAPNIA Status: Acute Current Visit: Yes - Problem List Review Problem List Initiated/Reviewed/Updated: Yes - My Orders Last 24 Hours: My Active Orders 06/01/21 05:11 C-REACTIVE PROTEIN [CHEM] AM CBC WITH AUTO DIFF [HEME] AM CMP [COMPREHENSIVE METABOLIC PN,CMP] [CHEM] AM DD [D-DIMER QUANTITATIVE] [COAG] AM MAGNESIUM [CHEM] AM PHOSPHORUS [CHEM] AM - Plan Plan:: 26-year-old morbidly obese male admitted for respiratory failure secondary to COVID-19 pneumonia. COVID-19 pneumonia Respiratory failure * Presented to the [facility] with oxygen saturations in the 60s * Placed on high flow nasal cannula in the emergency department * CTA of the chest revealed Covid pneumonia but no obvious PE * CRP 10.6, and WBC 10.62 * Given remdesivir and dexamethasone in the emergency department * Received Actemra on 05/24 * Unvaccinated against Covid * Completed remdesivir * Dexamethasone day 7 of * CRP below 1 on 05/28/202105/24 wbc increase to 11, likely due to dex, left shift, with a mild increase in ddimer from 1.2 to 1.7. , phos increased, and will add mucinex and mucomyst x 1 due to sputum is so thick. cont in icu, RT, acapella, IS, high flow cont and try to wean but we are having difficulty with maining above 84 during exam. Cont remdesivir and dex. Actemra started 05/25/21 mucous plugging and worsening yesterday afternoon. Mucomyst and hypertonic saline given and one time dose of lasix 20 iv. he improved and was placed on bipap and slept overnight but did desaturate overnight but increased with arousal. Today he wants to sit up and wants to ty to go with out bipap and do highflow. he states things feel like there are loose and feel like he can cough things up today 05/26/21 being difficulty getting back to high flow. Patient is requiring 100% FiO2, BiPAP, 20/15, cooperating and proning, continues on remdesivir and Decadron, continues to do I-S, CTA was negative, and his weight is down from 4 25-4 16. Changes in medical treatment at this time. Most likely his body habitus is what is his largest contributor to not recovering quickly. 05/27/2021 Patient continues to be on BiPAP, but FiO2 has decreased to 90%. Patient continues to cooperate with proning. He is on remdesivir and dexamethasone, day 5. Lab work unremarkable. Continuing on I-S. He is starting to eat a little better, and drinks the protein shakes when able. Continue to monitor. 05/28/2021 Patient was able to wean down to high flow nasal cannula last night and this morning. Unfortunately, after having a shower he was unable to maintain saturations on high flow. Patient is back on BiPAP at this time. Also, his D- dimer increased to 3.34. His CT angiogram from May 23 was unsatisfactory to show PE in the small airways because of his body habitus, therefore I feel it is not beneficial to re-CT scan him. Patient will be started on Eliquis 5 mg twice daily. It is likely he is having micro emboli considering his D-dimer, obesity, sedentary because of his oxygenation, and a Covid status. We will continue to follow him closely over the next 24 hours and hopefully wean him back to high flow. 05/29/2021 Oxygenation support has improved. He is now on high flow nasal cannula at 60 L and 94%. Appetite is good and he has been eating 100% of his meals. Patient was placed on Eliquis yesterday at 5 mg twice daily. He has finished remdesivir. 05/30/2021 Patient continues on high flow nasal cannula at 60 L and 85% FiO2. Blood pressures this afternoon have been slightly elevated and continue to watch them. He will continue on Eliquis and dexamethasone. Continue following labs as below and respiratory therapy. 05/31/2021 Angel has made progress over the last 24 hours. Flow rate is down to 55 L/min and FiO2 is down to 80%. He is also feeling much better and able to ambulate to the bathroom without significant desaturation. Appetite is good and labs were not done today. Continue current treatment. Fatty liver * Mild elevation in AST and ALT, with normal alkaline phosphatase, and total bilirubin * Albumin decreased to 2.9, likely secondary to COVID-19 * CT scan of the chest demonstrated fatty liver Pt. will address with pcp * VTE prophylaxis with Eliquis 5 mg twice daily * CODE STATUS: Full code Plan * Patient still at high risk for worsening condition. * I-S, proning, respiratory therapy, albuterol, DuoNeb's, and other routine COVID therapy. * Continue on high flow/BiPAP as needed * DuoNeb every 4 hours as needed, albuterol MDI every 2 hours as needed * Recheck CBC, CMP, mag, Phos, CRP in the morning * Continue on dexamethasone for the full 10 days * Eliquis 5 mg twice daily. * Encouraging proning. * VTE prophylaxis with Eliquis * CODE STATUS full code
[2021-05-31] MEDS: Dexamethasone 4 MG Tab PO SCH (08:27)
[2021-05-31] MEDS: Apixaban 5 MG Tab PO SCH ×2 (08:27→20:33)
[2021-05-31] MEDS: guaiFENesin 600 MG Tab.ER PO SCH ×2 (08:27→20:32)
[2021-05-31] MEDS: Calcium Carbonate 500 MG Tab.Chew PO SCH ×2 (08:27→20:32)
[2021-05-31] MEDS: Albuterol 6.7 GM Inhaler INH PRN (17:34)
[2021-05-31] MEDS: Benzonatate 100 MG Cap PO PRN (20:33)
[2021-05-31] MEDS: Nystatin Topical Powder 15 GM Bottle TOP PRN (20:36)
[2021-05-31] MEDS: Acetaminophen/Codeine 300-30 MG Tab PO PRN (22:50)
[2021-05-31] MEDS: Temazepam 15 MG Cap PO PRN (22:50)
[2021-06-01] MEDS: Dexamethasone 4 MG Tab PO SCH (08:28)
[2021-06-01] MEDS: Calcium Carbonate 500 MG Tab.Chew PO SCH ×2 (08:28→21:50)
[2021-06-01] MEDS: guaiFENesin 600 MG Tab.ER PO SCH ×2 (08:28→21:50)
[2021-06-01] MEDS: Apixaban 5 MG Tab PO SCH ×2 (08:29→21:50)
[2021-06-01] MEDS: Albuterol/Ipratropium 3.0-0.5 MG/3 ML Neb Soln NEB PRN (08:41)
--- NOTE | 2021-06-01 11:57 | PCM.PN ---
- General Info Date of Service: 06/01/21 Admission Dx/Problem (Free Text): Admission Diagnosis/Problem Admission Diagnosis/Problem Hypoxia/covid pneumonia Subjective Update: Patient continues to improve. He has a good appetite, less short of breath, and improved cough. He is able to move around with a high flow without getting short of breath or dropping saturations. Functional Status: Reports: Pain Controlled - Review of Systems General: Reports: No Symptoms HEENT: Reports: No Symptoms Pulmonary: Reports: No Symptoms Cardiovascular: Reports: No Symptoms Gastrointestinal: Reports: No Symptoms Musculoskeletal: Reports: No Symptoms Psychiatric: Reports: No Symptoms - Patient Data Vitals - Most Recent: Last Vital Signs Temp 97.3 F 06/01/21 04:00 Pulse 80 05/31/21 16:00 Resp 26 H 06/01/21 04:00 BP 158/72 H 06/01/21 04:00 Pulse Ox 92 L 06/01/21 08:43 Weight - Most Recent: 412 lb 11.2 oz I&O - Last 24 Hours: Intake & Output 05/31/21 06/01/21 06/01/21 22:59 06:59 14:59 Intake Total 1430 800 Output Total 3 Balance 1427 800 Lab Results Last 24 Hours: Laboratory Results - last 24 hr 06/01/21 06/01/21 06/01/21 Range/Units 04:53 04:53 04:53 WBC 17.60 H (4.23-9.07) K/mm3 RBC 5.36 (4.63-6.08) M/mm3 Hgb 14.4 (13.7-17.5) gm/dl Hct 44.6 (40.1-51.0) % MCV 83.2 (79.0-92.2) fl MCH 26.9 (25.7-32.2) pg MCHC 32.3 (32.2-35.5) g/dl RDW Std Deviation 47.0 H (35.1-43.9) fL Plt Count 256 (163-337) K/mm3 MPV 8.7 L (9.4-12.3) fl Neut % (Auto) 65.2 (34.0-67.9) % Lymph % (Auto) 17.5 L (21.8-53.1) % [place] % (Auto) 8.5 (5.3-12.2) % Eos % (Auto) 1.9 (0.8-7.0) Baso % (Auto) 0.4 (0.1-1.2) % Neut # (Auto) 11.48 H (1.78-5.38) K/mm3 Lymph # (Auto) 3.08 (1.32-3.57) K/mm3 [place] # (Auto) 1.49 H (0.30-0.82) K/mm3 Eos # (Auto) 0.34 (0.04-0.54) K/mm3 Baso # (Auto) 0.07 (0.01-0.08) K/mm3 Manual Slide Review Abnormal smear D-Dimer, Quantitative 3.33 H (0.19-0.50) mg/L Sodium 140 (136-145) mEq/L Potassium 4.5 (3.5-5.1) mEq/L Chloride 105 (98-107) mEq/L Carbon Dioxide 25 (21-32) mEq/L Anion Gap 14.5 (5-15) BUN 19 H (7-18) mg/dL Creatinine 0.8 (0.7-1.3) mg/dL Est Cr Clr Drug Dosing 117.17 mL/min Estimated GFR (MDRD) > 60 (>60) mL/min BUN/Creatinine Ratio 23.8 H (14-18) Glucose 96 (70-99) mg/dL Calcium 8.5 (8.5-10.1) mg/dL Phosphorus 5.8 H (2.6-4.7) mg/dL Magnesium 2.2 (1.8-2.4) mg/dL Total Bilirubin 0.5 (0.2-1.0) mg/dL AST 51 H (15-37) U/L ALT 165 H (16-63) U/L Alkaline Phosphatase 79 (46-116) U/L C-Reactive Protein <0.2 (<1.0) mg/dL Total Protein 6.4 (6.4-8.2) g/dl Albumin 3.3 L (3.4-5.0) g/dl Globulin 3.1 gm/dL Albumin/Globulin Ratio 1.1 (1-2) Med Orders - Current: Current Medications Acetaminophen (Acetaminophen 325 Mg Tab) 650 mg PO Q4H PRN PRN Reason: Pain (Mild 1-3)/fever Acetaminophen/Codeine Phosphate (Acetaminophen/Codeine 300-30 Mg Tab) 2 tab PO Q4H PRN PRN Reason: Cough Last Admin: 05/31/21 22:50 Dose: 2 tab Documented by: Albuterol (Albuterol 6.7 Gm Inhaler) 0 gm INH Q4H PRN PRN Reason: Shortness of Breath Last Admin: 05/31/21 17:34 Dose: 2 puff Documented by: Albuterol/Ipratropium (Albuterol/Ipratropium 3.0-0.5 Mg/3 Ml Neb Soln) 3 ml NEB Q4H PRN PRN Reason: Shortness Of Breath/wheezing Last Admin: 06/01/21 08:41 Dose: 3 ml Documented by: Apixaban (Apixaban 5 Mg Tab) 5 mg PO BID [facility] Last Admin: 06/01/21 08:29 Dose: 5 mg Documented by: Benzonatate (Benzonatate 100 Mg Cap) 200 mg PO TID PRN PRN Reason: Cough Last Admin: 05/31/21 20:33 Dose: 200 mg Documented by: Calcium Carbonate/Glycine (Calcium Carbonate 500 Mg Tab.Chew) 500 mg PO BID [facility] [place] Last Admin: 06/01/21 08:28 Dose: 500 mg Documented by: Guaifenesin (Guaifenesin 600 Mg Tab.Er) 600 mg PO BID [facility] [place] Last Admin: 06/01/21 08:28 Dose: 600 mg Documented by: Hydroxyzine HCl (Hydroxyzine Hcl 25 Mg Tab) 25 mg PO Q6H PRN PRN Reason: Anxiety Last Admin: 05/30/21 03:31 Dose: 25 mg Documented by: Nystatin (Nystatin Topical Powder 15 Gm Bottle) 0 gm TOP Q6H PRN PRN Reason: Itching Last Admin: 05/31/21 20:36 Dose: 1 applicful Documented by: Ondansetron HCl (Ondansetron 4 Mg/2 Ml Sdv) 4 mg IV Q6H PRN PRN Reason: Nausea/Vomiting Last Admin: 05/24/21 16:15 Dose: 4 mg Documented by: Sodium Chloride (Sodium Chloride 0.9% 10 Ml Syringe) 10 ml FLUSH ASDIRECTED PRN PRN Reason: Keep Vein Open Last Admin: 05/23/21 10:20 Dose: 10 ml Documented by: Temazepam (Temazepam 15 Mg Cap) 15 mg PO BEDTIME PRN PRN Reason: Insomnia Last Admin: 05/31/21 22:50 Dose: 15 mg Documented by: Discontinued Medications Acetylcysteine (Acetylcysteine 20% 200 Mg/Ml 4 Ml Nebulizer Soln Sdv) 600 mg NEB ONETIME ONE Stop: 05/24/21 09:01 Last Admin: 05/24/21 08:48 Dose: 600 mg Documented by: Acetylcysteine (Acetylcysteine 20% 200 Mg/Ml 4 Ml Nebulizer Soln Sdv) 600 mg NEB TID [facility] [place] Last Admin: 05/24/21 15:03 Dose: 600 mg Documented by: Acetylcysteine (Acetylcysteine 20% 200 Mg/Ml 4 Ml Nebulizer Soln Sdv) 600 mg NEB Q6H [facility] [place] Last Admin: 05/26/21 14:22 Dose: 600 mg Documented by: Dexamethasone (Dexamethasone 4 Mg/Ml Sdv) 6 mg IVPUSH ONETIME ONE Stop: 05/23/21 12:50 Last Admin: 05/23/21 17:56 Dose: 6 mg Documented by: Dexamethasone (Dexamethasone 10 Mg/Ml Sdv) Confirm Administered Dose 10 mg .ROUTE .STK-MED ONE Stop: 05/23/21 16:24 Last Admin: 05/23/21 17:55 Dose: Not Given Documented by: Dexamethasone (Dexamethasone 4 Mg Tab) 6 mg PO DAILY [facility] [place] Stop: 06/01/21 09:01 Last Admin: 06/01/21 08:28 Dose: 6 mg Documented by: Enoxaparin Sodium (Enoxaparin 40 Mg/0.4 Ml Syringe) 40 mg SUBCUT BID [facility] [place] Last Admin: 05/28/21 08:08 Dose: 40 mg Documented by: Furosemide (Furosemide 20 Mg/2 Ml Vial) 20 mg IVPUSH ONETIME ONE Stop: 05/24/21 17:11 Last Admin: 05/24/21 17:25 Dose: 20 mg Documented by: Remdesivir 200 mg/ Sodium (Chloride) 250 mls @ 250 mls/hr IV ONETIME ONE Stop: 05/23/21 12:49 Last Admin: 05/23/21 17:51 Dose: 250 mls/hr Documented by: Remdesivir (Remdesivir) Confirm Administered Dose 100 mls @ as directed .ROUTE .STK-MED ONE Stop: 05/23/21 16:24 Last Admin: 05/23/21 18:10 Dose: Not Given Documented by: Sodium Chloride (Normal Saline) Confirm Administered Dose 250 mls @ as directed .ROUTE .STK-MED ONE Stop: 05/23/21 16:26 Last Admin: 05/23/21 18:13 Dose: Not Given Documented by: Remdesivir (Remdesivir) Confirm Administered Dose 100 mls @ as directed .ROUTE .STK-MED ONE Stop: 05/23/21 16:31 Last Admin: 05/23/21 18:13 Dose: Not Given Documented by: Remdesivir 100 mg/ Sodium (Chloride) 100 mls @ 100 mls/hr IV Q24H [facility] [place] Stop: 05/27/21 18:59 Last Admin: 05/27/21 18:14 Dose: 100 mls/hr Documented by: Tocilizumab 800 mg/ Sodium (Chloride) 100 mls @ 100 mls/hr IV ONETIME ONE Stop: 05/24/21 08:59 Last Admin: 05/24/21 09:38 Dose: 100 mls/hr Documented by: Sodium Chloride (Normal Saline) 500 mls @ 999 mls/hr IV .BOLUS ONE Stop: 05/25/21 19:45 Last Admin: 05/25/21 18:54 Dose: 999 mls/hr Documented by: Sodium Chloride (Sodium Chloride 3% Inhalation Soln 4 Ml Neb) 3 ml NEB Q6HRRT [facility] Last Admin: 05/26/21 14:22 Dose: 3 ml Documented by: - Exam Quality Assessment: Supplemental Oxygen Urinary Catheter Total Time: 3Days 17Hours General: Alert, Oriented HEENT: Pupils Equal, Mucous Membr. Moist/[place] Neck: Supple Lungs: Normal Respiratory Effort, Decreased Breath Sounds, Crackles (Minimal crackles) Cardiovascular: Regular Rate, Regular Rhythm GI/Abdominal Exam: Normal Bowel Sounds, Soft, Non-Tender, No Distention Extremities: Normal Inspection, Normal Range of Motion, No Pedal Edema, Normal Capillary Refill Skin: Warm, Dry, Intact Psy/Mental Status: Alert, Normal Affect, Normal Mood - Patient Data Lab Results Last 24 hrs: Laboratory Results - last 24 hr 06/01/21 06/01/21 06/01/21 Range/Units 04:53 04:53 04:53 WBC 17.60 H (4.23-9.07) K/mm3 RBC 5.36 (4.63-6.08) M/mm3 Hgb 14.4 (13.7-17.5) gm/dl Hct 44.6 (40.1-51.0) % MCV 83.2 (79.0-92.2) fl MCH 26.9 (25.7-32.2) pg MCHC 32.3 (32.2-35.5) g/dl RDW Std Deviation 47.0 H (35.1-43.9) fL Plt Count 256 (163-337) K/mm3 MPV 8.7 L (9.4-12.3) fl Neut % (Auto) 65.2 (34.0-67.9) % Lymph % (Auto) 17.5 L (21.8-53.1) % [place] % (Auto) 8.5 (5.3-12.2) % Eos % (Auto) 1.9 (0.8-7.0) Baso % (Auto) 0.4 (0.1-1.2) % Neut # (Auto) 11.48 H (1.78-5.38) K/mm3 Lymph # (Auto) 3.08 (1.32-3.57) K/mm3 [place] # (Auto) 1.49 H (0.30-0.82) K/mm3 Eos # (Auto) 0.34 (0.04-0.54) K/mm3 Baso # (Auto) 0.07 (0.01-0.08) K/mm3 Manual Slide Review Abnormal smear D-Dimer, Quantitative 3.33 H (0.19-0.50) mg/L Sodium 140 (136-145) mEq/L Potassium 4.5 (3.5-5.1) mEq/L Chloride 105 (98-107) mEq/L Carbon Dioxide 25 (21-32) mEq/L Anion Gap 14.5 (5-15) BUN 19 H (7-18) mg/dL Creatinine 0.8 (0.7-1.3) mg/dL Est Cr Clr Drug Dosing 117.17 mL/min Estimated GFR (MDRD) > 60 (>60) mL/min BUN/Creatinine Ratio 23.8 H (14-18) Glucose 96 (70-99) mg/dL Calcium 8.5 (8.5-10.1) mg/dL Phosphorus 5.8 H (2.6-4.7) mg/dL Magnesium 2.2 (1.8-2.4) mg/dL Total Bilirubin 0.5 (0.2-1.0) mg/dL AST 51 H (15-37) U/L ALT 165 H (16-63) U/L Alkaline Phosphatase 79 (46-116) U/L C-Reactive Protein <0.2 (<1.0) mg/dL Total Protein 6.4 (6.4-8.2) g/dl Albumin 3.3 L (3.4-5.0) g/dl Globulin 3.1 gm/dL Albumin/Globulin Ratio 1.1 (1-2) Result Diagrams: 06/01/21 04:53 06/01/21 04:53 Sepsis Event Note - Evaluation Sepsis Screening Result: Sepsis Risk - Focused Exam Vital Signs: Vital Signs Temp Resp BP Pulse Ox Pulse Ox 06/01/21 08:43 92 L 06/01/21 06:00 89 L 06/01/21 05:00 90 L 06/01/21 04:00 97.3 F 26 H 158/72 H 90 L 06/01/21 03:00 90 L 06/01/21 02:00 88 L 06/01/21 01:00 93 L 06/01/21 00:00 97.6 F 24 H 145/77 H 92 L - Problem List & Annotations (1) Pneumonia due to COVID-19 virus SNOMED Code(s): 485738655408078444 Code(s): U07.1 - COVID-19; J12.82 - PNEUMONIA DUE TO CORONAVIRUS DISEASE 2019 Status: Acute Current Visit: Yes (2) Respiratory failure SNOMED Code(s): 284121210 Code(s): J96.90 - RESPIRATORY FAILURE, UNSP, UNSP W HYPOXIA OR HYPERCAPNIA Status: Acute Current Visit: Yes - Problem List Review Problem List Initiated/Reviewed/Updated: Yes - My Orders Last 24 Hours: My Active Orders 06/01/21 Lunch Regular Diet [DIET] - Plan Plan:: 26-year-old morbidly obese male admitted for respiratory failure secondary to COVID-19 pneumonia. COVID-19 pneumonia Respiratory failure * Presented to the [facility] walk[facility]in [facility] with oxygen saturations in the 60s * Placed on high flow nasal cannula in the emergency department * CTA of the chest revealed Covid pneumonia but no obvious PE * CRP 10.6, and WBC 10.62 * Given remdesivir and dexamethasone in the emergency department * Received Actemra on 05/24 * Unvaccinated against Covid * Completed remdesivir * Dexamethasone day 7 of 10 * CRP below 1 on 05/28/202105/24 wbc increase to 11, likely due to dex, left shift, with a mild increase in ddimer from 1.2 to 1.7. , phos increased, and will add mucinex and mucomyst x 1 due to sputum is so thick. cont in icu, RT, acapella, IS, high flow cont and try to wean but we are having difficulty with maining above 84 during exam. Cont remdesivir and dex. Actemra started 05/25/21 mucous plugging and worsening yesterday afternoon. Mucomyst and hypertonic saline given and one time dose of lasix 20 iv. he improved and was placed on bipap and slept overnight but did desaturate overnight but increased with arousal. Today he wants to sit up and wants to ty to go with out bipap and do highflow. he states things feel like there are loose and feel like he can cough things up today 05/26/21 being difficulty getting back to high flow. Patient is requiring 100% FiO2, BiPAP, , cooperating and proning, continues on remdesivir and Decadron, continues to do I-S, CTA was negative, and his weight is down from 4 25-4 16. Changes in medical treatment at this time. Most likely his body habitus is what is his largest contributor to not recovering quickly. 05/27/2021 Patient continues to be on BiPAP, but FiO2 has decreased to 90%. Patient continues to cooperate with proning. He is on remdesivir and dexamethasone, day 5. Lab work unremarkable. Continuing on I-S. He is starting to eat a little better, and drinks the protein shakes when able. Continue to monitor. 05/28/2021 Patient was able to wean down to high flow nasal cannula last night and this morning. Unfortunately, after having a shower he was unable to maintain saturations on high flow. Patient is back on BiPAP at this time. Also, his D- dimer increased to 3.34. His CT angiogram from May 23 was unsatisfactory to show PE in the small airways because of his body habitus, therefore I feel it is not beneficial to re-CT scan him. Patient will be started on Eliquis 5 mg twice daily. It is likely he is having micro emboli considering his D-dimer, obesity, sedentary because of his oxygenation, and a Covid status. We will continue to follow him closely over the next 24 hours and hopefully wean him back to high flow. 05/29/2021 Oxygenation support has improved. He is now on high flow nasal cannula at 60 L and 94%. Appetite is good and he has been eating 100% of his meals. Patient was placed on Eliquis yesterday at 5 mg twice daily. He has finished remdesivir. 05/30/2021 Patient continues on high flow nasal cannula at 60 L and 85% FiO2. Blood pressures this afternoon have been slightly elevated and continue to watch them. He will continue on Eliquis and dexamethasone. Continue following labs as below and respiratory therapy. 05/31/2021 Angel has made progress over the last 24 hours. Flow rate is down to 55 L/min and FiO2 is down to 80%. He is also feeling much better and able to ambulate to the bathroom without significant desaturation. Appetite is good and labs were not done today. Continue current treatment. 06/01/2021 Continue to do well. Decreased respiratory effort and improvement in his high flow. He is down to 40 L and 50%. Plan is to get him on nasal cannula within the next 24 hours. Fatty liver * Mild elevation in AST and ALT, with normal alkaline phosphatase, and total bilirubin * Albumin decreased to 2.9, likely secondary to COVID-19 * CT scan of the chest demonstrated fatty liver Pt. will address with pcp * VTE prophylaxis with Eliquis 5 mg twice daily * CODE STATUS: Full code Plan * Downgrade to medical floor * I-S, proning, respiratory therapy, albuterol, DuoNeb's, and other routine COVID therapy. * Continue on high flow/BiPAP as needed. Try to wean to nasal cannula in the next 24 hours * DuoNeb every 4 hours as needed, albuterol MDI every 2 hours as needed * Recheck CBC, CMP, mag, Phos, CRP in the morning * Continue on dexamethasone for the full 10 days * Eliquis 5 mg twice daily. * JESSICA Maldonado * VTE prophylaxis with Eliquis * CODE STATUS full code
[2021-06-01] MEDS: Temazepam 15 MG Cap PO PRN (22:15)
[2021-06-02] MEDS: guaiFENesin 600 MG Tab.ER PO SCH ×2 (09:28→21:29)
[2021-06-02] MEDS: Apixaban 5 MG Tab PO SCH ×2 (09:28→21:29)
[2021-06-02] MEDS: Calcium Carbonate 500 MG Tab.Chew PO SCH ×2 (09:29→21:29)
--- NOTE | 2021-06-02 14:02 | PCM.PN ---
- General Info Date of Service: 06/02/21 Admission Dx/Problem (Free Text): Admission Diagnosis/Problem Admission Diagnosis/Problem Hypoxia/covid pneumonia Subjective Update: Patient has been weaned down to 6 L nasal cannula. He continues to state he is feeling well and has significantly improved respiratory status. Functional Status: Reports: Pain Controlled - Review of Systems General: Reports: No Symptoms HEENT: Reports: No Symptoms Pulmonary: Reports: No Symptoms Cardiovascular: Reports: No Symptoms Gastrointestinal: Reports: No Symptoms Musculoskeletal: Reports: No Symptoms - Patient Data Vitals - Most Recent: Last Vital Signs Temp 98.2 F 06/02/21 13:42 Pulse 86 06/02/21 13:42 Resp 32 H 06/02/21 13:42 BP 134/74 06/02/21 13:42 Pulse Ox 93 L 06/02/21 12:00 Weight - Most Recent: 410 lb I&O - Last 24 Hours: Intake & Output 06/01/21 06/02/21 06/02/21 22:59 06:59 14:59 Intake Total 2200 640 Balance 2200 640 Med Orders - Current: Current Medications Acetaminophen (Acetaminophen 325 Mg Tab) 650 mg PO Q4H PRN PRN Reason: Pain (Mild 1-3)/fever Acetaminophen/Codeine Phosphate (Acetaminophen/Codeine 300-30 Mg Tab) 2 tab PO Q4H PRN PRN Reason: Cough Last Admin: 05/31/21 22:50 Dose: 2 tab Documented by: Albuterol (Albuterol 6.7 Gm Inhaler) 0 gm INH Q4H PRN PRN Reason: Shortness of Breath Last Admin: 05/31/21 17:34 Dose: 2 puff Documented by: Albuterol/Ipratropium (Albuterol/Ipratropium 3.0-0.5 Mg/3 Ml Neb Soln) 3 ml NEB Q4H PRN PRN Reason: Shortness Of Breath/wheezing Last Admin: 06/01/21 08:41 Dose: 3 ml Documented by: Apixaban (Apixaban 5 Mg Tab) 5 mg PO BID LIS Last Admin: 06/02/21 09:28 Dose: 5 mg Documented by: Benzonatate (Benzonatate 100 Mg Cap) 200 mg PO TID PRN PRN Reason: Cough Last Admin: 05/31/21 20:33 Dose: 200 mg Documented by: Calcium Carbonate/Glycine (Calcium Carbonate 500 Mg Tab.Chew) [address] [facility] Last Admin: 06/02/21 09:29 Dose: 500 mg Documented by: Guaifenesin (Guaifenesin 600 Mg Tab.Er) [address] [facility] Last Admin: 06/02/21 09:28 Dose: 600 mg Documented by: Hydroxyzine HCl (Hydroxyzine Hcl 25 Mg Tab) 25 mg PO Q6H PRN PRN Reason: Anxiety Last Admin: 05/30/21 03:31 Dose: 25 mg Documented by: Nystatin (Nystatin Topical Powder 15 Gm Bottle) 0 gm TOP Q6H PRN PRN Reason: Itching Last Admin: 05/31/21 20:36 Dose: 1 applicful Documented by: Ondansetron HCl (Ondansetron 4 Mg/2 Ml Sdv) 4 mg IV Q6H PRN PRN Reason: Nausea/Vomiting Last Admin: 05/24/21 16:15 Dose: 4 mg Documented by: Sodium Chloride (Sodium Chloride 0.9% 10 Ml Syringe) 10 ml FLUSH ASDIRECTED PRN PRN Reason: Keep Vein Open Last Admin: 05/23/21 10:20 Dose: 10 ml Documented by: Temazepam (Temazepam 15 Mg Cap) 15 mg PO BEDTIME PRN PRN Reason: Insomnia Last Admin: 06/01/21 22:15 Dose: 15 mg Documented by: Discontinued Medications Acetylcysteine (Acetylcysteine 20% 200 Mg/Ml 4 Ml Nebulizer Soln Sdv) 600 mg NEB ONETIME ONE Stop: 05/24/21 09:01 Last Admin: 05/24/21 08:48 Dose: 600 mg Documented by: Acetylcysteine (Acetylcysteine 20% 200 Mg/Ml 4 Ml Nebulizer Soln Sdv) [address] [facility] Last Admin: 05/24/21 15:03 Dose: 600 mg Documented by: Acetylcysteine (Acetylcysteine 20% 200 Mg/Ml 4 Ml Nebulizer Soln Sdv) [address] [facility] Last Admin: 05/26/21 14:22 Dose: 600 mg Documented by: Dexamethasone (Dexamethasone 4 Mg/Ml Sdv) 6 mg IVPUSH ONETIME ONE Stop: 05/23/21 12:50 Last Admin: 05/23/21 17:56 Dose: 6 mg Documented by: Dexamethasone (Dexamethasone 10 Mg/Ml Sdv) Confirm Administered Dose 10 mg .R OUTE .STK-MED ONE Stop: 05/23/21 16:24 Last Admin: 05/23/21 17:55 Dose: Not Given Documented by: Dexamethasone (Dexamethasone 4 Mg Tab) 6 mg PO DAILY LIS Stop: 06/01/21 09:01 Last Admin: 06/01/21 08:28 Dose: 6 mg Documented by: Enoxaparin Sodium (Enoxaparin 40 Mg/0.4 Ml Syringe) [address] [facility] Last Admin: 05/28/21 08:08 Dose: 40 mg Documented by: Furosemide (Furosemide 20 Mg/2 Ml Vial) 20 mg IVPUSH ONETIME ONE Stop: 05/24/21 17:11 Last Admin: 05/24/21 17:25 Dose: 20 mg Documented by: Remdesivir 200 mg/ Sodium (Chloride) 250 mls @ 250 mls/hr IV ONETIME ONE Stop: 05/23/21 12:49 Last Admin: 05/23/21 17:51 Dose: 250 mls/hr Documented by: Remdesivir (Remdesivir) Confirm Administered Dose 100 mls @ as directed .ROUTE .STK-MED ONE Stop: 05/23/21 16:24 Last Admin: 05/23/21 18:10 Dose: Not Given Documented by: Sodium Chloride (Normal Saline) Confirm Administered Dose 250 mls @ as directed .ROUTE .STK-MED ONE Stop: 05/23/21 16:26 Last Admin: 05/23/21 18:13 Dose: Not Given Documented by: Remdesivir (Remdesivir) Confirm Administered Dose 100 mls @ as directed .ROUTE .STK-MED ONE Stop: 05/23/21 16:31 Last Admin: 05/23/21 18:13 Dose: Not Given Documented by: Remdesivir 100 mg/ Sodium (Chloride) 100 mls @ 100 mls/hr IV Q24H LIS Stop: 05/27/21 18:59 Last Admin: 05/27/21 18:14 Dose: 100 mls/hr Documented by: Tocilizumab 800 mg/ Sodium (Chloride) 100 mls @ 100 mls/hr IV ONETIME ONE Stop: 05/24/21 08:59 Last Admin: 05/24/21 09:38 Dose: 100 mls/hr Documented by: Sodium Chloride (Normal Saline) 500 mls @ 999 mls/hr IV .BOLUS ONE Stop: 05/25/21 19:45 Last Admin: 05/25/21 18:54 Dose: 999 mls/hr Documented by: Sodium Chloride (Sodium Chloride 3% Inhalation Soln 4 Ml Neb) 3 ml NEB Q6HRRT LIS Last Admin: 05/26/21 14:22 Dose: 3 ml Documented by: - Exam Quality Assessment: Supplemental Oxygen Urinary Catheter Total Time: 3Days 17Hours General: Alert, Oriented HEENT: Pupils Equal Neck: Supple Lungs: Normal Respiratory Effort, Decreased Breath Sounds, Crackles Cardiovascular: Regular Rate, Regular Rhythm GI/Abdominal Exam: Normal Bowel Sounds, Soft, Non-Tender, No Distention Extremities: Normal Inspection, Normal Range of Motion, Non-Tender, No Pedal Edema, Normal Capillary Refill Peripheral Pulses: 2+: Dorsalis Pedis (L), Dorsalis Pedis (R) Skin: Warm, Dry, Intact Psy/Mental Status: Alert, Normal Affect, Normal Mood - Patient Data Result Diagrams: 06/01/21 04:53 06/01/21 04:53 Sepsis Event Note - Evaluation Sepsis Screening Result: No Definite Risk - Focused Exam Vital Signs: Vital Signs Temp Pulse Resp BP Pulse Ox Pulse Ox 06/02/21 13:42 98.2 F 86 32 H 134/74 06/02/21 12:45 98.2 F 86 18 144/82 H 06/02/21 12:00 93 L 06/02/21 08:00 88 L 06/02/21 07:00 97.9 F 81 16 160/86 H 93 L - Problem List & Annotations (1) Pneumonia due to COVID-19 virus SNOMED Code(s): 401049266580508515 Code(s): U07.1 - COVID-19; J12.82 - PNEUMONIA DUE TO CORONAVIRUS DISEASE 2019 Status: Acute Current Visit: Yes (2) Respiratory failure SNOMED Code(s): 358607182 Code(s): J96.90 - RESPIRATORY FAILURE, UNSP, UNSP W HYPOXIA OR HYPERCAPNIA Status: Acute Current Visit: Yes - Problem List Review Problem List Initiated/Reviewed/Updated: Yes - Plan Plan:: 26-year-old morbidly obese male admitted for respiratory failure secondary to COVID-19 pneumonia. COVID-19 pneumonia Respiratory failure * Presented to the [place] walk-in clinic with oxygen saturations in the 60s * Placed on high flow nasal cannula in the emergency department * CTA of the chest revealed Covid pneumonia but no obvious PE * CRP 10.6, and WBC 10.62 * Given remdesivir and dexamethasone in the emergency department * Received Actemra on 05/24 * Unvaccinated against Covid * Completed remdesivir * Dexamethasone day 7 * CRP below 1 on 05/28/202105/24 wbc increase to 11, likely due to dex, left shift, with a mild increase in ddimer from 1.2 to 1.7. , phos increased, and will add mucinex and mucomyst x 1 due to sputum is so thick. cont in icu, RT, acapella, IS, high flow cont and try to wean but we are having difficulty with maining above 84 during exam. Cont remdesivir and dex. Actemra started 05/25/21 mucous plugging and worsening yesterday afternoon. Mucomyst and hypertonic saline given and one time dose of lasix 20 iv. he improved and was placed on bipap and slept overnight but did desaturate overnight but increased with arousal. Today he wants to sit up and wants to ty to go with out bipap and do highflow. he states things feel like there are loose and feel like he can cough things up today 05/26/21 being difficulty getting back to high flow. Patient is requiring 100% FiO2, BiPAP, 20/15, cooperating and proning, continues on remdesivir and Decadron, continues to do I-S, CTA was negative, and his weight is down from 4 25-4 16. Changes in medical treatment at this time. Most likely his body habitus is what is his largest contributor to not recovering quickly. 05/27/2021 Patient continues to be on BiPAP, but FiO2 has decreased to 90%. Patient continues to cooperate with proning. He is on remdesivir and dexamethasone, day 5. Lab work unremarkable. Continuing on I-S. He is starting to eat a little better, and drinks the protein shakes when able. Continue to monitor. 05/28/2021 Patient was able to wean down to high flow nasal cannula last night and this morning. Unfortunately, after having a shower he was unable to maintain saturations on high flow. Patient is back on BiPAP at this time. Also, his D- dimer increased to 3.34. His CT angiogram from May 23 was unsatisfactory to show PE in the small airways because of his body habitus, therefore I feel it is not beneficial to re-CT scan him. Patient will be started on Eliquis 5 mg twice daily. It is likely he is having micro emboli considering his D-dimer, obesity, sedentary because of his oxygenation, and a Covid status. We will continue to follow him closely over the next 24 hours and hopefully wean him back to high flow. 05/29/2021 Oxygenation support has improved. He is now on high flow nasal cannula at 60 L and 94%. Appetite is good and he has been eating 100% of his meals. Patient was placed on Eliquis yesterday at 5 mg twice daily. He has finished remdesivir. 05/30/2021 Patient continues on high flow nasal cannula at 60 L and 85% FiO2. Blood pressures this afternoon have been slightly elevated and continue to watch them. He will continue on Eliquis and dexamethasone. Continue following labs as below and respiratory therapy. 05/31/2021 Angel has made progress over the last 24 hours. Flow rate is down to 55 L/min and FiO2 is down to 80%. He is also feeling much better and able to ambulate to the bathroom without significant desaturation. Appetite is good and labs were not done today. Continue current treatment. 06/01/2021 Continue to do well. Decreased respiratory effort and improvement in his high flow. He is down to 40 L and 50%. Plan is to get him on nasal cannula within the next 24 hours. 06/02/2021 Patient has improved significantly and now is on 6 L nasal cannula. We will continue to wean him and discharged home when he is between 3 and 4 L/min nasal cannula. Fatty liver * Mild elevation in AST and ALT, with normal alkaline phosphatase, and total bilirubin * Albumin decreased to 2.9, likely secondary to COVID-19 * CT scan of the chest demonstrated fatty liver Pt. will address with pcp * VTE prophylaxis with Eliquis 5 mg twice daily * CODE STATUS: Full code Plan * I-S, proning, respiratory therapy, albuterol, DuoNeb's, and other routine COVID therapy. * Continue nasal cannula as tolerated * DuoNeb every 4 hours as needed, albuterol MDI every 2 hours as needed * Recheck CBC, CMP, mag, Phos, CRP in the morning * Continue on dexamethasone for the full 10 days * Eliquis 5 mg twice daily. * JESSICA Maldonado * VTE prophylaxis with Eliquis * CODE STATUS full code * Plan discharge home when at 3 to 4 L/min of O2
[2021-06-02] MEDS: Albuterol/Ipratropium 3.0-0.5 MG/3 ML Neb Soln NEB PRN (21:16)
[2021-06-02] MEDS: Temazepam 15 MG Cap PO PRN (21:29)
[2021-06-03] MEDS: guaiFENesin 600 MG Tab.ER PO SCH (08:24)
[2021-06-03] MEDS: Apixaban 5 MG Tab PO SCH (08:24)
[2021-06-03] MEDS: Calcium Carbonate 500 MG Tab.Chew PO SCH (08:24)
[2021-06-03] MEDS: Albuterol 6.7 GM Inhaler INH PRN (09:02)
--- NOTE | 2021-06-03 15:11 | PCM.DCSUM1 ---
Discharge Summary - Hospital Course HPI Initial Comments: 26-year-old morbidly obese male presents to the emergency department from the walk-in clinic with oxygen saturations in the 60s. Patient states that he first started developing symptoms of Covid on May 06 and was tested positive on the . He developed worsening shortness of breath, fatigue, and cough over the last few days until his parents finally told him to go to the walk-in clinic. Patient states he has not had vaccination against Covid. He has no other chronic medical problems and does not smoke. He does state he has had off-and-on fevers, loss of taste and smell, and mild nausea. CT angio of the chest showed less than optimal pulmonary angiogram. No definite findings of pulmonary embolism are seen within the main or proximal segmental branches. Diffuse parenchymal densities within both sides of the chest highly suspicious for prominent COVID-19 Pneumonia. Degenerative change within the spine is noted. Fatty infiltration within the liver. Lab work was significant for C-reactive protein of 10.6, D-dimer 1.22, and white count of 10.62. Otherwise no significant lab findings. Patient was placed on high flow nasal cannula and transferred to the ICU. Assessment/Plan Comment:: 26-year-old morbidly obese male admitted for respiratory failure secondary to COVID-19 pneumonia. COVID-19 pneumonia Respiratory failure * Presented to the [facility] clinic with oxygen saturations in the 60s * Placed on high flow nasal cannula in the emergency department * CTA of the chest revealed Covid pneumonia but no obvious PE * CRP 10.6, and WBC 10.62 * Given remdesivir and dexamethasone in the emergency department * Unvaccinated against Covid Fatty liver * Mild elevation in AST with normal ALT, alkaline phosphatase, and total bilirubin * Albumin slightly low at 3.1, likely secondary to COVID-19 * CT scan of the chest demonstrated fatty liver Plan * Admit to ICU * RT, Acapella, incentive spirometer * Continue high flow nasal cannula to keep oxygen saturations between 88 and 94% * Continue remdesivir and dexamethasone * I discussed Actemra with the patient and he agreed. It may not be available tonight, but he can get it first thing in the morning I spoke with patient to provide information about [facility] of Actemra. I offered them the "fax sheet for patients and caregivers" for Actemra to read and review. I stated the therapy has been approved by an emergency use authorization process and has not been fully FDA reviewed or approved. I share potential risks from the therapy including allergic reactions, increased risk of secondary infections, or other reactions. Discussed there are other potential treatment options that are currently not FDA approved to treat COVID-19. Offered opportunity to ask questions and all questions were answered. Patient voiced understanding and agreed to proceed with treatment. * No obvious need for antibiotics at this time * Follow CBC, CMP, mag, Phos, D-dimer * He would benefit from dietary consult * VTE prophylaxis with Lovenox 40 mg twice daily because of his size * CODE STATUS: Full code - Mortality Measure Prognosis:: Good Diagnosis: Stroke: No - Discharge Data Discharge Date: 06/03/21 Discharge Disposition: Home, Self-Care 01 Condition: Good - Referral to Home Health Primary Care Physician: Tara Teresa MD - Discharge Diagnosis/Problem(s) (1) Pneumonia due to COVID-19 virus SNOMED Code(s): 365248617725350191 ICD Code: U07.1 - COVID-19; J12.82 - PNEUMONIA DUE TO CORONAVIRUS DISEASE 2018 Status: Acute (2) Respiratory failure SNOMED Code(s): 585540360 ICD Code: J96.90 - RESPIRATORY FAILURE, UNSP, UNSP W HYPOXIA OR HYPERCAPNIA Status: Acute - Patient Summary/Data Hospital Course: 05/24 wbc increase to 11, likely due to dex, left shift, with a mild increase in ddimer from 1.2 to 1.7. , phos increased, and will add mucinex and mucomyst x 1 due to sputum is so thick. cont in icu, RT, acapella, IS, high flow cont and try to wean but we are having difficulty with maining above 84 during exam. Cont remdesivir and dex. Actemra started 05/25/21 mucous plugging and worsening yesterday afternoon. Mucomyst and hypertonic saline given and one time dose of lasix 20 iv. he improved and was placed on bipap and slept overnight but did desaturate overnight but increased with arousal. Today he wants to sit up and wants to ty to go with out bipap and do highflow. he states things feel like there are loose and feel like he can cough things up today 05/26/21 being difficulty getting back to high flow. Patient is requiring 100% FiO2, BiPAP, , cooperating and proning, continues on remdesivir and Decadron, continues to do I-S, CTA was negative, and his weight is down from 4 25-4 16. Changes in medical treatment at this time. 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 05/27/2021 Patient continues to be on BiPAP, but FiO2 has decreased to 90%. Patient continues to cooperate with proning. He is on remdesivir and dexamethasone, day 5. Lab work unremarkable. Continuing on I-S. He is starting to eat a little better, and drinks the protein shakes when able. Continue to monitor. 05/28/2021 Patient was able to wean down to high flow nasal cannula last night and this morning. Unfortunately, after having a shower he was unable to maintain saturations on high flow. Patient is back on BiPAP at this time. Also, his D- dimer increased to 3.34. His CT angiogram from May 23 was unsatisfactory to show PE in the small airways because of his body habitus, therefore I feel it is not beneficial to re-CT scan him. Patient will be started on Eliquis 5 mg twice daily. It is likely he is having micro emboli considering his D-dimer, obesity, sedentary because of his oxygenation, and a Covid status. We will continue to follow him closely over the next 24 hours and hopefully wean him back to high flow. 05/29/2021 Oxygenation support has improved. He is now on high flow nasal cannula at 60 L and 94%. Appetite is good and he has been eating 100% of his meals. Patient was placed on Eliquis yesterday at 5 mg twice daily. He has finished remdesivir. 05/30/2021 Patient continues on high flow nasal cannula at 60 L and 85% FiO2. Blood pressures this afternoon have been slightly elevated and continue to watch them. He will continue on Eliquis and dexamethasone. Continue following labs as below and respiratory therapy. 05/31/2021 Angel has made progress over the last 24 hours. Flow rate is down to 55 L/min and FiO2 is down to 80%. He is also feeling much better and able to ambulate to the bathroom without significant desaturation. Appetite is good and labs were not done today. Continue current treatment. 06/01/2021 Continue to do well. Decreased respiratory effort and improvement in his high flow. He is down to 40 L and 50%. Plan is to get him on nasal cannula within the next 24 hours. 06/02/2021 Patient has improved significantly and now is on 6 L nasal cannula. We will continue to wean him and discharged home when he is between 3 and 4 L/min nasal cannula. - Patient Instructions Diet: Usual Diet as Tolerated Activity: As Tolerated Driving: May Drive Today Showering/Bathing: May Shower Notify Provider of: Fever Other/Special Instructions: Do not return to work until you are off oxygen and able to maintain your oxygen saturations above 92%. Follow up with your PCP on June 14. Your appointment has been made in advance. No strenous exercise or activity until cleared by your PCP. - Discharge Plan *PRESCRIPTION DRUG MONITORING PROGRAM REVIEWED*: No *COPY OF PRESCRIPTION DRUG MONITORING REPORT IN PATIENT JOEY: No Home Medications: Home Meds . [No Known Home Meds] 05/23/21 [History] Oxygen Therapy Mode: Nasal Cannula Oxygen Flow Rate (L/min): 3 Maintain SpO2% greater than: 90 Patient Handouts: COVID-19 Frequently Asked Questions, COVID-19, 10 Things You Can Do to Manage Your COVID-19 Symptoms at Home - [facility] (03/05/2021), Home Oxygen Use, Adult, Apixaban oral tablets, Sepsis, Self Care, Adult Forms: ED Department Discharge Referrals: Tara Teresa MD [Primary Care Provider] - 06/14/21 9:10 am (This is your check in time to register.) - Discharge Summary/Plan Comment DC Time >30 min.: Yes Total # of Minutes for Discharge Time: 35 min - General Info Date of Service: 06/04/21 Admission Dx/Problem (Free Text: Admission Diagnosis/Problem Admission Diagnosis/Problem Hypoxia/covid pneumonia Subjective Update: Patient states he is doing well and feels much better. He is on 2 to 3 L without getting short of breath. Oxygen saturations are in the low 90s on 2 to 3 L. Functional Status: Reports: Pain Controlled - Review of Systems General: Reports: No Symptoms HEENT: Reports: No Symptoms Pulmonary: Reports: No Symptoms Cardiovascular: Reports: No Symptoms Musculoskeletal: Reports: No Symptoms - Patient Data Vitals - Most Recent: Last Vital Signs Temp 98.1 F 06/03/21 08:18 Pulse 82 06/03/21 03:08 Resp 24 H 06/03/21 08:18 BP 161/80 H 06/03/21 08:21 Pulse Ox 92 L 06/03/21 09:02 Weight - Most Recent: 409 lb 6.4 oz I&O - Last 24 hours: Intake & Output 06/03/21 06/03/21 06/03/21 06:59 14:59 22:59 Intake Total 400 Balance 400 Lab Results - Last 24 hrs: Laboratory Results - last 24 hr 06/03/21 06/03/21 06/03/21 Range/Units 06:52 06:52 06:52 WBC 13.82 H (4.23-9.07) K/mm3 RBC 5.61 (4.63-6.08) M/mm3 Hgb 15.0 (13.7-17.5) gm/dl Hct 46.7 (40.1-51.0) % MCV 83.2 (79.0-92.2) fl MCH 26.7 (25.7-32.2) pg MCHC 32.1 L (32.2-35.5) g/dl RDW Std Deviation 49.3 H (35.1-43.9) fL Plt Count 244 (163-337) K/mm3 MPV 8.6 L (9.4-12.3) fl Neut % (Auto) 59.4 (34.0-67.9) % Lymph % (Auto) 24.7 (21.8-53.1) % [place] % (Auto) 7.4 (5.3-12.2) % Eos % (Auto) 2.0 (0.8-7.0) Baso % (Auto) 0.3 (0.1-1.2) % Neut # (Auto) 8.21 H (1.78-5.38) K/mm3 Lymph # (Auto) 3.42 (1.32-3.57) K/mm3 [place] # (Auto) 1.02 H (0.30-0.82) K/mm3 Eos # (Auto) 0.28 (0.04-0.54) K/mm3 Baso # (Auto) 0.04 (0.01-0.08) K/mm3 Manual Slide Review Abnormal smear D-Dimer, Quantitative 1.03 H (0.19-0.50) mg/L Sodium 142 (136-145) mEq/L Potassium 4.3 (3.5-5.1) mEq/L Chloride 105 (98-107) mEq/L Carbon Dioxide 25 (21-32) mEq/L Anion Gap 16.3 H (5-15) BUN 20 H (7-18) mg/dL Creatinine 0.9 (0.7-1.3) mg/dL Est Cr Clr Drug Dosing 104.15 mL/min Estimated GFR (MDRD) > 60 (>60) mL/min BUN/Creatinine Ratio 22.2 H (14-18) Glucose 89 (70-99) mg/dL Calcium 8.7 (8.5-10.1) mg/dL Phosphorus 6.5 H (2.6-4.7) mg/dL Magnesium 2.4 (1.8-2.4) mg/dL Total Bilirubin 0.5 (0.2-1.0) mg/dL AST 79 H (15-37) U/L ALT 243 H (16-63) U/L Alkaline Phosphatase 71 (46-116) U/L C-Reactive Protein <0.2 (<1.0) mg/dL Total Protein 6.5 (6.4-8.2) g/dl Albumin 3.5 (3.4-5.0) g/dl Globulin 3.0 gm/dL Albumin/Globulin Ratio 1.2 (1-2) Med Orders - Current: Current Medications Acetaminophen (Acetaminophen 325 Mg Tab) 650 mg PO Q4H PRN PRN Reason: Pain (Mild 1-3)/fever Acetaminophen/Codeine Phosphate (Acetaminophen/Codeine 300-30 Mg Tab) 2 tab PO Q4H PRN PRN Reason: Cough Last Admin: 05/31/21 22:50 Dose: 2 tab Documented by: Albuterol (Albuterol 6.7 Gm Inhaler) 0 gm INH Q4H PRN PRN Reason: Shortness of Breath Last Admin: 06/03/21 09:02 Dose: 2 puff Documented by: Albuterol/Ipratropium (Albuterol/Ipratropium 3.0-0.5 Mg/3 Ml Neb Soln) 3 ml NEB Q4H PRN PRN Reason: Shortness Of Breath/wheezing Last Admin: 06/02/21 21:16 Dose: 3 ml Documented by: Apixaban (Apixaban 5 Mg Tab) 5 mg PO BID [facility] Last Admin: 06/03/21 08:24 Dose: 5 mg Documented by: Benzonatate (Benzonatate 100 Mg Cap) 200 mg PO TID PRN PRN Reason: Cough Last Admin: 05/31/21 20:33 Dose: 200 mg Documented by: Calcium Carbonate/Glycine (Calcium Carbonate 500 Mg Tab.Chew) 500 mg PO BID [facility] Last Admin: 06/03/21 08:24 Dose: 500 mg Documented by: Guaifenesin (Guaifenesin 600 Mg Tab.Er) 600 mg PO BID [facility] Last Admin: 06/03/21 08:24 Dose: 600 mg Documented by: Hydroxyzine HCl (Hydroxyzine Hcl 25 Mg Tab) 25 mg PO Q6H PRN PRN Reason: Anxiety Last Admin: 05/30/21 03:31 Dose: 25 mg Documented by: Nystatin (Nystatin Topical Powder 15 Gm Bottle) 0 gm TOP Q6H PRN PRN Reason: Itching Last Admin: 05/31/21 20:36 Dose: 1 applicful Documented by: Ondansetron HCl (Ondansetron 4 Mg/2 Ml Sdv) 4 mg IV Q6H PRN PRN Reason: Nausea/Vomiting Last Admin: 05/24/21 16:15 Dose: 4 mg Documented by: Sodium Chloride (Sodium Chloride 0.9% 10 Ml Syringe) 10 ml FLUSH ASDIRECTED PRN PRN Reason: Keep Vein Open Last Admin: 05/23/21 10:20 Dose: 10 ml Documented by: Temazepam (Temazepam 15 Mg Cap) 15 mg PO BEDTIME PRN PRN Reason: Insomnia Last Admin: 06/02/21 21:29 Dose: 15 mg Documented by: Discontinued Medications Acetylcysteine (Acetylcysteine 20% 200 Mg/Ml 4 Ml Nebulizer Soln Sdv) 600 mg NEB ONETIME ONE Stop: 05/24/21 09:01 Last Admin: 05/24/21 08:48 Dose: 600 mg Documented by: Acetylcysteine (Acetylcysteine 20% 200 Mg/Ml 4 Ml Nebulizer Soln Sdv) 600 mg NEB TID [facility] Last Admin: 05/24/21 15:03 Dose: 600 mg Documented by: Acetylcysteine (Acetylcysteine 20% 200 Mg/Ml 4 Ml Nebulizer Soln Sdv) 600 mg NEB Q6H [facility] Last Admin: 05/26/21 14:22 Dose: 600 mg Documented by: Dexamethasone (Dexamethasone 4 Mg/Ml Sdv) 6 mg IVPUSH ONETIME ONE Stop: 05/23/21 12:50 Last Admin: 05/23/21 17:56 Dose: 6 mg Documented by: Dexamethasone (Dexamethasone 10 Mg/Ml Sdv) Confirm Administered Dose 10 mg .ROUTE .STK-MED ONE Stop: 05/23/21 16:24 Last Admin: 05/23/21 17:55 Dose: Not Given Documented by: Dexamethasone (Dexamethasone 4 Mg Tab) 6 mg PO DAILY [facility] Stop: 06/01/21 09:01 Last Admin: 06/01/21 08:28 Dose: 6 mg Documented by: Enoxaparin Sodium (Enoxaparin 40 Mg/0.4 Ml Syringe) 40 mg SUBCUT BID [facility] Last Admin: 05/28/21 08:08 Dose: 40 mg Documented by: Furosemide (Furosemide 20 Mg/2 Ml Vial) 20 mg IVPUSH ONETIME ONE Stop: 05/24/21 17:11 Last Admin: 05/24/21 17:25 Dose: 20 mg Documented by: Remdesivir 200 mg/ Sodium (Chloride) 250 mls @ 250 mls/hr IV ONETIME ONE Stop: 05/23/21 12:49 Last Admin: 05/23/21 17:51 Dose: 250 mls/hr Documented by: Remdesivir (Remdesivir) Confirm Administered Dose 100 mls @ as directed .ROUTE .STK-MED ONE Stop: 05/23/21 16:24 Last Admin: 05/23/21 18:10 Dose: Not Given Documented by: Sodium Chloride (Normal Saline) Confirm Administered Dose 250 mls @ as directed .ROUTE .STK-MED ONE Stop: 05/23/21 16:26 Last Admin: 05/23/21 18:13 Dose: Not Given Documented by: Remdesivir (Remdesivir) Confirm Administered Dose 100 mls @ as directed .ROUTE .STK-MED ONE Stop: 05/23/21 16:31 Last Admin: 05/23/21 18:13 Dose: Not Given Documented by: Remdesivir 100 mg/ Sodium (Chloride) 100 mls @ 100 mls/hr IV Q24H LIS Stop: 05/27/21 18:59 Last Admin: 05/27/21 18:14 Dose: 100 mls/hr Documented by: Tocilizumab 800 mg/ Sodium (Chloride) 100 mls @ 100 mls/hr IV ONETIME ONE Stop: 05/24/21 08:59 Last Admin: 05/24/21 09:38 Dose: 100 mls/hr Documented by: Sodium Chloride (Normal Saline) 500 mls @ 999 mls/hr IV .BOLUS ONE Stop: 05/25/21 19:45 Last Admin: 05/25/21 18:54 Dose: 999 mls/hr Documented by: Sodium Chloride (Sodium Chloride 3% Inhalation Soln 4 Ml Neb) 3 ml NEB Q6HRRT [facility] Last Admin: 05/26/21 14:22 Dose: 3 ml Documented by: - Exam Quality Assessment: Reports: Supplemental Oxygen General: Reports: Alert, Oriented HEENT: Reports: Pupils Equal, Mucous Membr. Moist/[place] Neck: Reports: Supple Lungs: Reports: Normal Respiratory Effort, Decreased Breath Sounds Cardiovascular: Reports: Regular Rate, Regular Rhythm GI/Abdominal Exam: Normal Bowel Sounds, Soft, Non-Tender, No Distention Extremities: Normal Inspection, Normal Range of Motion, Non-Tender, No Pedal Edema, Normal Capillary Refill
[2021-06-03 15:18] VITALS: BP 142/73; PULSE 86
[2021-06-03] MEDS ORDERED: FLU Vacc QS2021-22 36MOS UP/PF 60 MCG/0.5 ML Syringe IM ONE (16:00)
== END 2021-06-03 16:30 | disposition home or self-care (01) | DRG 177 ==
LOC: JD.ED 09:25 → JD.ICU 16:56 → UNDOADMIN 16:56 → JD.ICU 16:57 → UNDOADMIN 16:57 → JD.MS 06-01 10:00 → UNDOADMIN 06-01 10:00 → JD.ICU 06-01 10:00 → JD.MS 06-01 15:56
PROVIDERS: ADMIT Family Medicine; ATTEND Family Medicine
PROC: 8E0ZXY6 Isolation (ICD-10-PCS; principal; 2021-06-01)
PROC: XW033E5 Introduction of Remdesivir Anti-infective into Peripheral Vein, Percutaneous Approach, New Technology Group 5 (ICD-10-PCS; 2021-06-01)
PROC: 3E0333Z Introduction of Anti-inflammatory into Peripheral Vein, Percutaneous Approach (ICD-10-PCS; 2021-06-01)
DX: U07.1 COVID-19 (principal); J12.82 Pneumonia due to coronavirus disease 2019; J96.01 Acute respiratory failure with hypoxia; Z68.45 Body mass index [BMI] 70 or greater, adult; K76.0 Fatty (change of) liver, not elsewhere classified; E66.01 Morbid (severe) obesity due to excess calories
CPT/HCPCS: 36415; 36600; 51702; 71275; 71275-26; 80048; 80053; 80076; 82803; 83605; 83735; 83880; 84100; 84145; 84484; 85025; 85027; 85379; 86140; 90686; 93005; 94640; 94660; 94762; 99285-25; A9270-GY; G0008; J1100; J1650; J1940; J2405; J7030; J7050; J7620-GY; J8540; Q0249

== ENCOUNTER 2023-04-05 04:42 | Emergency (ER) | payer MEDICAID, OTHER ==
[2023-04-05] MEDS ORDERED: Ketorolac 60 MG/2 ML SDV IM ONE (05:29)
[2023-04-05] MEDS ORDERED: Acetaminophen/oxyCODONE 325-5 MG Tab PO ONE (05:29)
[2023-04-05] MEDS ORDERED: Lidocaine 1% 10 ML MDV INJECT ONE (05:36)
[2023-04-05 08:08] VITALS: BP 135/73; PULSE 73
== END 2023-04-05 07:43 | disposition home or self-care (01) ==
LOC: JD.ED 04:42
DX: M79.674 Pain in right toe(s) (principal); M79.675 Pain in left toe(s); E66.9 Obesity, unspecified; Z68.45 Body mass index [BMI] 70 or greater, adult; Z86.16 Personal history of COVID-19; Z91.048 Other nonmedicinal substance allergy status
CPT/HCPCS: 64450; 96372; 99283; A9270; J1885; 17250; 99282; J3490

== ENCOUNTER 2024-06-16 14:03 | Emergency (ER) | payer OTHER ==
[2024-06-16 15:26] LABS: CORONAVIRUS COVID-19 NAA NEGATIVE (NEGATIVE); INFLUENZA A NAA NEGATIVE (NEGATIVE); RESPIRATORY SYNCYTIAL VIR NAA NEGATIVE (NEGATIVE)
[2024-06-16 17:30] LABS: BASOPHILS ABSOLUTE AUTO 0.1 K/mm3 (0.0-0.2); BASOPHILS PERCENT AUTO 0.4 % (0.0-1.0); EOSINOPHILS ABSOLUTE AUTO 0.2 K/mm3 (0.0-0.4); EOSINOPHILS PERCENT AUTO 1.6 % (0.0-6.0); HEMOGLOBIN 14.3 gm/dl (14.0-18.0); IMMATURE GRAN PERCENT AUTO 0.7 % (0.0-0.4); LYMPHOCYTES ABSOLUTE AUTO 3.3 K/mm3 (1.0-4.8); LYMPHOCYTES PERCENT AUTO 23.1 % (24.0-44.0); MEAN CORPUSCULAR HEMOGLOBIN 27.3 pg (28.0-32.0); MEAN CORPUSCULAR HGB CONC 33.3 g/dl (32.0-36.0); MEAN CORPUSCULAR VOLUME 82.2 fl (83.0-99.0); MEAN PLATELET VOLUME 8.3 fl (9.4-12.4); MONOCYTES ABSOLUTE AUTO 0.8 K/mm3 (0.0-0.8); MONOCYTES PERCENT AUTO 5.7 % (0.0-8.0); NEUTROPHILS ABSOLUTE AUTO 9.7 K/mm3 (1.8-7.7); NEUTROPHILS PERCENT AUTO 68.5 % (41.0-71.0); PLATELET COUNT,PLT 217 K/mm3 (150-400); RED BLOOD CELL COUNT 5.23 M/mm3 (4.52-5.90); WHITE BLOOD CELL COUNT,WBC 14.15 K/mm3 (3.9-11.3)
[2024-06-16 17:54] LABS: ALANINE AMINOTRANSFERASE,ALT 48 U/L (16-63); ALBUMIN 3.6 g/dl (3.4-5.0); ALKALINE PHOSPHATASE 130 U/L (46-116); ANION GAP 8.9 (5-15); ASPARTATE AMNIOTRANSFERASE,AST 31 U/L (15-37); BILIRUBIN TOTAL 0.4 mg/dL (0.2-1.0); BLOOD UREA NITROGEN,BUN 11 mg/dL (7-18); BUN/CREATININE RATIO 12.2 (14-18); CALCIUM 9.1 mg/dL (8.5-10.1); CARBON DIOXIDE,CO2 31 mEq/L (21-32); CHLORIDE,CL 103 mEq/L (98-107); CREATININE 0.9 mg/dL (0.7-1.3); ESTIMATED GFR 119 mL/min (>60); GLUCOSE RANDOM 83 mg/dL (70-99); POTASSIUM,K 3.9 mEq/L (3.5-5.1); PROTEIN TOTAL,TP 7.1 g/dl (6.4-8.2); SODIUM,NA 139 mEq/L (136-145)
[2024-06-16 18:01] LABS: TROPONIN I HIGH SENSITIVITY < 4 pg/mL (<=76)
[2024-06-16 20:13] VITALS: BP 127/57; PULSE 86
== END 2024-06-16 20:12 | disposition home or self-care (01) ==
LOC: JD.ED 14:03
DX: R07.89 Other chest pain (principal); E66.9 Obesity, unspecified; Z86.16 Personal history of COVID-19; Z79.899 Other long term (current) drug therapy; Z91.048 Other nonmedicinal substance allergy status
CPT/HCPCS: 0241U; 36415; 71046; 80053; 84484; 85025; 85379; 87651; 93005; 99285; 93010; 99283